=== PATIENT | female | born 1990 | race Caucasian/White ===

== ENCOUNTER → 2018-12-05 11:09 | Outpatient (CLI) | payer OTHER, SELFPAY ==
--- NOTE | 2018-12-05 11:30 | XR_ITS ---
EXAM: XR lumbar spine 2-3V HISTORY: ITS.REASON: LOW BACK PAIN ORDERING PHYSICIAN: Kerry Marcos PATIENT AGE: 28 years COMPARISON: None FINDINGS: Normal alignment. No fracture or dislocation. No lytic or blastic change. No significant degenerative change. The disc spaces are preserved. There is a limbus vertebra involving the anterosuperior aspect of L4 IMPRESSION: No acute finding Limbus vertebra of L4
--- NOTE | 2018-12-05 11:30 | XR_ITS ---
XR hip RT 2-3V w/pelvis HISTORY: ITS.REASON: RT HIP PAIN ORDERING PHYSICIAN: Kerry Marcos PATIENT AGE: 28 years COMPARISON: None FINDINGS: No fracture or dislocation is evident. No significant degenerative change. No lytic or blastic change. Unremarkable soft tissues IMPRESSION: Negative hip
[2018-12-05 12:06] LABS: Urine Pregnancy, HCG Qual. Negative (Negative)
== END ==
PROVIDERS: Radiology Diagnostic Radiology; PCP Nurse Practitioner Family; Visit Provider Nurse Practitioner Family
DX: M54.5 Low back pain (principal); M25.551 Pain in right hip
CPT/HCPCS: 72100; 73502; 81025

== ENCOUNTER → 2019-02-09 18:15 | Outpatient (CLI) | payer OTHER, SELFPAY ==
[2019-02-13 07:01] LABS: Neisseria gonorrhoeae, NAA Negative (Negative)
== END ==
PROVIDERS: Visit Provider Nurse Practitioner Obstetrics & Gynecology
DX: R39.89 Other symptoms and signs involving the genitourinary system (principal); Z72.51 High risk heterosexual behavior
CPT/HCPCS: 87086; 87088; 87186; 87491; 87591

== ENCOUNTER → 2019-04-12 11:44 | Outpatient (CLI) | payer OTHER, SELFPAY ==
--- NOTE | 2019-04-12 11:48 | XR_ITS ---
XR shoulder RT min 2V HISTORY: Right shoulder pain ITS.REASON: RT ARM PAIN ORDERING PHYSICIAN: Kady Coelho APRN PATIENT AGE: 28 years Comparison: None FINDINGS: No fracture or dislocation. No lytic or blastic change. There is normal mineralization. The joint spaces are well-preserved. No significant degenerative/arthritic changes. No erosive changes evident. IMPRESSION: Negative, no acute finding
--- NOTE | 2019-04-12 11:48 | XR_ITS ---
EXAM: XR cervical spine 3V HISTORY: ITS.REASON: RT ARM PAIN ORDERING PHYSICIAN: Kady Coelho APRN PATIENT AGE: 28 years COMPARISON: None FINDINGS: Normal alignment. No fracture or dislocation. No lytic or blastic change. No significant degenerative change. The disc spaces are preserved. There is reversal the cervical lordosis which may be due to patient positioning or muscle spasm. No cervical rib IMPRESSION: Reversal of lordosis otherwise negative
== END ==
PROVIDERS: PCP Nurse Practitioner Family; Visit Provider Nurse Practitioner Family
DX: M79.601 Pain in right arm (principal); M40.50 Lordosis, unspecified, site unspecified
CPT/HCPCS: 72040; 73030

== ENCOUNTER 2019-05-21 08:30 | Outpatient (RCR) | payer OTHER, SELFPAY | END 2019-05-21 08:35 | disposition home or self-care (01) | LOC: PT 08:30 | PROVIDERS: Visit Provider Nurse Practitioner Family | DX: M54.2 Cervicalgia (principal) | CPT/HCPCS: 97010; 97035; 97110; 97140; 97163 ==

== ENCOUNTER → 2019-05-21 11:46 | Outpatient (CLI) | payer OTHER, SELFPAY ==
[2019-05-21 15:06] LABS: HCG,Quantitative 12773 mIU/mL
== END ==
PROVIDERS: PCP Nurse Practitioner Obstetrics & Gynecology; Visit Provider Emergency Medicine
DX: Z32.00 Encounter for pregnancy test, result unknown (principal)
CPT/HCPCS: 36415; 84702

== ENCOUNTER → 2019-06-04 10:45 | Outpatient (CLI) | payer OTHER, SELFPAY ==
[2019-06-04 11:23] LABS: Basophils % 0.1 % (0.1-2.0); Eosinophils # 0.1 K/mm3 (0.0-0.4); Eosinophils % 0.5 % (0.1-12.0); Hematocrit 35.4 % (37.0-47.0); Hemoglobin 11.7 g/dL (12.2-16.2); Lymphocytes # 1.8 K/mm3 (0.7-4.5); Lymphocytes % 20.2 % (10-50); Mean Corpuscular HGB Conc 33.2 g/dL (31.8-35.4); Mean Corpuscular Hemoglobin 28.6 pg (27.0-31.2); Mean Corpuscular Volume 86.2 fl (81-99); Mean Platelet Volume 6.9 fl (7.4-10.4); Monocytes # 0.3 K/mm3 (0.1-1.0); Monocytes % 3.7 % (1.7-9.3); Neutrophils # 6.8 K/mm3 (1.8-7.8); Neutrophils % 75.5 % (37.0-80.0); Platelet Count 288 K/mm3 (142-424); Red Blood Count 4.11 M/mm3 (4.20-5.40); Red Cell Distribution Width 13.2 % (11.5-17.5)
[2019-06-05 08:42] LABS: HIV Screen 4th Generation wRfx Non Reactive (Non Reactive); Rubella Antibodies, IgG <0.90 index (Immune >0.99)
[2019-06-07 08:05] LABS: Rapid Plasma Reagin Ab Titer Non Reactive (NonRea<1:1)
[2019-06-07 08:16] LABS: Hepatitis B Surface Antigen Negative (Negative); Hepatitis C Antibody <0.1 s/co ratio (0.0-0.9)
== END ==
PROVIDERS: Visit Provider Nurse Practitioner Obstetrics & Gynecology
DX: Z34.90 Encounter for supervision of normal pregnancy, unspecified, unspecified trimester (principal)
CPT/HCPCS: 36415; 85025; 86592; 86703; 86762; 86850; 87340; 87380; G0432

== ENCOUNTER → 2019-06-06 14:07 | Outpatient (CLI) | payer OTHER, SELFPAY ==
--- NOTE | 2019-06-06 14:08 | US_ITS ---
US OB transvaginal CLINICAL INDICATION: ITS.REASON: Dates OB before 12 wks, spotting in first trimeste ORDERING PHYSICIAN: Randolph Mejia MD PATIENT AGE: 28 years Comparison: 05/17/2019. FINDINGS: Uterus shows a gestational sac with pole and yolk sac within the endometrial cavity. The crown-rump length is 1.85 cm corresponding to 8 weeks and 3 days gestational age. Heart rate is 179 8/m. Right ovary is 3.8 x 1.8 x 2.3 cm with normal blood flow. Left ovary is 2.6 x 1.6 x 2.6 cm also with normal blood flow. There are no adnexal lesions. There is no fluid in the cul-de-sac. IMPRESSION: Intrauterine fetus approximately 8 weeks and 3 days gestational age and heart rate of 179 bpm.
== END ==
PROVIDERS: PCP Nurse Practitioner Family; Visit Provider Nurse Practitioner Obstetrics & Gynecology
DX: O26.841 Uterine size-date discrepancy, first trimester (principal); O26.851 Spotting complicating pregnancy, first trimester
CPT/HCPCS: 76817

== ENCOUNTER 2019-06-27 09:30 | Outpatient (CLI) | payer OTHER, SELFPAY ==
[2019-06-27 10:03] VITALS: BP 115/71; PULSE 85; RESP 20; TEMP 36.5; O2SAT 99
== END 2019-06-27 10:20 | disposition home or self-care (01) ==
PROVIDERS: PCP Nurse Practitioner Family; Visit Provider Nurse Practitioner Obstetrics & Gynecology
DX: Z34.90 Encounter for supervision of normal pregnancy, unspecified, unspecified trimester (principal)
CPT/HCPCS: 87086; 96372

== ENCOUNTER 2019-06-27 12:23 | Observation (INO) ==
--- NOTE | 2019-06-27 12:58 | Emergency Department Note ---
ED Disposition Clinical Impression: UTI (urinary tract infection) in in first trimester Disposition: Admitted as Observation Condition on Discharge: Good Referrals: Kerry Marcos APRN [Primary Care Provider] - Time of Disposition: 14:44 - Critical Care Critical Care Time: No Attestation: On 06/27/19, the high probability of a clinically significant, sudden or life threatening deterioration of the following system(s) required my full and direct attention, intervention and personal management. The time I documented below is in addition to time spent performing reported procedures but includes the following listed in this critical care notation. Medical Decision Making - Medical Records Medical records reviewed: Yes: I reviewed the patient's medical records. - Christiano Inquiry Pt receiving controlled substance: No Christiano was queried for this patient: No Vital Signs: 06/27/19 12:32 Temperature 98.3 F Temperature Source Oral Pulse Rate [Left Radial] 94 H Respiratory Rate 16 Blood Pressure [Right Arm] 125/83 Blood Pressure Mean [Right Arm] 97 Blood Pressure Source [Right Arm] Automatic Cuff Blood Pressure Position [Right Arm] Sitting 02 Sat by Pulse Oximetry 98 Oxygen Delivery Method Room Air - Lab Data Lab results reviewed: Yes: I reviewed the patient's lab results. Lab Results 06/27/19 12:55: Urine Color Red, Urine Appearance Clear, Urine pH 5.0, Ur Specific [place] 1.025, Urine Protein 2+, Urine Glucose (UA) 1+, Urine Ketones 2+, Urine Blood Negative, Urine Nitrate Positive, Urine Bilirubin Negative, Urine Urobilinogen >=8.0, Ur Leukocyte Esterase 1+ A, Urine RBC None, Urine WBC Occasional, Ur Squamous Epith Cells Occasional, Urine Bacteria Trace 06/27/19 13:05: WBC 10.0, RBC 3.90 L, Hgb 12.3, Hct 35.0 L, MCV 89.8, MCH 31.5 H , MCHC 35.1, RDW 13.5, Plt Count 269, MPV 7.1 L, Neut % (Auto) 81.6 H, Lymph % (Auto) 14.6, [place] % (Auto) 3.2, Eos % (Auto) 0.5, Baso % (Auto) 0.2, Neut # (Auto) 8.2 H, Lymph # (Auto) 1.5, [place] # (Auto) 0.3, Eos # (Auto) 0.1, Baso # (Auto) 0.0 06/27/19 13:05: Sodium 137, Potassium 4.0, Chloride 102, Carbon Dioxide 25, Anion Gap 14.0, BUN 7, Creatinine 0.64, Estimated Creat Clear 168, Estimated GFR 111, Est GFR ( Amer) 135, Glucose 94, Calcium 9.3, Total Bilirubin 0.3, AST 17, ALT 16, Alkaline Phosphatase 66, Total Protein 7.5, Albumin 2.9 L, Globulin 4.6 H, Albumin/Globulin Ratio 0.6 L Result diagrams: 06/27/19 13:05 06/27/19 13:05 Orders (Tests/Meds): ORDERS Category Date Time Status Urine Culture Stat Micro 06/27/19 12:55 Received - Physician Consults Physician Consulted: ana dey Time: 14:43 Reason -: Admission Nausea/Vomiting/Diarrhea HPI - General Chief complaint: Nausea/Vomiting/Diarrhea Stated complaint: 12 weeks ,has uti, vomiting Time Seen by Provider: 06/27/19 12:54 Mode of Arrival: Ambulatory Source of Information: Patient Limitations: No Limitations Description of Symptoms (Recalled from ER Triage Doc. by RN): to ed per pvt car pt sent to ed per dr biggs for eval due to nausea, vomiting, upper abd cramping starting today after receiving Rocephin IM for UTI. pt states symptoms started approx 1hr after receiving injection. - Related Data Home Medications Medication Instructions Recorded Confirmed pediatric multivitamin no.7-folic 100 mcg PO DAILY tab 06/04/19 06/27/19 acid 100 mcg chewable tablet Terconazole 1 appful VAGINAL QHS 06/27/19 06/27/19 cephALEXin [Keflex 500mg Cap] 1,000 mg PO BID 06/27/19 06/27/19 Previous Rx's Medication Instructions Recorded Promethazine HCl [Phenergan 25mg 25 mg PO Q6H PRN 3 Days #10 tab 06/20/19 tab] Allergies Allergy/AdvReac Type Severity Reaction Status Date / Time amoxicillin [From Augmentin] Allergy Mild reaction Verified 06/27/19 10:03 as a child (rash) clavulanic acid Allergy Mild reaction Verified 06/27/19 10:03 [From Augmentin] as a child (rash) sulfisoxazole Allergy Mild REACTION Verified 06/27/19 10:03 [From Pediazole] WHEN SHE WAS A CHILD (rash) azithromycin [From Zithromax] AdvReac Mild NA-NAUSEA/V Verified 06/27/19 09:04 OMITING erythromycin base AdvReac Mild NA-NAUSEA/V Verified 06/27/19 09:04 OMITING H History - Hepatitis A Screen Drug use history?: No High risk sexual behaviors?: No History of sexually transmitted infection?: No Currently employed?: No Childcare worker?: No Do you have indoor plumbing?: Yes Do you have electricity?: Yes Attestation statement:: This patient has been screened for Hepatitis A risk factors. I have reviewed the patient's past medical history: Yes Amputation: No Fractures: No - Social History Smoking Status: Never smoker Alcohol Intake: never Substance Use Type: denies use Occupational Status: other Family Hx:: Asthma, Diabetes, Stroke, Cancer Para: 2 ROS Obtained: Yes All systems reviewed & no additional complaints - Constitutional Constitutional: Denies fever(s) - Eyes Eyes: Denies change in vision - Cardiovascular Cardiovascular: Denies chest pain, Denies chest pain at rest, Denies diaphoresis, Denies dyspnea - Respiratory Respiratory: No chest congestion, No cough, No dyspnea - Gastrointestinal Gastrointestingal: Reports: abdominal pain, vomiting - Genitourinary Male Genitourinary: Reports other (weeks ) - Musculoskeletal Musculoskeletal: Denies joint pain, Denies joint stiffness, Denies joint swelling - Integumentary/Breasts Skin/Breast: Denies rash, Denies skin pain - Neurologic Neurologic: Denies headache(s) - Hematologic/Lymphatic Henatologic/Lymphatic: Denies easy bleeding, Denies easy bruising Physical Exam - General General appearance: alert, in no apparent distress - Head Head exam: atraumatic, normocephalic, normal inspection - Eye Eye exam: Present: normal appearance, PERRL, EOMI - ENT ENT exam: Present: normal exam, normal oropharynx, mucous membranes moist, TM's normal bilaterally, normal external ear exam - Neck Neck exam: Present: normal inspection, full ROM, trachea midline. Absent: meningismus, lymphadenopathy - Chest Chest inspection: Present: normal inspection, symmetric chest wall rise. Absent: tenderness - Respiratory Respiratory exam: Present: normal lung sounds bilaterally - Cardiovascular Cardiovascular exam: Present: regular rate, normal rhythm. Absent: JVD - Abdominal Exam Abdominal exam: Present: soft, tenderness. Absent: distention Abdominal tenderness: Present: suprapubic - Extremities Exam Extremities exam: Present: normal inspection, full ROM, normal capillary refill. Absent: calf tenderness - Back Exam Back exam: Present: normal inspection. Absent: tenderness - Neurological Exam Neurological exam: Present: alert, oriented X3 - Psychiatric Psychiatric exam: Present: normal affect, normal mood - Skin Skin exam: Present: warm, dry, intact, normal color - Lymphatic Lymphatic Findings: no adenopathy
[2019-06-27 13:00] LABS: Microscopic, Urine URINE MICROSCOPIC (MICROSCOPIC)
[2019-06-27 13:21] LABS: Basophils % 0.2 % (0.1-2.0); Eosinophils # 0.1 K/mm3 (0.0-0.4); Eosinophils % 0.5 % (0.1-12.0); Hemoglobin 12.3 g/dL (12.2-16.2); Lymphocytes # 1.5 K/mm3 (0.7-4.5); Lymphocytes % 14.6 % (10-50); Mean Corpuscular HGB Conc 35.1 g/dL (31.8-35.4); Mean Corpuscular Volume 89.8 fl (81-99); Mean Platelet Volume 7.1 fl (7.4-10.4); Monocytes # 0.3 K/mm3 (0.1-1.0); Monocytes % 3.2 % (1.7-9.3); Neutrophils # 8.2 K/mm3 (1.8-7.8); Neutrophils % 81.6 % (37.0-80.0); Platelet Count 269 K/mm3 (142-424); Red Cell Distribution Width 13.5 % (11.5-17.5)
[2019-06-27 13:26] LABS: Appearance,Urine CLEAR (Clear); Bilirubin,Urine Negative (Negative); Blood, Urine Negative (Negative); Glucose,Urine (UA) 1+ (Negative); Ketones,Urine 2+ (Negative); Leukocyte Esterase,Urine 1+ (Negative); Protein,Urine 2+ (Negative); Specific Gravity, Urine 1.025 (1.005-1.030); Urobilinogen,Urine >=8.0 EU/dl (0.2)
[2019-06-27 13:36] LABS: Color,Urine Red (Yellow)
[2019-06-27 13:37] LABS: Bacteria,Urine Trace /lpf; Squamous Epithelial Cell,Urine Occasional #/hpf (0-5); WBC,Urine Occasional #/hpf (0-3)
[2019-06-27 13:44] LABS: Albumin Level 2.9 gm/dL (3.4-5.0); Albumin/Globulin Ratio 0.6 (1.1-1.8); Bilirubin,Total 0.3 mg/dL (0.2-1.0); Calcium 9.3 mg/dL (8.5-10.1); Globulin 4.6 gm/dl (1.3-3.2); Total Protein,Serum 7.5 gm/dL (6.4-8.2)
[2019-06-28 04:51] VITALS: BP 98/58
[2019-06-28 06:33] LABS: Eosinophils # 0.1 K/mm3 (0.0-0.4); Monocytes # 0.3 K/mm3 (0.1-1.0); Red Cell Distribution Width 13.5 % (11.5-17.5)
[2019-06-28 06:43] LABS: Anion Gap 14.7 mEq/L (5-15); Calcium 8.9 mg/dL (8.5-10.1)
[2019-06-28 06:50] LABS: Basophils % 0.1 % (0.1-2.0); Eosinophils % 1.6 % (0.1-12.0); Lymphocytes % 27.8 % (10-50); Mean Corpuscular HGB Conc 33.5 g/dL (31.8-35.4); Mean Corpuscular Volume 90.2 fl (81-99); Mean Platelet Volume 6.9 fl (7.4-10.4); Monocytes % 4.1 % (1.7-9.3); Neutrophils # 4.8 K/mm3 (1.8-7.8); Neutrophils % 66.4 % (37.0-80.0); Platelet Count 234 K/mm3 (142-424); Red Blood Count 3.55 M/mm3 (4.20-5.40); White Blood Count 7.3 K/mm3 (4.8-10.8)
[2019-06-28 07:17] LABS: Hemoglobin 10.7 g/dL (12.2-16.2)
--- NOTE | 2019-06-28 09:49 | History & Physical Report ---
OB - H&P: HPI Antepartum - History of Present Illness Chief complaint: Nausea vomiting and diarrhea, UTI History of present illness: She is a 28-year-old 2 para 1 at 12 weeks gestational age. She has had a urinary tract infection for the last couple of weeks and was recently seen in the ER. She was seen in my office the day of admission and started on Rocephin again for her UTI. She had been taking Keflex. She said that shortly after she received her Rocephin she began having nausea and vomiting as well as diarrhea. She came back to the ER. As result of this we elected to admit her for rehydration and observation. - History of Present Criteria for establishing EDC:: LMP confirmed by 1st trimester US Obstetrical complications: none Medical complications: none [facility] History I have reviewed the patient's past medical history: Yes *Have you ever received a pneumonia vaccine?: No *Have you received a flu vaccine this season?: No Other Surgeries: No: Amputation: No Fractures: No - *Social History Smoking Status: Never smoker Alcohol Intake: never Substance Use Type: denies use *Occupational Status:: employed *Travel in the last 8 weeks: None Family Hx:: Asthma, Diabetes, Stroke, Cancer Para: 2 Review of Systems - Review of Systems Review of systems:: pertinent systems reviewed and negative unless documented below (, Upon) - *Neurologic Denies headache(s) Meds Home Medications Medication Instructions Recorded Confirmed Type pediatric multivitamin no.7-folic 100 mcg PO DAILY tab 06/04/19 06/27/19 History acid 100 mcg chewable tablet Promethazine HCl [Phenergan 25mg 25 mg PO Q6H PRN 3 Days #10 tab 06/20/19 06/27/19 Rx tab] RX: Terconazole 1 appful VAGINAL QHS 06/27/19 06/27/19 History cephALEXin [Keflex 500mg Cap] 1,000 mg PO BID 06/27/19 06/27/19 History Allergies Allergy/AdvReac Type Severity Reaction Status Date / Time amoxicillin [From Augmentin] Allergy Mild reaction Verified 06/27/19 10:03 as a child (rash) clavulanic acid Allergy Mild reaction Verified 06/27/19 10:03 [From Augmentin] as a child (rash) sulfisoxazole Allergy Mild REACTION Verified 06/27/19 10:03 [From Pediazole] WHEN SHE WAS A CHILD (rash) azithromycin [From Zithromax] AdvReac Mild NA-NAUSEA/V Verified 06/27/19 09:04 OMITING erythromycin base AdvReac Mild NA-NAUSEA/V Verified 06/27/19 09:04 OMITING OB - H&P: Exam - Physical Exam Vital signs: Temp Pulse Resp BP Pulse Ox 98.1 F 83 14 98/58 L 97 06/28/19 04:46 06/28/19 04:46 06/28/19 04:46 06/28/19 04:46 06/28/19 04:46 OB - Results - Labs Labs: Short CBC 06/27/19 06/28/19 Range/Units 13:05 05:56 WBC 10.0 7.3 D (4.8-10.8) K/mm3 Hgb 12.3 10.7 L D (12.2-16.2) g/dL Hct 35.0 L 32.0 L (37.0-47.0) % Plt Count 269 234 (142-424) K/mm3 BMP 06/27/19 06/28/19 13:05 05:56 Sodium 137 138 Potassium 4.0 3.7 Chloride 102 103 Carbon Dioxide 25 24 BUN 7 7 Creatinine 0.64 0.67 Glucose 94 144 H D Calcium 9.3 8.9 Liver Function 06/27/19 Range/Units 13:05 Total Bilirubin 0.3 (0.2-1.0) mg/dL AST 17 (15-37) U/L ALT 16 (12-78) U/L Alkaline Phosphatase 66 (46-116) U/L Albumin 2.9 L (3.4-5.0) gm/dL Urine 06/27/19 Range/Units 12:55 Urine Color Red (Yellow) Urine Appearance Clear (Clear) Urine pH 5.0 (5.0-8.5) Ur Specific [place] 1.025 (1.005-1.030) Urine Protein 2+ (Negative) Urine Glucose (UA) 1+ (Negative) OB - A/P Antepartum (1) Hyperemesis affecting , antepartum Current visit: Yes Status: Acute (2) UTI (urinary tract infection) Current visit: No Status: Acute - Additional Plan Planning to breastfeed?: No Plan: other Additional Information:: We have admitted her for rehydration as well as control of her nausea and vomiting. We will plan to observe her overnight.
--- NOTE | 2019-06-28 09:51 | Discharge Summary ---
General - General Admission date:: 06/27/19 Discharge date: 06/28/19 HPI HPI: She is a 28-year-old 2 para 1 at 12 weeks gestational age with nausea vomiting and dehydration. She also had diarrhea. She received Rocephin yesterday for urinary tract infection and was concerned about having diarrhea and nausea directly after this. She came into the ER and as result of that we elected to admit her for observation. Hospital Course Hospital Course: She received IV fluids as well as some Phenergan. She is done well overnight. She is eating and drinking and ambulating. She is had no further episodes of nausea vomiting or diarrhea. Objective Vital signs: Temp Pulse Resp BP Pulse Ox 98.1 F 83 14 98/58 L 97 06/28/19 04:46 06/28/19 04:46 06/28/19 04:46 06/28/19 04:46 06/28/19 04:46 no acute distress Results Labs on day of discharge: Labs from last 24 hours 06/28/19 06/28/19 06/27/19 05:56 05:56 13:05 WBC 7.3 D RBC 3.55 L Hgb 10.7 L D Hct 32.0 L MCV 90.2 MCH 30.2 MCHC 33.5 RDW 13.5 Plt Count 234 MPV 6.9 L Neut % (Auto) 66.4 Lymph % (Auto) 27.8 [place] % (Auto) 4.1 Eos % (Auto) 1.6 Baso % (Auto) 0.1 Neut # (Auto) 4.8 Lymph # (Auto) 2.0 [place] # (Auto) 0.3 Eos # (Auto) 0.1 Baso # (Auto) 0.0 Sodium 138 137 Potassium 3.7 4.0 Chloride 103 102 Carbon Dioxide 24 25 Anion Gap 14.7 14.0 BUN 7 7 Creatinine 0.67 0.64 Estimated Creat Clear 161 168 Estimated GFR 106 111 Est GFR ( Amer) 128 135 Glucose 144 H D 94 Calcium 8.9 9.3 Total Bilirubin 0.3 AST 17 ALT 16 Alkaline Phosphatase 66 Total Protein 7.5 Albumin 2.9 L Globulin 4.6 H Albumin/Globulin Ratio 0.6 L Urine Color Urine Appearance Urine pH Ur Specific [place] Urine Protein Urine Glucose (UA) Urine Ketones Urine Blood Urine Nitrate Urine Bilirubin Urine Urobilinogen Ur Leukocyte Esterase Urine RBC Urine WBC Ur Squamous Epith Cells Urine Bacteria 06/27/19 06/27/19 13:05 12:55 WBC 10.0 RBC 3.90 L Hgb 12.3 Hct 35.0 L MCV 89.8 MCH 31.5 H MCHC 35.1 RDW 13.5 Plt Count 269 MPV 7.1 L Neut % (Auto) 81.6 H Lymph % (Auto) 14.6 [place] % (Auto) 3.2 Eos % (Auto) 0.5 Baso % (Auto) 0.2 Neut # (Auto) 8.2 H Lymph # (Auto) 1.5 [place] # (Auto) 0.3 Eos # (Auto) 0.1 Baso # (Auto) 0.0 Sodium Potassium Chloride Carbon Dioxide Anion Gap BUN Creatinine Estimated Creat Clear Estimated GFR Est GFR ( Amer) Glucose Calcium Total Bilirubin AST ALT Alkaline Phosphatase Total Protein Albumin Globulin Albumin/Globulin Ratio Urine Color Red Urine Appearance Clear Urine pH 5.0 Ur Specific [place] 1.025 Urine Protein 2+ Urine Glucose (UA) 1+ Urine Ketones 2+ Urine Blood Negative Urine Nitrate Positive Urine Bilirubin Negative Urine Urobilinogen >=8.0 Ur Leukocyte Esterase 1+ A Urine RBC None Urine WBC Occasional Ur Squamous Epith Cells Occasional Urine Bacteria Trace DS: Diagnosis - Discharge Diagnosis (1) Hyperemesis affecting , antepartum Status: Acute (2) UTI (urinary tract infection) Status: Acute Discharge Plan - Patient Discharge Instructions ACTIVITY: Continue current activity DIET: continue same diet Additional Instructions: DRINK PLENTY OF FLUIDS FOLLOW UP WITH DR. MEJIA ON Tuesday AT 10:45AM Patient Instructions: Vaginal Yeast Infection, Urinary Tract Infection, Antepartum Care - Follow up Plan Follow up with: Randolph Mejia MD [Staff Physician] - Home Medications: Home Medications Medication Instructions Recorded Confirmed Type pediatric multivitamin no.7-folic 100 mcg PO DAILY tab 06/04/19 06/27/19 History acid 100 mcg chewable tablet Promethazine HCl [Phenergan 25mg 25 mg PO Q6H PRN 3 Days #10 tab 06/20/19 06/27/19 Rx tab] RX: Terconazole 1 appful VAGINAL QHS 06/27/19 06/27/19 History cephALEXin [Keflex 500mg Cap] 1,000 mg PO BID 06/27/19 06/27/19 History Prescriptions/Medication Reconciliation: Continued pediatric multivitamin no.7-folic acid 100 mcg chewable tablet 100 mcg PO DAILY tab RX: Terconazole 1 appful VAGINAL QHS Promethazine HCl [Phenergan 25mg tab] 25 mg PO Q6H PRN 3 Days #10 tab PRN Reason: Nausea And Vomiting cephALEXin [Keflex 500mg Cap] 1,000 mg PO BID - Problem Reconciliation Problems Reviewed?: Yes
== END 2019-06-28 10:58 | disposition home or self-care (01) ==
LOC: ER 12:23 → OB 12:23
PROVIDERS: ADMIT Nurse Practitioner Obstetrics & Gynecology; ATTEND Nurse Practitioner Obstetrics & Gynecology
CPT/HCPCS: 36415; 80048; 80053; 81001; 85025; 87086; 99284; G0378

== ENCOUNTER → 2019-08-17 12:40 | Outpatient (CLI) | payer OTHER, SELFPAY ==
--- NOTE | 2019-08-17 12:44 | US_ITS ---
PROCEDURE: US OB /MATERNAL DETAIL CLINICAL INDICATION: us ob complete COMPARISON: OB<[id number] US OB <= 14 weeks fetus from 06/14/2019 FINDINGS: Single viable intrauterine gestation. Cephalic position. Placenta: Posteriorplacenta grade 1. There is average amount fluid. The cervix appears satisfactory. Closed and measuring 4 centimeter in length. Complete survey performed and was unremarkable on the submitted images as in PACS. No discrete anomalies identified on survey imaging by technologist. Active fetus. Three-vessel cord with satisfactory umbilical cord insertion. 4- chamber heart noted. Survey of brain & ventricles Unremarkable. Face and neck survey unremarkable. Diaphragm and chest views unremarkable. Abdomen: Both kidneys noted and unremarkable. Stomach noted and satisfactory. Spine: Survey of the spine satisfactory with no anomalies identified nor imaged. Both arms and legs noted. Visualized portions of the fetus appear to be normal. In Amniotic Fluid: Adequate. Maternal adnexa: No significant findings. Measurements: Average ultrasound age 131 days. Gestational Age 131 days Estimated due date by ultrasound age 0301/13/2020. Estimated weight 247.8 gramsgrams. BPD = 4.16 centimeters equals 18 weeks and 5 days. OFD = 5.45 centimeters equals 19 weeks and 1 day. HC = 15.23 centimeters equals 18 weeks 2 days. AC = 12.89 centimeters equals 18 weeks 4 days. FL = 2.88 centimeters equals 18 weeks 6 days. Growth Percentile= 36 Percent% Heart Rate = 147 bpm Cerebellum = unremarkable. Humerus = unremarkable. HC/AC is 1.18 CI is 0.76 FL/BPD is 0.69 FL/AC is 0.22 IMPRESSION: Single intrauterine fetus in cephalic presentation with heart rate of 147 beats per minute. Estimated gestational age (AUA) is 18 weeks and 5 days. Estimated date of delivery (AUA) is 01/13/2020. Dictated by: Ivan Lara 08/17/2019 14:07 Electronically signed by Ivan Lara in [facility] 08/17/2019 14:07
== END ==
PROVIDERS: PCP Nurse Practitioner Family; Visit Provider Nurse Practitioner Obstetrics & Gynecology
DX: Z36.0 Encounter for antenatal screening for chromosomal anomalies (principal)
CPT/HCPCS: 76811

== ENCOUNTER 2019-08-22 10:50 | Outpatient (CLI) | payer OTHER, SELFPAY ==
[2019-08-22 11:04] VITALS: BP 124/67; PULSE 98; RESP 20; TEMP 36.8; O2SAT 97; BMI 33.3
[2019-08-22 11:21] LABS: Microscopic, Urine URINE MICROSCOPIC (MICROSCOPIC)
[2019-08-22 11:24] LABS: Appearance,Urine CLEAR (Clear); Bilirubin,Urine Negative (Negative); Blood, Urine TRACE-I (Negative); Color,Urine YELLOW (Yellow); Glucose,Urine (UA) Negative (Negative); Ketones,Urine 1+ (Negative); Leukocyte Esterase,Urine 3+ (Negative); Nitrate,Urine Negative (Negative); PH,Urine 6.5 (5.0-8.5); Protein,Urine TRACE (Negative); Specific Gravity, Urine 1.025 (1.005-1.030); Urobilinogen,Urine 0.2 EU/dl (0.2)
[2019-08-22 11:38] LABS: Amphetamine/Metha Screen,Urine Negative ng/mL (<1000); Barbiturates Screen,Urine Negative ng/mL (<200); Benzodiazepines Screen,Urine Negative ng/mL (<200); Cannabinoid Screen,Urine Negative ng/mL (<50); Cocaine Screen,Urine Negative ng/mL (<300); Methadone Screen,Urine Negative ng/mL (<300); Opiate Screen,Urine Negative ng/mL (<300); Phencyclidine Screen,Urine Negative ng/mL (<25)
[2019-08-22 11:47] LABS: Bacteria,Urine 2+ /lpf; WBC,Urine 20-50 #/hpf (0-3)
== END 2019-08-22 11:50 | disposition home or self-care (01) ==
LOC: OBOUT 10:53 → OB 10:53
PROVIDERS: PCP Nurse Practitioner Family; Visit Provider Nurse Practitioner Obstetrics & Gynecology
DX: O23.42 Unspecified infection of urinary tract in pregnancy, second trimester (principal); Z3A.21 21 weeks gestation of pregnancy
CPT/HCPCS: 59025; 80305; 81001; 87086

== ENCOUNTER 2019-09-05 20:30 | Outpatient (CLI) | payer OTHER, SELFPAY ==
[2019-09-05 20:43] VITALS: BP 136/76; PULSE 98; RESP 18; TEMP 36.9; O2SAT 98; BMI 33.5
[2019-09-05 21:16] LABS: Microscopic, Urine URINE MICROSCOPIC (MICROSCOPIC)
[2019-09-05 21:19] LABS: Appearance,Urine CLEAR (Clear); Bilirubin,Urine Negative (Negative); Blood, Urine 1+ (Negative); Color,Urine YELLOW (Yellow); Glucose,Urine (UA) Negative (Negative); Ketones,Urine Negative (Negative); Leukocyte Esterase,Urine 2+ (Negative); Nitrate,Urine Negative (Negative); PH,Urine 5.5 (5.0-8.5); Protein,Urine TRACE (Negative); Specific Gravity, Urine >= 1.030 (1.005-1.030); Urobilinogen,Urine 0.2 EU/dl (0.2)
[2019-09-05 21:27] LABS: Amphetamine/Metha Screen,Urine Negative ng/mL (<1000); Barbiturates Screen,Urine Negative ng/mL (<200); Benzodiazepines Screen,Urine Negative ng/mL (<200); Cannabinoid Screen,Urine Negative ng/mL (<50); Cocaine Screen,Urine Negative ng/mL (<300); Methadone Screen,Urine Negative ng/mL (<300); Opiate Screen,Urine Negative ng/mL (<300); Phencyclidine Screen,Urine Negative ng/mL (<25)
[2019-09-05 21:33] LABS: Bacteria,Urine Trace /lpf; RBC,Urine Occasional #/hpf (0-3); WBC,Urine 50-100 #/hpf (0-3)
[2019-09-05 22:23] LABS: Fetal Fibronectin (Rapid) Positive (Negative)
== END 2019-09-05 22:41 | disposition home or self-care (01) ==
LOC: OBOUT 20:34 → OB 20:34
PROVIDERS: Visit Provider Nurse Practitioner Obstetrics & Gynecology
DX: Z3A.23 23 weeks gestation of pregnancy; O23.42 Unspecified infection of urinary tract in pregnancy, second trimester
CPT/HCPCS: 59025; 80305; 81001; 82731; 87086

== ENCOUNTER 2019-09-07 10:28 | Outpatient (CLI) | payer OTHER, SELFPAY ==
[2019-09-07 10:43] VITALS: BP 134/78; PULSE 109; RESP 18; TEMP 36.3; O2SAT 97; BMI 33.6
[2019-09-07 11:12] LABS: Microscopic, Urine URINE MICROSCOPIC (MICROSCOPIC)
[2019-09-07 11:17] LABS: Appearance,Urine CLEAR (Clear); Bilirubin,Urine Negative (Negative); Blood, Urine 1+ (Negative); Color,Urine YELLOW (Yellow); Glucose,Urine (UA) 2+ (Negative); Ketones,Urine TRACE (Negative); Leukocyte Esterase,Urine 2+ (Negative); Nitrate,Urine Negative (Negative); PH,Urine 5.5 (5.0-8.5); Protein,Urine Negative (Negative); Specific Gravity, Urine >= 1.030 (1.005-1.030); Urobilinogen,Urine 0.2 EU/dl (0.2)
[2019-09-07 11:33] LABS: Amphetamine/Metha Screen,Urine Negative ng/mL (<1000); Barbiturates Screen,Urine Negative ng/mL (<200); Benzodiazepines Screen,Urine Negative ng/mL (<200); Cannabinoid Screen,Urine Negative ng/mL (<50); Cocaine Screen,Urine Negative ng/mL (<300); Methadone Screen,Urine Negative ng/mL (<300); Opiate Screen,Urine Negative ng/mL (<300); Phencyclidine Screen,Urine Negative ng/mL (<25)
[2019-09-07 11:49] LABS: Bacteria,Urine 2+ /lpf; WBC,Urine 20-50 #/hpf (0-3)
== END 2019-09-07 12:08 | disposition home or self-care (01) ==
LOC: OBOUT 10:29 → OB 10:30
PROVIDERS: Visit Provider Nurse Practitioner Obstetrics & Gynecology
DX: O23.42 Unspecified infection of urinary tract in pregnancy, second trimester (principal); Z3A.21 21 weeks gestation of pregnancy; R11.2 Nausea with vomiting, unspecified; R10.31 Right lower quadrant pain
CPT/HCPCS: 59025; 80305; 81001; 87086; 96360; 96372; J2405

== ENCOUNTER → 2019-09-17 16:54 | Outpatient (CLI) | payer OTHER, SELFPAY | PROVIDERS: Visit Provider Nurse Practitioner Obstetrics & Gynecology | DX: N39.0 Urinary tract infection, site not specified (principal) | CPT/HCPCS: 87086 ==

== ENCOUNTER 2019-09-19 09:17 | Outpatient (CLI) | payer SELFPAY ==
[2019-09-19 09:31] VITALS: BMI 33.5
[2019-09-19 09:35] VITALS: BP 128/75; PULSE 111; RESP 18; TEMP 36.8
--- NOTE | 2019-09-19 09:36 | US_ITS ---
PROCEDURE: US OB FOLLOW UP CLINICAL INDICATION: vaginal bleeding COMPARISON: US OB /MATERNAL DETAIL from 08/17/2019 FINDINGS: There is a single live fetus which ended up in cephalic presentation. heart and body motion noted within FHR of 146 beats per minute. Average ultrasound age is 22 weeks 6 days. BPD 22 weeks 5 days. OFD 23 weeks 0 days, HC 22 weeks 2 days, AC 23 weeks 0 days, FL 23 weeks 0 days. Biophysical profile is 8 of 8. Cervix is closed and measures 3.4 cm. Placenta is posterior. No previa or abruption demonstrated. Estimated weight is 541 g which is 18th percentile. IMPRESSION: Live IUP at 22 weeks 6 days as described above Dictated by: Gilbert Del Cid MD 09/19/2019 18:50 Electronically signed by Gilbert Del Cid MD in [facility] 09/19/2019 18:50
[2019-09-19 09:42] LABS: Appearance,Urine CLOUDY (Clear); Bilirubin,Urine Negative (Negative); Blood, Urine 2+ (Negative); Color,Urine YELLOW (Yellow); Glucose,Urine (UA) 1+ (Negative); Ketones,Urine 1+ (Negative); Leukocyte Esterase,Urine 2+ (Negative); Microscopic, Urine URINE MICROSCOPIC (MICROSCOPIC); Nitrate,Urine Negative (Negative); PH,Urine 5.5 (5.0-8.5); Protein,Urine TRACE (Negative); Specific Gravity, Urine >= 1.030 (1.005-1.030); Urobilinogen,Urine 0.2 EU/dl (0.2)
--- NOTE | 2019-09-19 09:47 | HMH.ACPN2 ---
Internal Medicine - PN: Subj *Date: 09/19/19 *Time: 09:47 Interval history: She says that she was having contractions last night and when she wiped in the middle of the night there was some bloody discharge. She said when she got up this morning she passed some bloodstained mucus-like substance that was about the size of a half dollar. She is not simeon at this point time. Her cervix is long closed and the presenting part is high. There is no blood on my glove when I examined her. Exam Vital signs and Labs for Last 24 Hours: Temp Pulse Resp BP 98.2 F 111 H 18 128/75 09/19/19 09:35 09/19/19 09:35 09/19/19 09:35 09/19/19 09:35 I & O for Last 24 hours: Intake & Output 09/16/19 09/17/19 09/18/19 09/19/19 11:59 11:59 11:59 11:59 Weight 183 lb - Constitutional no acute distress Assessment and Plan (1) False labor before 37 completed weeks of gestation Current visit: Yes Status: Acute Category: Medical Code(s): O47.00 - False labor before 37 completed weeks of gestation, unspecified trimester (2) Bleeding in early Current visit: No Status: Acute Category: Medical Code(s): O20.9 - Hemorrhage in early , unspecified - Assessment and plan all Dx Assessment and Plan for all problems:: She had some vaginal bleeding this morning. There is no blood on the glove. She has been struggling with a urinary tract infection and she is taking oral Keflex. We will make arrangements for her to have an ultrasound this morning and if all is well then send her home later.
[2019-09-19 09:52] LABS: Amorphous Sediment,Urine 1+ /lpf; Bacteria,Urine 1+ /lpf; RBC,Urine 20-50 #/hpf (0-3); Squamous Epithelial Cell,Urine 20-50 #/hpf (0-5); WBC,Urine TNTC #/hpf (0-3)
[2019-09-19 09:55] VITALS: BMI 33.5
[2019-09-19 10:00] LABS: Amphetamine/Metha Screen,Urine Negative ng/mL (<1000); Barbiturates Screen,Urine Negative ng/mL (<200); Benzodiazepines Screen,Urine Negative ng/mL (<200); Cannabinoid Screen,Urine Negative ng/mL (<50); Cocaine Screen,Urine Negative ng/mL (<300); Methadone Screen,Urine Negative ng/mL (<300); Opiate Screen,Urine Negative ng/mL (<300); Phencyclidine Screen,Urine Negative ng/mL (<25)
== END 2019-09-19 10:36 | disposition home or self-care (01) ==
LOC: UTC.OUT 09:18 → OB 09:19
PROVIDERS: Visit Provider Nurse Practitioner Obstetrics & Gynecology
DX: O23.42 Unspecified infection of urinary tract in pregnancy, second trimester; Z3A.25 25 weeks gestation of pregnancy
CPT/HCPCS: 59025; 76816; 76819; 80305; 81001; 87086

== ENCOUNTER → 2019-10-18 08:44 | Outpatient (CLI) | payer OTHER, SELFPAY ==
[2019-10-18 09:29] LABS: Glucose,Fasting 100 mg/dL (60-105)
[2019-10-18 10:51] LABS: Glucose 1 Hour 210 mg/dL (74-106)
== END ==
PROVIDERS: Visit Provider Nurse Practitioner Obstetrics & Gynecology
DX: Z34.90 Encounter for supervision of normal pregnancy, unspecified, unspecified trimester (principal)
CPT/HCPCS: 36415; 82951

== ENCOUNTER 2019-10-21 13:34 | Outpatient (CLI) | payer OTHER, SELFPAY ==
[2019-10-21 13:39] VITALS: BMI 34.0
[2019-10-21 13:50] VITALS: BP 126/73; PULSE 95; RESP 20; TEMP 36.4; O2SAT 100; BMI 34.0
[2019-10-21 13:57] LABS: Microscopic, Urine URINE MICROSCOPIC (MICROSCOPIC)
[2019-10-21 14:08] LABS: Appearance,Urine CLEAR (Clear); Blood, Urine Negative (Negative); Color,Urine YELLOW (Yellow); Glucose,Urine (UA) Negative (Negative); Ketones,Urine 3+ (Negative); Leukocyte Esterase,Urine 2+ (Negative); Nitrate,Urine Negative (Negative); PH,Urine 5.5 (5.0-8.5); Protein,Urine Negative (Negative); Specific Gravity, Urine >= 1.030 (1.005-1.030); Urobilinogen,Urine 0.2 EU/dl (0.2)
[2019-10-21 14:11] LABS: Bilirubin,Urine Negative (Negative)
[2019-10-21 14:16] LABS: Amphetamine/Metha Screen,Urine Negative ng/mL (<1000); Barbiturates Screen,Urine Negative ng/mL (<200); Benzodiazepines Screen,Urine Negative ng/mL (<200); Cannabinoid Screen,Urine Negative ng/mL (<50); Cocaine Screen,Urine Negative ng/mL (<300); Methadone Screen,Urine Negative ng/mL (<300); Opiate Screen,Urine Negative ng/mL (<300); Phencyclidine Screen,Urine Negative ng/mL (<25)
[2019-10-21 14:26] LABS: Bacteria,Urine 4+ /lpf; Mucus,Urine 2+ /lpf; WBC,Urine 20-50 #/hpf (0-3)
== END 2019-10-21 16:45 | disposition home or self-care (01) ==
LOC: OBOUT 13:35 → OB 13:35
PROVIDERS: PCP Nurse Practitioner Family; Referring Provider Nurse Practitioner Obstetrics & Gynecology; Visit Provider Obstetrics & Gynecology
DX: O26.892 Other specified pregnancy related conditions, second trimester (principal); Z3A.28 28 weeks gestation of pregnancy; R10.13 Epigastric pain; R11.0 Nausea
CPT/HCPCS: 59025; 80305; 81001; 87086; 96360; 96367

== ENCOUNTER → 2019-10-24 07:57 | Outpatient (CLI) | payer OTHER, SELFPAY ==
[2019-10-24 08:34] LABS: Glucose,Fasting 98 mg/dL (60-105)
[2019-10-24 09:58] LABS: Glucose 1 Hour 225 mg/dL (74-106)
[2019-10-24 10:36] LABS: Glucose 2 Hour 197 mg/dL (74-106)
[2019-10-24 12:02] LABS: Glucose 3 Hour 132 mg/dL (74-106)
== END ==
PROVIDERS: Visit Provider Nurse Practitioner Obstetrics & Gynecology
DX: Z34.90 Encounter for supervision of normal pregnancy, unspecified, unspecified trimester (principal)
CPT/HCPCS: 36415; 82951

== ENCOUNTER 2019-11-27 17:46 | Outpatient (CLI) | payer OTHER, SELFPAY ==
[2019-11-27 18:22] VITALS: BP 119/76; PULSE 102; RESP 18; TEMP 36.7; O2SAT 99; BMI 33.6
[2019-11-27 18:33] LABS: Microscopic, Urine URINE MICROSCOPIC (MICROSCOPIC)
[2019-11-27 18:40] LABS: Appearance,Urine CLEAR (Clear); Bilirubin,Urine Negative (Negative); Blood, Urine TRACE-I (Negative); Color,Urine YELLOW (Yellow); Glucose,Urine (UA) Negative (Negative); Ketones,Urine TRACE (Negative); Leukocyte Esterase,Urine 2+ (Negative); Nitrate,Urine Negative (Negative); Protein,Urine TRACE (Negative); Specific Gravity, Urine >= 1.030 (1.005-1.030); Urobilinogen,Urine 0.2 EU/dl (0.2)
[2019-11-27 18:49] LABS: Fetal Membrane Rupture (Rapid) Negative (Negative)
[2019-11-27 18:50] LABS: Bacteria,Urine Trace /lpf; WBC,Urine 20-50 #/hpf (0-3)
[2019-11-27 19:00] LABS: Amphetamine/Metha Screen,Urine Negative ng/mL (<1000); Barbiturates Screen,Urine Negative ng/mL (<200); Benzodiazepines Screen,Urine Negative ng/mL (<200); Cannabinoid Screen,Urine Negative ng/mL (<50); Cocaine Screen,Urine Negative ng/mL (<300); Methadone Screen,Urine Negative ng/mL (<300); Opiate Screen,Urine Negative ng/mL (<300); Phencyclidine Screen,Urine Negative ng/mL (<25)
== END 2019-11-27 18:55 | disposition home or self-care (01) ==
LOC: OBOUT 17:48 → OB 17:49
PROVIDERS: Visit Provider Nurse Practitioner Obstetrics & Gynecology
DX: O47.03 False labor before 37 completed weeks of gestation, third trimester (principal); Z3A.33 33 weeks gestation of pregnancy
CPT/HCPCS: 59025; 80305; 81001; 84112; 87086; G0463

== ENCOUNTER → 2019-12-14 14:43 | Outpatient (CLI) | payer OTHER, SELFPAY | PROVIDERS: Visit Provider Nurse Practitioner Obstetrics & Gynecology | DX: Z34.90 Encounter for supervision of normal pregnancy, unspecified, unspecified trimester (principal); Z3A.35 35 weeks gestation of pregnancy | CPT/HCPCS: 86403 ==

== ENCOUNTER → 2019-12-25 17:21 | Outpatient (CLI) | payer OTHER, SELFPAY ==
[2019-12-25 17:23] LABS: Microscopic, Urine URINE MICROSCOPIC (MICROSCOPIC)
[2019-12-25 17:39] LABS: Appearance,Urine CLEAR (Clear); Bilirubin,Urine Negative (Negative); Blood, Urine 1+ (Negative); Color,Urine YELLOW (Yellow); Glucose,Urine (UA) 2+ (Negative); Ketones,Urine TRACE (Negative); Leukocyte Esterase,Urine 1+ (Negative); Nitrate,Urine Negative (Negative); Protein,Urine Negative (Negative); Specific Gravity, Urine >= 1.030 (1.005-1.030); Urobilinogen,Urine 0.2 EU/dl (0.2)
[2019-12-25 17:52] LABS: Bacteria,Urine 2+ /lpf; Transitional Epi Cells,Urine OCC #/lpf (0-3); WBC,Urine TNTC #/hpf (0-3)
== END ==
PROVIDERS: Visit Provider Nurse Practitioner Obstetrics & Gynecology
DX: Z34.90 Encounter for supervision of normal pregnancy, unspecified, unspecified trimester (principal)
CPT/HCPCS: 81001; 87086

== ENCOUNTER 2019-12-26 18:12 | Outpatient (CLI) | payer OTHER, SELFPAY ==
[2019-12-26 18:19] VITALS: BMI 34.2
[2019-12-26 18:31] VITALS: BP 139/83; PULSE 112; RESP 18; TEMP 36.5; O2SAT 100; BMI 34.2
[2019-12-26 18:43] LABS: Microscopic, Urine URINE MICROSCOPIC (MICROSCOPIC)
[2019-12-26 18:44] LABS: Appearance,Urine CLEAR (Clear); Bilirubin,Urine Negative (Negative); Blood, Urine 3+ (Negative); Color,Urine YELLOW (Yellow); Glucose,Urine (UA) TRACE (Negative); Ketones,Urine 1+ (Negative); Leukocyte Esterase,Urine 2+ (Negative); Nitrate,Urine Negative (Negative); PH,Urine 5.5 (5.0-8.5); Protein,Urine 1+ (Negative); Specific Gravity, Urine >= 1.030 (1.005-1.030); Urobilinogen,Urine 0.2 EU/dl (0.2)
[2019-12-26 18:52] LABS: Amphetamine/Metha Screen,Urine Negative ng/mL (<1000); Barbiturates Screen,Urine Negative ng/mL (<200); Benzodiazepines Screen,Urine Negative ng/mL (<200); Cannabinoid Screen,Urine Negative ng/mL (<50); Cocaine Screen,Urine Negative ng/mL (<300); Methadone Screen,Urine Negative ng/mL (<300); Opiate Screen,Urine Negative ng/mL (<300); Phencyclidine Screen,Urine Negative ng/mL (<25)
[2019-12-26 18:54] LABS: Amorphous Sediment,Urine 2+ /lpf; Bacteria,Urine 2+ /lpf; WBC,Urine 50-100 #/hpf (0-3)
== END 2019-12-26 21:37 | disposition home or self-care (01) ==
LOC: OB 12-27 11:54 → OBOUT 12-27 11:54
PROVIDERS: Visit Provider Nurse Practitioner Obstetrics & Gynecology
DX: O60.03 Preterm labor without delivery, third trimester (principal); Z3A.37 37 weeks gestation of pregnancy
CPT/HCPCS: 59025; 80305; 81001; 87086; 96360; 96365; G0463; J0595

== ENCOUNTER 2019-12-28 18:12 | Outpatient (CLI) | payer OTHER, SELFPAY ==
[2019-12-28 18:50] VITALS: BP 123/70; PULSE 94; RESP 18; TEMP 36.8; O2SAT 98; BMI 34.9; BMI 36.1
[2019-12-28 18:57] LABS: Microscopic, Urine URINE MICROSCOPIC (MICROSCOPIC)
[2019-12-28 19:23] LABS: Fetal Membrane Rupture (Rapid) Negative (Negative)
[2019-12-28 19:30] LABS: Appearance,Urine CLOUDY (Clear); Bilirubin,Urine Negative (Negative); Blood, Urine TRACE-I (Negative); Color,Urine YELLOW (Yellow); Glucose,Urine (UA) TRACE (Negative); Ketones,Urine TRACE (Negative); Leukocyte Esterase,Urine 2+ (Negative); Nitrate,Urine Negative (Negative); PH,Urine 5.5 (5.0-8.5); Protein,Urine 1+ (Negative); Specific Gravity, Urine >= 1.030 (1.005-1.030); Urobilinogen,Urine 0.2 EU/dl (0.2)
[2019-12-28 19:34] LABS: Amorphous Sediment,Urine 4+ /lpf; WBC,Urine 20-50 #/hpf (0-3)
[2019-12-28 19:41] LABS: Amphetamine/Metha Screen,Urine Negative ng/mL (<1000); Barbiturates Screen,Urine Negative ng/mL (<200); Benzodiazepines Screen,Urine Negative ng/mL (<200); Cannabinoid Screen,Urine Negative ng/mL (<50); Cocaine Screen,Urine Negative ng/mL (<300); Methadone Screen,Urine Negative ng/mL (<300); Opiate Screen,Urine Positive ng/mL (<300); Phencyclidine Screen,Urine Negative ng/mL (<25)
== END 2019-12-28 20:05 | disposition home or self-care (01) ==
LOC: OBOUT 18:15 → OB 18:16
PROVIDERS: PCP Nurse Practitioner Obstetrics & Gynecology; Visit Provider Nurse Practitioner Obstetrics & Gynecology
DX: O60.03 Preterm labor without delivery, third trimester (principal); Z3A.37 37 weeks gestation of pregnancy
CPT/HCPCS: 59025; 80305; 81001; 84112; 87086; 87088; 87186; G0463

== ENCOUNTER 2019-12-31 04:39 | Inpatient (IN) ==
[2019-12-31 05:50] LABS: Basophils % 0.1 % (0.1-2.0); Eosinophils # 0.1 K/mm3 (0.0-0.4); Eosinophils % 0.6 % (0.1-12.0); Hemoglobin 12.1 g/dL (12.2-16.2); Lymphocytes # 2.3 K/mm3 (0.7-4.5); Lymphocytes % 20.6 % (10-50); Mean Corpuscular HGB Conc 33.5 g/dL (31.8-35.4); Mean Corpuscular Volume 86.5 fl (81-99); Mean Platelet Volume 7.8 fl (7.4-10.4); Monocytes # 0.5 K/mm3 (0.1-1.0); Monocytes % 4.4 % (1.7-9.3); Neutrophils # 8.3 K/mm3 (1.8-7.8); Neutrophils % 74.2 % (37.0-80.0); Platelet Count 242 K/mm3 (142-424); Red Blood Count 4.17 M/mm3 (4.20-5.40); White Blood Count 11.2 K/mm3 (4.8-10.8)
[2019-12-31 05:51] LABS: Microscopic, Urine URINE MICROSCOPIC (MICROSCOPIC)
[2019-12-31 05:52] LABS: Appearance,Urine CLOUDY (Clear); Bilirubin,Urine Negative (Negative); Blood, Urine TRACE-L (Negative); Color,Urine YELLOW (Yellow); Glucose,Urine (UA) Negative (Negative); Ketones,Urine Negative (Negative); Leukocyte Esterase,Urine 2+ (Negative); Protein,Urine Negative (Negative); Specific Gravity, Urine >= 1.030 (1.005-1.030); Urobilinogen,Urine 0.2 EU/dl (0.2)
[2019-12-31 05:56] LABS: Squamous Epithelial Cell,Urine 20-50 #/hpf (0-5); WBC,Urine 50-100 #/hpf (0-3)
[2019-12-31 06:03] LABS: Amphetamine/Metha Screen,Urine Negative ng/mL (<1000); Barbiturates Screen,Urine Negative ng/mL (<200); Benzodiazepines Screen,Urine Negative ng/mL (<200); Cannabinoid Screen,Urine Negative ng/mL (<50); Cocaine Screen,Urine Negative ng/mL (<300); Methadone Screen,Urine Negative ng/mL (<300); Opiate Screen,Urine Negative ng/mL (<300); Phencyclidine Screen,Urine Negative ng/mL (<25)
--- NOTE | 2019-12-31 08:08 | Progress Note ---
Labor Note - Subjective: Date: 12/31/19 Time: 07:25 regular contraction - Objective: NST:: Reactive Contractions:: every 2-3 minutes Cervical Dilation:: 2-3 Effacement:: 50% Station: -2 Membranes: artificially ruptured - Fetus: Monitoring?: Yes monitoring type:: Internal and External Comment:: I inserted an IUPC. - Assessment: Labor progressing?: Yes Cephalopelvic disproportion?: No Patient Problems: All Active Problems URI (upper respiratory infection) (Acute) Gestational diabetes (Chronic) False labor before 37 completed weeks of gestation (Acute) (Acute) - Plan: Anesthesia for epidural?: Yes Continue to labor down?: Yes Plan for ?: No Continue to monitor?: Yes Start pushing?: No
--- NOTE | 2019-12-31 08:10 | History & Physical Report ---
OB - H&P: HPI Antepartum - History of Present Illness Chief complaint: Poorly controlled gestational diabetes, labor History of present illness: She is a 29-year-old 3 para 2 at 38 weeks gestational age. She has been on metformin for her gestational diabetes. She is poorly controlled on this. Her sugars have been as high as 230. Since she is now 38 weeks we decided to induce her labor at term. - History of Present Criteria for establishing EDC:: LMP confirmed by 1st trimester US care: good care Ultrasounds: normal 1st trimester US, normal mid trimester US Obstetrical complications: gestational diabetes [facility] History I have reviewed the patient's past medical history: Yes *Have you ever received a pneumonia vaccine?: No *Have you received a flu vaccine this season?: No Other Surgeries: Yes: No Previous Surgery. No: Amputation: No Fractures: No - *Social History Smoking Status: Never smoker Alcohol Intake: never Substance Use Type: denies use *Occupational Status:: unemployed *Travel in the last 8 weeks: None Family Hx:: Asthma, Diabetes, Stroke, Cancer Para: 2 Review of Systems - Review of Systems Review of systems:: pertinent systems reviewed and negative unless documented below Meds Home Medications Medication Instructions Recorded Confirmed Type pedi multivit no.7-folic acid 100 100 mcg PO DAILY tab 06/04/19 12/31/19 History mcg chewable tablet metformin 500 mg tablet 500 mg PO DAILY 11/30/19 12/31/19 History RX: Promethazine HCl [Phenergan 25 mg PO Q6H 12/31/19 12/31/19 History 25mg tab] Allergies Allergy/AdvReac Type Severity Reaction Status Date / Time amoxicillin [From Augmentin] Allergy Mild reaction Verified 12/27/19 08:37 as a child (rash) clavulanic acid Allergy Mild reaction Verified 12/27/19 08:37 [From Augmentin] as a child (rash) sulfisoxazole Allergy Mild REACTION Verified 12/27/19 08:37 [From Pediazole] WHEN SHE WAS A CHILD (rash) azithromycin [From Zithromax] AdvReac Mild NA-NAUSEA/V Verified 12/27/19 08:37 OMITING erythromycin base AdvReac Mild NA-NAUSEA/V Verified 12/27/19 08:37 OMITING OB - H&P: Exam - Physical Exam Vital signs: Temp Pulse Resp BP Pulse Ox 98.2 F 89 16 111/70 98 12/31/19 07:12 12/31/19 07:12 12/31/19 07:12 12/31/19 07:12 12/31/19 07:12 - Constitutional no acute distress - Routine HEENT Exam Head: Present: normocephalic Eye: Present: EOMI, PERRL ENT: Present: mucous membranes moist - Routine Neck Exam Present: supple, full ROM - Routine Respiratory Exam Absent: accessory muscle use (good air entry bilaterally), respiratory distress, wheezes, crackles - Routine Cardiovascular Exam Present: RRR. Absent: murmur - Routine Abdominal Exam Present: soft, normoactive bowel sounds. Absent: tenderness, distended, guarding - Routine Rectal Exam Patient deferred: visual exam, digital exam - Routine Exam Patient deferred: external exam, groin exam, perineal exam - Routine Extremities Exam Present: full ROM. Absent: cyanosis, edema - Routine Skin Exam Present: intact. Absent: cyanosis - Routine Neurological Exam Present: alert, oriented X3 - Routine Psychiatric Exam Present: normal affect OB - Results - Labs Labs: Short CBC 12/31/19 Range/Units 05:40 WBC 11.2 H (4.8-10.8) K/mm3 Hgb 12.1 L (12.2-16.2) g/dL Hct 36.0 L (37.0-47.0) % Plt Count 242 (142-424) K/mm3 Urine 12/31/19 Range/Units 04:54 Urine Color Yellow (Yellow) Urine Appearance Cloudy (Clear) Urine pH 6.0 (5.0-8.5) Ur Specific [place] >= 1.030 (1.005-1.030) Urine Protein Negative (Negative) Urine Glucose (UA) Negative (Negative) OB - A/P Antepartum (1) Normal delivery at term Current visit: Yes Status: Acute (2) Gestational diabetes Current visit: No Status: Chronic - Additional Plan Planning to breastfeed?: Yes Plan: induction Additional Information:: She has gestational diabetes and is poorly controlled. She has been taking metformin. She is unable to take any more than 250 mg twice daily because it makes her severely nauseous. After having discussed the risk and benefits we elected to deliver her at 38 weeks. She has had contractions over the last couple of weeks.
--- NOTE | 2019-12-31 08:55 | Progress Note ---
[facility] Anesthesia Checklist - Patient Identification Patient Identification: Arm Band - Structural Data Admitted From: Inpatient Planned Operative Procedure/s: labor epidural Consent for Planned Operative Procedure(s) Verified: Yes Verified Documents: History and Physical - NPO Status Verified Time NPO: 00:00 - Additional verifications Anesthesia Reactions: No - Airway Assessment C-Spine Mobility Assessed: Yes TMJ Mobility Assessed: Yes Dentition: Good Dentition - Neurological Assessment Level of Consciousness: Awake, Alert - Anesthesia Plan Anesthesia Risk discussed: Yes Anesthesia Plan: Verified ASA Class: II Anesthesia Type: Epidural [facility] History I have reviewed the patient's past medical history: Yes *Have you ever received a pneumonia vaccine?: No *Have you received a flu vaccine this season?: No Anesthesia experience/problems:: nac Other Surgeries: Yes: No Previous Surgery. No: Amputation: No Fractures: No - *Social History Smoking Status: Never smoker Alcohol Intake: never Substance Use Type: denies use *Occupational Status:: unemployed *Travel in the last 8 weeks: None Family Hx:: Asthma, Diabetes, Stroke, Cancer Para: 2
--- NOTE | 2019-12-31 11:31 | Progress Note ---
Labor Note - Subjective: Date: 12/31/19 Time: 11:29 regular contraction - Objective: NST:: Reactive Contractions:: every 2-3 minutes Cervical Dilation:: 6-7 Effacement:: 90% Station: -1 Membranes: artificially ruptured - Fetus: Monitoring?: Yes monitoring type:: Internal Comment:: I applied a scalp electrode - Assessment: Labor progressing?: Yes Cephalopelvic disproportion?: No Patient Problems: All Active Problems URI (upper respiratory infection) (Acute) Normal delivery at term (Acute) Gestational diabetes (Chronic) False labor before 37 completed weeks of gestation (Acute) (Acute) - Plan: Anesthesia for epidural?: Yes Continue to labor down?: Yes Plan for ?: No Continue to monitor?: Yes Start pushing?: No Comment:: I applied a scalp electrode. She is now 6 7 cm. Nonstress test is reactive. She is simeon every 2 to 3 minutes. She does have some bloody show. We will continue to monitor closely and expect a vaginal delivery.
--- NOTE | 2019-12-31 13:45 | Progress Note ---
Labor Note - Subjective: Date: 12/31/19 Time: 13:44 regular contraction - Objective: NST:: Reactive Contractions:: every 2-3 minutes Cervical Dilation:: 9-10 Effacement:: 100% Station: +1 Membranes: artificially ruptured - Fetus: Monitoring?: Yes monitoring type:: Internal - Assessment: Labor progressing?: Yes Cephalopelvic disproportion?: No Patient Problems: All Active Problems URI (upper respiratory infection) (Acute) Normal delivery at term (Acute) Gestational diabetes (Chronic) False labor before 37 completed weeks of gestation (Acute) (Acute) - Plan: Anesthesia for epidural?: Yes Continue to labor down?: Yes Plan for ?: No Continue to monitor?: Yes Start pushing?: Yes Comment:: She is fully dilated so we will go ahead and start pushing.
--- NOTE | 2019-12-31 14:15 | Procedure Note ---
- Delivery Note Delivery Date:: 12/31/19 Delivery Time:: 14:01 Anesthesia Type: Epidural Was labor medically induced?: Yes Induction method: per pitocin protocol Gestational age (weeks): 38 Infant delivered prior to 39 weeks?: Yes Justification for early elective delivery:: Gestational Diabetes Gender: Male at 1 minute: 8 at 5 minutes: 9 Delivery Procedure:: She is a 29-year-old 3 para 2 at 38 weeks gestational age. She has had gestational diabetes with worsening sugar levels. As result that she was offered induction of labor at 38 weeks. She was started on IV oxytocin and had her membranes ruptured. Under labor epidural she progressed to full dilation and delivered with the assistance of outlet forceps a liveborn male child at 2:01 PM in the afternoon of December 31, 2019 She was having some prolonged decelerations and there was very little descent of the head so I elected to place forceps in the direct OP position. Using one gentle pull I was able to easily deliver the head over an intact perineum. There was a loose nuchal cord that was easily reduced followed by the rest the infant's body atraumatically. The baby was vigorous and cried spontaneously. We bulb suction the oropharynx and nasopharynx. The cord was then clamped and cut and the infant was handed off to the nurses who assigned Apgars of 8 at 1 minute and 9 at 5 minutes. We then obtained cord blood as well as cord pH. Using gentle traction on the cord and countertraction on the fundus I was able to easily deliver the placenta intact at 1404 p.m. Did have normal three-vessel cord. She had a small first-degree vaginal laceration was repaired with interrupted 3-0 Vicryl Rapide suture. She had a small right labial tear that was repaired with interrupted 3-0 Vicryl deep suture. She has O+ blood, she is rubella nonimmune and was group B streptococcus negative. Her beater lead is Dr. Sanches. Estimated blood loss was approximately 400 cc. Laceration:: vaginal, labial Placental Delivery Description: Spontaneous
[2020-01-01 07:00] LABS: Hematocrit 29.5 % (37.0-47.0); Hemoglobin 9.7 g/dL (12.2-16.2)
--- NOTE | 2020-01-01 08:22 | Progress Note ---
Internal Medicine - PN: Subj *Date: 01/01/20 *Time: 08:21 Interval history: She is doing well this morning. She does complain of a sore tailbone. We will add Toradol to her pain regimen as well as Percocet. Exam Vital signs and Labs for Last 24 Hours: Temp Pulse Resp BP Pulse Ox 98.4 F 92 H 18 120/64 99 12/31/19 15:33 12/31/19 15:33 12/31/19 15:33 12/31/19 15:33 12/31/19 15:33 Laboratory Results - last 24 hr 12/31/19 14:09: Cord ABG pH 7.14 L* 12/31/19 19:16: POC Glucose 139 H 01/01/20 06:37: Hgb 9.7 L, Hct 29.5 L I & O for Last 24 hours: Intake & Output 12/29/19 12/30/19 12/31/19 01/01/20 11:59 11:59 11:59 11:59 Weight 188 lb Microbiology Reports for the Last 24 Hours: Microbiology 12/31/19 04:54 Urine,Catheterized Urine Culture - Preliminary NO GROWTH AFTER 24 HOURS - Constitutional no acute distress - *Routine HEENT Exam Head: Present: normocephalic Eye: Present: EOMI, PERRL ENT: Present: mucous membranes moist Assessment and Plan (1) Normal delivery at term Current visit: Yes Status: Acute Category: Medical Code(s): O80 - Encounter for full-term uncomplicated delivery (2) Gestational diabetes Current visit: No Status: Chronic Qualifiers: Gestational diabetes mellitus control: oral hypoglycemic-controlled Trimester: third trimester Qualified Code(s): O24.415 - Gestational diabetes mellitus in , controlled by oral hypoglycemic drugs Category: Medical Code(s): O24.419 - Gestational diabetes mellitus in , unspecified control - Assessment and plan all Dx Assessment and Plan for all problems:: She is doing well this morning. Her lochia is normal. She is bottlefeeding. She does complain of some tailbone pain. She has had a cracked tailbone in the past. We will add an anti-inflammatory and she will take Percocet more regularly.
[2020-01-02 09:15] VITALS: BP 119/69
--- NOTE | 2020-01-02 10:05 | Discharge Summary ---
General - General Admission date:: 12/31/19 Discharge date: 01/02/20 HPI HPI: She is a 29-year-old 3 now para 3 who was 38 and 1 weeks gestational age. She has had gestational diabetes with worsening sugar values. As result of that we have elected to induce her labor at term. Hospital Course Hospital Course: On December 31, 2019 she was started on IV oxytocin. Under labor epidural progressed to full dilation and delivered with the assistance of outlet forceps in the direct OP position a liveborn male child at 2:01 PM in the afternoon. The baby weighed 6 pounds 0 ounces and had Apgars of 8 at 1 minute and 9 at 5 minutes. He was 18-1/2 inches long. She has done well and has remained afebrile with her hospitalization. She is eating and drinking and ambulating. She is bottlefeeding. She does complain of some tailbone pain and I suspect her tailbone was bruised since the baby was in the direct OP position. She has O Rh+ blood, she is rubella nonimmune and will receive MMR. Her group B streptococcus status is negative. Her animal shelter clerk Dr. Sanches. She is discharged home to follow-up with me in approximately 2 weeks time. She was given the usual instructions with respect to limiting her activity, driving and sexual activity. She was given a prescription for Percocet 5/325 number 20 tablets as well as Toradol 10 mg number 20 tablets. Her condition on discharge is stable and improved. Rhogam Administration: Not Indicated Objective Vital signs: Temp Pulse Resp BP Pulse Ox 98.1 F 101 H 17 119/69 99 01/02/20 08:00 01/02/20 08:00 01/02/20 08:00 01/02/20 08:00 01/02/20 08:00 no acute distress - *Routine HEENT Exam Head: Present: normocephalic Eye: Present: EOMI, PERRL ENT: Present: mucous membranes moist Results Labs on day of discharge: Preliminary micro results at discharge 12/31/19 04:54 Urine Culture - Preliminary Urine,Catheterized DS: Diagnosis - Discharge Diagnosis (1) Normal delivery at term Status: Acute (2) Gestational diabetes Status: Chronic Discharge Plan - Patient Discharge Instructions ACTIVITY: No heavy lifting DIET: continue same diet Additional Instructions: FOLLOW-UP WITH DR. MEJIA ON 01/14/2020 AT 10:45 No heavy lifting, no strenuous activity, nothing in the vagina for 6 weeks. Patient Instructions: Depression, Labor and Delivery, Vaginal , Hemorrhage, [facility] Post Discharge Instructions - Follow up Plan Follow up with: Randolph Mejia MD [Staff Physician] - Disposition: Home, Self-Correction Medications: Home Medications Medication Instructions Recorded Confirmed Type pedi multivit no.7-folic acid 100 100 mcg PO DAILY tab 06/04/19 12/31/19 History mcg chewable tablet metformin 500 mg tablet 500 mg PO DAILY 11/30/19 12/31/19 History Promethazine HCl [Phenergan 25mg 25 mg PO Q6H 12/31/19 12/31/19 History tab] Ketorolac Tromethamine [Toradol 10 mg PO Q6HP PRN #20 tab 01/02/20 Rx 10mg tablet] Oxycodone HCl/Acetaminophen 1 tab PO Q4H PRN #20 tablet 01/02/20 Rx [Percocet 5/325mg tablet] Prescriptions/Medication Reconciliation: New Oxycodone HCl/Acetaminophen [Percocet 5/325mg tablet] 1 tab PO Q4H PRN #20 tablet PRN Reason: Severe Pain Ketorolac Tromethamine [Toradol 10mg tablet] 10 mg PO Q6HP PRN #20 tab PRN Reason: Mild To Moderate Pain Discontinued metformin 500 mg tablet 500 mg PO DAILY No Action pedi multivit no.7-folic acid 100 mcg chewable tablet 100 mcg PO DAILY tab Promethazine HCl [Phenergan 25mg tab] 25 mg PO Q6H - Problem Reconciliation Problems Reviewed?: Yes
== END 2020-01-02 11:00 | disposition home or self-care (01) | DRG 807 ==
LOC: OB 04:39
PROVIDERS: ADMIT Nurse Practitioner Obstetrics & Gynecology; ATTEND Nurse Practitioner Obstetrics & Gynecology
CPT/HCPCS: 36415; 59025; 80305; 81001; 82800; 82962; 84112; 85014; 85018; 85025; 86850; 87086; 87088; 87186; 90707; 94761; C1758; G0463; J0595; J2405

== ENCOUNTER → 2020-05-06 09:29 | Outpatient (CLI) | payer OTHER, SELFPAY ==
[2020-05-06 10:04] LABS: Basophils % 0.5 % (0.1-2.0); Eosinophils # 0.1 K/mm3 (0.0-0.4); Eosinophils % 1.5 % (0.1-12.0); Hematocrit 38.8 % (37.0-47.0); Hemoglobin 13.6 g/dL (12.2-16.2); Lymphocytes # 2.3 K/mm3 (0.7-4.5); Lymphocytes % 28.5 % (10-50); Mean Corpuscular HGB Conc 35.1 g/dL (31.8-35.4); Mean Corpuscular Hemoglobin 30.8 pg (27.0-31.2); Mean Corpuscular Volume 87.8 fl (81-99); Mean Platelet Volume 7.8 fl (7.4-10.4); Monocytes # 0.3 K/mm3 (0.1-1.0); Monocytes % 3.1 % (1.7-9.3); Neutrophils # 5.4 K/mm3 (1.8-7.8); Neutrophils % 66.4 % (37.0-80.0); Platelet Count 271 K/mm3 (142-424); Red Blood Count 4.42 M/mm3 (4.20-5.40); Red Cell Distribution Width 14.7 % (11.5-17.5); White Blood Count 8.2 K/mm3 (4.8-10.8)
[2020-05-06 11:06] LABS: Chloride 101 mmol/L (98-107); Potassium 4.5 mmoL/L (3.5-5.1); Sodium 137 mmol/L (136-145)
[2020-05-06 11:09] LABS: Anion Gap 18.5 mEq/L (5-15); Blood Urea Nitrogen 14 mg/dl (7-17); Calcium 9.3 mg/dl (8.4-10.2); Carbon Dioxide 22 mmol/L (22.0-30.0); Estimated Glomerular Filt Rate 100 ml/min (>60); GFR (African American) 121 ML/MIN (>60); Glucose 191 mg/dl (74-100)
[2020-05-06 11:25] LABS: Coronavirus 19 IgG Antibody Negative (Negative); Coronavirus 19 IgM Antibody Negative (Negative)
[2020-05-06 11:50] LABS: HCG Qualitative, Serum Negative (Negative)
== END ==
PROVIDERS: Visit Provider Nurse Practitioner Obstetrics & Gynecology
DX: Z01.812 Encounter for preprocedural laboratory examination (principal); Z01.84 Encounter for antibody response examination
CPT/HCPCS: 36415; 80048; 84703; 85025; 86328

== ENCOUNTER 2020-05-07 06:08 | Day surgery (SDC) | payer OTHER, SELFPAY ==
[2020-05-05 13:41] VITALS: BMI 32.9
[2020-05-07] VITALS (13 sets, daily range): BP systolic 117–144; BP diastolic 58–95; PULSE 73–96; RESP 12–24; TEMP 36.2–36.6; O2SAT 93–98
--- NOTE | 2020-05-07 06:48 | P.PN_ITS ---
[facility] Anesthesia Checklist - Structural Data Admitted From: Home Planned Operative Procedure/s: lap salpingectomy Consent for Planned Operative Procedure(s) Verified: Yes - Additional verifications Anesthesia Reactions: No Hx Blood Transfusions: No Blood Transfusion Reaction: No - Airway Assessment C-Spine Mobility Assessed: Yes TMJ Mobility Assessed: Yes Dentition: Good Dentition - Neurological Assessment Level of Consciousness: Awake, Alert, Appropriate - Anesthesia Plan Anesthesia Risk discussed: Yes Anesthesia Plan: Verified ASA Class: II Anesthesia Type: General [facility] History I have reviewed the patient's past medical history: Yes Medical History: Denies:: Cancer, Diabetes Mellitus Type 1, Diabetes Mellitus Type 2, Internal Pacemaker, MRSA, Seizures *Have you ever received a pneumonia vaccine?: No *Have you received a flu vaccine this season?: No Other Medical History: Denies: Blood Transfusion Reaction Anesthesia experience/problems:: none Laterality Cases: Bilateral: Tonsillectomy Other Surgeries: Yes: No Previous Surgery. No: , Pacemaker Amputation: No Fractures: No - *Social History Educational Level: Attended College Smoking Status: Never smoker Alcohol Intake: never Alcohol Intake Frequency:: holidays/special occasions only Substance Use Type: denies use *Occupational Status:: unemployed Housing: house Household Members: significant other, family *Travel in the last 8 weeks: None Family Hx:: Asthma, Diabetes, Stroke, Cancer
--- NOTE | 2020-05-07 08:04 | HMH.OPNOTE ---
Date of procedure: 05/07/20 Pre-op Diagnosis:: Desire for sterilization Post-op Diagnosis:: Desire for sterilization Procedure performed:: Laparoscopic bilateral salpingectomy Surgeon:: Randolph Mejia MD [employer]:: [place] Zambrano Anesthesia: GETA Estimated blood loss (mL): 10 Clinical Note:: She is a 29-year-old 3 para 3 who expressed desire for sterilization. The risks and benefits as well as the irreversibility of bilateral salpingectomy were discussed with patient prior to surgery. Operative findings:: She had a normal-appearing bulky anteverted uterus. The tubes and ovaries appeared normal. The appendix was seen and appeared normal. The pelvis appeared completely normal. Operative note:: She was taken to the operating room where general anesthesia was found be adequate. She was prepped and draped in normal sterile fashion in the semilithotomy position. A weighted speculum was placed in the vagina and the anterior lip of the cervix was grasped with a tenaculum. I then inserted a Geri uterine manipulator into the cervical os. The balloon was then insufflated. I changed gloves and injected 10 cc of 0.5% ropivacaine around her umbilicus and made a small incision within the umbilicus. I inserted a Veress needle into the abdominal cavity. The peritoneal cavity was then insufflated with carbon dioxide gas to a pressure of 20 mmHg. I then inserted a 5 millimeter trocar under direct vision. I injected through and through the pubic hairline, made a small incision here and inserted an 8 mm trocar under direct vision. I identified the inferior epigastric artery on the left side, went lateral to these and injected through and through. I then placed a 5 mm trocar here under direct vision. The pelvis and upper abdomen were then inspected and the findings were as previously dictated. I grasped the right tube at the cornua and using harmonic scalpel on coagulation mode I cut through the tube. I then grasped the distal tube and using harmonic scalpel cut along the mesosalpinx. The tube was removed through 8 mm trocar site. This was similarly performed on the patient's left side. I then injected 30 cc of 0.5% ropivacaine into the pelvis. After assuring hemostasis the gas was let out of the abdomen and hemostasis was once again assured. The abdomen was then reinsufflated. The secondary trochars were removed under direct vision. The gas was let out her abdomen. The primary trocar was then removed. The 8 mm trocar site was closed deeply with 2-0 Vicryl suture followed by subcuticular 4-0 Monocryl suture. The 5 mm trocar sites were closed with subcuticular 4-0 Monocryl. Sterile dressings were applied. The patient tolerated the procedure well and was taken to the recovery room in excellent condition. All sponge instrument and needle counts were correct. The estimated blood loss was less than 10 cc. Condition: stable Disposition: PACU Specimens:: Bilateral fallopian tubes Complications:: None
--- NOTE | 2020-05-07 08:09 | HMH.ANESI ---
[facility] Anesthesia Record Part I Intake, IV Amount: 800 Estimated blood loss (mL): 10 Urine output (mL): 50 Blood Products used (#): none Blood Pressure: 138/93 SaO2: 96 Pulse Rate: 96 Respiratory Rate: 12 Temperature: 97.7 F Patient is:: Awake, Drowsy, Nasal O2, Stable Stable to PACU at:: 08:06
--- NOTE | 2020-05-07 09:05 | SUR.PHASEII ---
Pt C/O nausea. Zofran 4 mg IV given per Dr. Oconnell standing order.
--- NOTE | 2020-05-07 13:11 | P.PN_ITS ---
[facility] Anesthesia Record Part II Discharge Time: 08:48 Destination: Surgical Day Care (OP Surgery) PACU nurse assessment reviewed?: Yes Patient Condition:: Good Anesthesia Complications:: None Swallowing reflex intact?: Yes Cyanosis?: No Blood Pressure: 144/65 Pulse Rate: 76 Temperature: 97.5 F Mental Status: Alert & Oriented Pain level:: 0 Nausea and/or vomitting:: None Intake, IV Amount: 0
== END 2020-05-07 09:45 | disposition home or self-care (01) ==
PROVIDERS: PCP Nurse Practitioner Family; Visit Provider Nurse Practitioner Obstetrics & Gynecology
PROC: (CPT 58661; principal; 2020-05-07 07:30)
DX: Z30.2 Encounter for sterilization (principal); Z82.5 Family history of asthma and other chronic lower respiratory diseases; Z83.3 Family history of diabetes mellitus; Z82.3 Family history of stroke; Z80.9 Family history of malignant neoplasm, unspecified; Z88.1 Allergy status to other antibiotic agents; Z79.899 Other long term (current) drug therapy
CPT/HCPCS: 58661; 96374; J2405; J2710

== ENCOUNTER → 2020-11-28 13:35 | Outpatient (CLI) | payer OTHER, SELFPAY ==
--- NOTE | 2020-11-28 13:35 | US_ITS ---
PROCEDURE: US TRANSVAGINAL CLINICAL INDICATION: pelvic pain Excessive cycle, excessive bleeding COMPARISON: US OBTV US OB transvaginal from 06/06/2019 FINDINGS: The uterus is 8 x 4 x 4 cm with a combined endometrial thickness of mm. No uterine mass is evident. The left ovary is 3.2 x 2.8 cm in the right ovary is 3.8 x 1.9 cm. No ovarian suspicious lesions are evident. There are small bilateral ovarian follicles. No cul-de-sac fluid is evident. IMPRESSION: Unremarkable pelvic ultrasound Dictated by: Gilbert Del Cid MD 11/28/2020 14:42 Gilbert Del Cid MD in OV 11/28/2020 14:42
== END ==
PROVIDERS: PCP Nurse Practitioner Family; Visit Provider Nurse Practitioner Obstetrics & Gynecology
DX: R10.2 Pelvic and perineal pain (principal)
CPT/HCPCS: 76830

== ENCOUNTER → 2021-01-15 10:21 | Outpatient (CLI) | payer OTHER, SELFPAY ==
[2021-01-15 10:57] LABS: Basophils % 0.4 % (0.1-2.0); Eosinophils # 0.1 K/mm3 (0.0-0.4); Eosinophils % 1.5 % (0.1-12.0); Hematocrit 39.7 % (37.0-47.0); Hemoglobin 13.3 g/dL (12.2-16.2); Lymphocytes # 1.9 K/mm3 (0.7-4.5); Lymphocytes % 23.6 % (10-50); Mean Corpuscular HGB Conc 33.4 g/dL (31.8-35.4); Mean Corpuscular Hemoglobin 29.6 pg (27.0-31.2); Mean Corpuscular Volume 88.8 fl (81-99); Mean Platelet Volume 7.4 fl (7.4-10.4); Monocytes # 0.3 K/mm3 (0.1-1.0); Monocytes % 3.8 % (1.7-9.3); Neutrophils # 5.7 K/mm3 (1.8-7.8); Neutrophils % 70.7 % (37.0-80.0); Platelet Count 254 K/mm3 (142-424); Red Blood Count 4.47 M/mm3 (4.20-5.40); White Blood Count 8.1 K/mm3 (4.8-10.8)
[2021-01-15 12:28] LABS: Anion Gap 18.1 mEq/L (5-15); Blood Urea Nitrogen 11 mg/dl (7-17); Calcium 9.6 mg/dl (8.4-10.2); Carbon Dioxide 21 mmol/L (22.0-30.0); Chloride 104 mmol/L (98-107); Estimated Glomerular Filt Rate 118 ml/min (>60); GFR (African American) 143 ML/MIN (>60); Glucose 149 mg/dl (74-100); Potassium 4.1 mmoL/L (3.5-5.1); Sodium 139 mmol/L (136-145)
[2021-01-15 13:51] LABS: HCG Qualitative, Serum Negative (Negative)
[2021-01-15 14:12] LABS: Coronavirus 19 IgG Antibody Negative (Negative); Coronavirus 19 IgM Antibody Negative (Negative)
== END ==
PROVIDERS: Visit Provider Nurse Practitioner Obstetrics & Gynecology
DX: Z01.818 Encounter for other preprocedural examination (principal); Z20.822 Contact with and (suspected) exposure to COVID-19; N92.0 Excessive and frequent menstruation with regular cycle
CPT/HCPCS: 36415; 80048; 84703; 85025; 86328

== ENCOUNTER 2021-01-16 07:05 | Day surgery (SDC) | payer OTHER, SELFPAY ==
[2021-01-14 09:18] VITALS: BMI 32.5
[2021-01-16] VITALS (14 sets, daily range): BP systolic 114–148; BP diastolic 72–93; PULSE 69–95; RESP 12–20; TEMP 36.1–43; O2SAT 94–100
--- NOTE | 2021-01-16 07:48 | HMH.ANESCL ---
[facility] Anesthesia Checklist - Structural Data Admitted From: Home Planned Operative Procedure/s: d/c hyst Consent for Planned Operative Procedure(s) Verified: Yes - Additional verifications Anesthesia Reactions: No Hx Blood Transfusions: No Blood Transfusion Reaction: No - Airway Assessment C-Spine Mobility Assessed: Yes TMJ Mobility Assessed: Yes Dentition: Good Dentition - Neurological Assessment Level of Consciousness: Awake, Alert, Appropriate - Anesthesia Plan Anesthesia Risk discussed: Yes Anesthesia Plan: Verified ASA Class: II Anesthesia Type: General [facility] History I have reviewed the patient's past medical history: Yes Medical History: Denies:: Cancer, Diabetes Mellitus Type 1, Diabetes Mellitus Type 2, Internal Pacemaker, MRSA, Seizures *Have you ever received a pneumonia vaccine?: No *Have you received a flu vaccine this season?: No Other Medical History: Denies: Blood Transfusion Reaction Anesthesia experience/problems:: none Laterality Cases: Bilateral: Tonsillectomy Other Surgeries: Yes: No Previous Surgery, Other (Bilateral Salpingectomy April 2020). No: , Pacemaker Amputation: No Fractures: Yes (lt thumb, rt ankle, rt arm/wrist, fingers on both hands) - *Social History Last grade of school completed: Some college Smoking Status: Never smoker Alcohol Intake: never Alcohol Intake Frequency:: holidays/special occasions only Substance Use Type: denies use *Occupational Status:: unemployed Housing: house Household Members: family *Travel in the last 8 weeks: None Family Hx:: Cancer, Coronary Artery Disease, Hyperlipidemia, Hypertension
--- NOTE | 2021-01-16 09:39 | HMH.ANESI ---
[facility] Anesthesia Record Part I Intake, IV Amount: 800 Estimated blood loss (mL): 50 Urine output (mL): 0 Blood Pressure: 142/89 SaO2: 96 Pulse Rate: 88 Respiratory Rate: 12 Temperature: 98.1 F Patient is:: Awake, Stable Stable to PACU at:: 09:35
--- NOTE | 2021-01-16 09:46 | P.OP_ITS ---
Date of procedure: 01/16/21 Pre-op Diagnosis:: Menorrhagia, dysmenorrhea Post-op Diagnosis:: Menorrhagia, dysmenorrhea Procedure performed:: Hysteroscopy, dilation and curettage, NovaSure ablation Surgeon:: Randolph Mejia MD [employer] DRIVER:: Ameya Varma Anesthesia: LMA Estimated blood loss (mL): 100 Clinical Note:: She is a 30-year-old lady who complains of extremely heavy painful periods. She has tried various forms of control that did not help. Ultrasound was normal as well as an endometrial biopsy. After having discussed the risks and benefits we elected to perform a hysteroscopy, D&C and NovaSure ablation. Operative findings:: She had a normal-appearing anteverted uterus. The endometrium appeared normal but lush. The uterus sounded to 8 cm. The endometrial cavity was 5.5 cm long and 3.5 cm wide. Operative note:: She was taken to the operating room where LMA anesthesia was found be adequate. She was prepped and draped in the normal sterile fashion in the lithotomy position. A weighted speculum was placed in the vagina and the anterior lip of the cervix was grasped with a tenaculum. The cervix was then dilated to approximately 6 mm. I then inserted a hysteroscope into the uterine cavity and the findings were as previously dictated. I then performed a gentle curettage with a medium curette. I then sounded the uterus and determine the length of the uterus. This was placed into the NovaSure device. I then inserted the NovaSure device and determine the width of the endometrial cavity. The cavity was found to be 5.5 cm long and 3.5 cm wide. I then ran the device through its program. I further inspected the endometrial cavity and was found to be completely charr ed. I then injected 30 cc of 0.5% ropivacaine at the 3:00, 5:00, 7:00, and 9:00 positions of the cervix. She tolerated procedure well and was taken to the recovery room in excellent condition. All sponge and instrument counts were correct. The estimated blood loss was less than 100 cc. Condition: stable Disposition: PACU Specimens:: Endometrial curettings Complications:: None
--- NOTE | 2021-01-16 10:47 | HMH.ANESII ---
[facility] Anesthesia Record Part II Discharge Time: 10:09 Destination: Surgical Day Care (OP Surgery) PACU nurse assessment reviewed?: Yes Patient Condition:: Good Anesthesia Complications:: None Swallowing reflex intact?: Yes Cyanosis?: No Blood Pressure: 128/92 Pulse Rate: 73 Temperature: 98 F Mental Status: Alert & Oriented Pain level:: 0 Nausea and/or vomitting:: None Intake, IV Amount: 0
== END 2021-01-16 11:10 | disposition home or self-care (01) ==
PROVIDERS: Visit Provider Nurse Practitioner Obstetrics & Gynecology
PROC: 0U5B8ZZ Destruction of Endometrium, Via Natural or Artificial Opening Endoscopic (ICD-10-PCS; CPT 58563; principal; 2021-01-16 08:45)
DX: N94.6 Dysmenorrhea, unspecified (principal); N92.1 Excessive and frequent menstruation with irregular cycle; Z88.1 Allergy status to other antibiotic agents
CPT/HCPCS: 58563; 96374; J2405

== ENCOUNTER 2021-11-10 16:58 | Emergency (ER) | payer OTHER, SELFPAY ==
[2021-11-10 18:48] VITALS: BP 143/99; PULSE 106; RESP 16; TEMP 37; O2SAT 98; BMI 31.4
[2021-11-10 18:57] LABS: UTC Influenza A Antigen Negative (Negative); UTC Influenza B Antigen Negative (Negative)
--- NOTE | 2021-11-10 19:13 | HMH.EDUTC ---
[facility] [place] Disposition Clinical Impression: Bronchitis, Exposure to COVID-19 virus, Yeast infection Pharyngitis Qualifiers: Pharyngitis/tonsillitis etiology: unspecified etiology Qualified Code(s): J02.9 - Acute pharyngitis, unspecified Disposition: Home, Self-Care Condition on Discharge: Good Instructions: DI for Pharyngitis/Tonsillopharyngitis -- Adult, DI for Vaginal Yeast Infection, DI for Acute Bronchitis, DI for COVID-19 (Suspected or Confirmed ), Preventing the Spread of Coronavirus Discharge Instructions Additional Instructions: Drink plenty of fluids. Take tylenol or ibuprofen for pain or fever. Take the medications as directed. Follow up with your regular doctor. GO TO THE ER FOR ANY WORSENING SYMPTOMS Quarantine until you know the results of your covid-19 test. If it is positive, the health department should call you and give you further instructions about your length of Quarantine and other things. Notify your school or workplace of your results and follow their instructions regarding return to work/school. Take the diflucan as directed. There is a refill on it because the antibiotics might cause your yeast infection symtoms to return or worsen. Prescriptions: Promethazine/Dextromethorphan [Promethazine-Dm Syrup] 5 ml PO Q6HP PRN #240 ml PRN Reason: Cough Transmission Status: Sent to [facility] Fluconazole [Diflucan 100mg tablet] 100 mg PO DAILY 3 Days #3 tab Transmission Status: Pending to [employer] [facility] [employer] methylPREDNISolone [Medrol] 4 mg PO DIRECTED 6 Days #21 packet Transmission Status: Sent to [facility] Nystatin [Nystatin Cr 100,000 Units/GM 30GM] 1 applicatio TP BID 14 Days #1 gm Transmission Status: Pending to [facility] Cefdinir [Omnicef 300mg Capsule] 300 mg PO BID #20 cap Transmission Status: Pending to [facility] Referrals: Emelina Al [Primary Care Provider] - Forms: Work/School Release Time of Disposition: 19:48 Medical Decision Making - Medical Records Medical records reviewed: No: I reviewed the patient's medical records. - Christiano Inquiry Pt receiving controlled substance: No Christiano was queried for this patient: No Vital Signs: 11/10/21 18:48 Temperature 98.6 F Temperature Source Oral Pulse Rate [Left] 106 H Respiratory Rate 16 Blood Pressure [Right Arm] 143/99 H Blood Pressure Mean [Right Arm] 113 02 Sat by Pulse Oximetry 98 - Lab Data Lab results reviewed: Yes: I reviewed the patient's lab results. Lab Results 11/10/21 18:52: Influenza Type A Ag Negative, Influenza Type B Ag Negative Orders (Tests/Meds): ORDERS Category Date Time Status Full Resp Panel w/COVID ([facility]) Routine Lab 11/10/21 19:37 Ordered [facility] HPI - General Stated complaint: sore throat weakness cough aches congestion diarrh Time Seen by Provider: 11/10/21 19:13 Mode of Arrival: Ambulatory Source of Information: Patient Limitations: No Limitations Description of Symptoms (Recalled from Triage Doc. by RN): pt c/o lung tightness with coughing, weakness and a VIRGEN. exposed to flu 11/06. pt also states she has a yeast infection. she has treated it since last with no relief. pt states that she is having genitourinary bleeding and swelling/tenderness of the vagina. HEENT Symptoms (Recalled from RN notes): Yes Resp Symptoms (Recalled from RN notes): Yes Skin Symptoms (Recalled from RN notes): No MS Symptoms (Recalled from RN notes): No Functional Status (Recalled from RN notes): wnl - History of Present Illness Provider Complaint: She states that for the past 3 days she has been having a sore throat,chills, fever, and a cough. She works at [employer]. She has been vaccinated against covid-19. - Related Data Previous Rx's Medication Instructions Recorded clindamycin HCl 300 mg capsule 300 mg PO BID 10 Days #20 cap 06/11/21 fexofenadine 180 mg tablet 180 mg PO DAILY #30 tab 06/11/21 methylprednisolone 4 mg tablets in See Rx
[2021-11-10 19:54] VITALS: BP 143/99; PULSE 106; RESP 16; TEMP 37
[2021-11-10 20:02] LABS: Adenovirus,PCR Not Detected (NotDetected); Bordetella Pertussis Not Detected (NotDetected); Chlamydophila Pneumoniae, PCR Not Detected (NotDetected); Coronavirus 19, PCR Not Detected (NotDetected); Coronavirus 229E Not Detected (NotDetected); Coronavirus NL63 Not Detected (NotDetected); Coronavirus OC43 Not Detected (NotDetected); Coronovirus HKU1,PCR Not Detected (NotDetected); Human Metapneumovirus Not Detected (NotDetected); Influenza A, PCR Not Detected (NotDetected); Influenza AH1, 2009 Not Detected (NotDetected); Influenza AH1, PCR Not Detected (NotDetected); Influenza AH3,PCR Not Detected (NotDetected); Influenza B, PCR Not Detected (NotDetected); Mycoplasma Pneumoniae, PCR Not Detected (NotDetected); Parainfluenza 1, PCR Not Detected (NotDetected); Parainfluenza 2, PCR Not Detected (NotDetected); Parainfluenza 3, PCR Not Detected (NotDetected); Parainfluenza 4, PCR Not Detected (NotDetected); Respiratory Syncytial Virus Not Detected (NotDetected)
[2021-11-11 00:01] LABS: Rhinovirus/Enterovirus Detected (NotDetected)
== END 2021-11-10 19:55 | disposition home or self-care (01) ==
PROVIDERS: Emergency Provider Nurse Practitioner Family; PCP Nurse Practitioner Family
DX: J20.9 Acute bronchitis, unspecified (principal); Z20.822 Contact with and (suspected) exposure to COVID-19
CPT/HCPCS: 87581; 87632; 87798; 87804; 99203; C9803; G0463; U0003; U0005

== ENCOUNTER 2021-11-26 12:11 | Emergency (ER) | payer OTHER, SELFPAY ==
[2021-11-26 13:20] VITALS: BP 128/86; PULSE 121; RESP 19; TEMP 38; O2SAT 96; BMI 29.5
[2021-11-26 13:49] LABS: UTC Strep Screen (Rapid) Negative (Negative)
[2021-11-26 13:50] LABS: UTC Influenza A Antigen Negative (Negative); UTC Influenza B Antigen Negative (Negative)
--- NOTE | 2021-11-26 14:12 | HMH.EDUTC ---
[facility] [place] [facility] [place] Clinical Impression: Exposure to COVID-19 virus, Viral syndrome Disposition: Home, Self-Care Condition on Discharge: Good Instructions: DI for Viral Syndrome, Ondansetron Additional Instructions: *Monitor Temp, Over the counter Motrin or Tylenol as directed/as needed Tylenol every 4 hours and Motrin every 6 hours (as long as your family doctor has told you that you can take it) for fever or pain. and straight to ER if unable to lower temp less than 101.0 after medication given *Warm salt water gargles may help to soothe the throat *Throat Lozenges *Warm fluids like tea with honey may help to soothe the throat *Sleep elevated *Humidifier/Vaporizer Follow up IMMEDIATELY for new or worsening symptoms or no Noticeable improvement over the next 48-72 hours. 911 for difficulty breathing or swallowing You were tested for today for COVID19 your test result should be back in the next 24-48 hours, you may check your results on the [facility] if you have trouble logging on you can call support or you will get a call if your results are Positive You was given a handout with instructions for Self Quarantine and Self isolation for while you wait on test results and what to do if they are positive If you are positive the Health Dept will be contacting you also Make sure to take your Vitamins Vit. C Vit D and Zinc if you can take them Prescriptions: Ondansetron [Zofran 4mg ODT] 4 mg PO TIDP PRN #10 tab PRN Reason: Vomiting Transmission Status: Received by [facility] Referrals: Maria Esther Pierce APRN [Primary Care Provider] - As needed Forms: Work/School Release Time of Disposition: 14:18 Medical Decision Making - Christiano Inquiry Pt receiving controlled substance: No Christiano was queried for this patient: No Vital Signs: 11/26/21 13:20 11/26/21 14:24 Temperature 100.4 F H 100.4 F H Temperature Source Oral Pulse Rate 100 H Pulse Rate [Right Brachial] 121 H Respiratory Rate 19 19 Blood Pressure 128/86 Blood Pressure [Right Arm] 128/86 Blood Pressure Mean [Right Arm] 100 Blood Pressure Source [Right Arm] Automatic Cuff Blood Pressure Position [Right Arm] Sitting 02 Sat by Pulse Oximetry 96 Oxygen Delivery Method Room Air - Lab Data Lab results reviewed: Yes: I reviewed the patient's lab results. Lab Results 11/26/21 13:18: Influenza Type A Ag Negative, Influenza Type B Ag Negative 11/26/21 13:18: Strep Scn Rapid Clinic Negative Orders (Tests/Meds): ORDERS Category Date Time Status Covid-19 Nasal PCR ([facility]) Routine Lab 11/26/21 13:10 Received Strep Screen Confirmation Stat Micro 11/26/21 13:18 Received [facility] UTC HPI - General Stated complaint: fever/chills, sore throat, cough, h/a, congestion Time Seen by Provider: 11/26/21 14:12 Mode of Arrival: Ambulatory Source of Information: Patient Limitations: No Limitations Description of Symptoms (Recalled from Triage Doc. by RN): PATIENT STATES SHE FEELS LIKE SHE HAS THE FLU X 1 WEEK. RECENTLY EXPOSED TO COVID HEENT Symptoms (Recalled from RN notes): No Resp Symptoms (Recalled from RN notes): No Skin Symptoms (Recalled from RN notes): No MS Symptoms (Recalled from RN notes): No Functional Status (Recalled from RN notes): WNL - History of Present Illness Provider Complaint: Patient state that she feels like she has had the flu for about a week State that her neice recently tested positive for COVID and she has been around her States that she has been having nausea and vomiting along with fever, chills and body aches States that today her sister was having similar symptoms so they come in to get tested and checked - Related Data Home Medications Medication Instructions Recorded Confirmed Fluoxetine HCl [Prozac] 20 mg PO DAILY 11/26/21 11/26/21 Trazodone HCl [Desyrel 50mg tablet] 50 mg PO HS 11/26/21 11/26/21 Previous Rx's Medication Instructions Recorded Ondansetron [Zofran 4mg ODT] 4 mg PO T
[2021-11-26 14:24] VITALS: BP 128/86; PULSE 100; RESP 19; TEMP 38; O2SAT 96
== END 2021-11-26 14:32 | disposition home or self-care (01) ==
PROVIDERS: Emergency Provider Nurse Practitioner; PCP Nurse Practitioner
DX: U07.1 COVID-19 (principal); B34.9 Viral infection, unspecified
CPT/HCPCS: 87804; 87880; 99203; C9803; G0463; U0003; U0005

== ENCOUNTER → 2022-04-16 07:38 | Outpatient (CLI) | payer OTHER, SELFPAY ==
[2022-04-15 17:53] LABS: Basophils # 0.1 K/mm3 (0-0.2); Basophils % 1.2 % (0.1-2.0); Eosinophils # 0.1 K/mm3 (0.0-0.4); Hematocrit 41.1 % (37.0-47.0); Hemoglobin 13.9 g/dL (12.2-16.2); Lymphocytes # 2.2 K/mm3 (0.7-4.5); Lymphocytes % 32.2 % (10-50); Mean Corpuscular HGB Conc 33.8 g/dL (31.8-35.4); Mean Corpuscular Hemoglobin 31.2 pg (27.0-31.2); Mean Corpuscular Volume 92.3 fl (81-99); Mean Platelet Volume 8.3 fl (7.4-10.4); Monocytes # 0.3 K/mm3 (0.1-1.0); Monocytes % 4.9 % (1.7-9.3); Neutrophils # 4.2 K/mm3 (1.8-7.8); Neutrophils % 60.8 % (37.0-80.0); Platelet Count 224 K/mm3 (142-424); Red Blood Count 4.45 M/mm3 (4.20-5.40); Red Cell Distribution Width 13.9 % (11.5-17.5); White Blood Count 6.8 K/mm3 (4.8-10.8)
[2022-04-15 18:04] LABS: Alanine Aminotransferase 33 U/L (12-78); Albumin Level 4.2 g/dl (3.5-5.0); Albumin/Globulin Ratio 1.4 (1.1-1.8); Alkaline Phosphatase 81 U/L (38-126); Anion Gap 14.9 mEq/L (5-15); Aspartate Amino Transferase 38 U/L (14-36); Bilirubin,Total 0.2 mg/dl (0.2-1.3); Blood Urea Nitrogen 9 mg/dl (7-17); Calcium 9.3 mg/dl (8.4-10.2); Carbon Dioxide 25 mmol/L (22.0-30.0); Chloride 103 mmol/L (98-107); Chol/HDL Ratio 5.7 (1-3.5); Cholesterol 193 mg/dl (140-200); Estimated Glomerular Filt Rate 98 ml/min (>60); GFR (African American) 119 ML/MIN (>60); Globulin 3.1 g/dL (1.3-3.2); Glucose 123 mg/dl (74-100); HDL Cholesterol 34 mg/dl (40-60); Potassium 3.9 mmoL/L (3.5-5.1); Sodium 139 mmol/L (136-145); Total Protein,Serum 7.3 g/dl (6.3-8.2); Triglycerides 333 mg/dl (30-150); VLDL Cholesterol 67 mg/dL (0-40)
[2022-04-15 18:12] LABS: Hemoglobin A1C 5.7 % (4.0-6.0)
[2022-04-15 18:14] LABS: C-Reactive Protein 11.9 mg/L (0-4); Direct LDL Cholesterol 96.75 mg/dL (100-129)
[2022-04-15 18:27] LABS: 25-OH Vitamin D, Total 32.4 ng/mL (30-100)
[2022-04-15 18:33] LABS: Thyroid Stimulating Hormone 1.35 uIU/mL (0.465-4.68)
[2022-04-15 18:52] LABS: Vitamin B12 327 pg/mL (239-931)
[2022-04-17 09:28] LABS: RA Latex Turbid. 10.1 IU/mL (<14.0)
[2022-04-19 13:30] LABS: Anti-Centromere B Antibodies <0.2 AI (0.0-0.9); Anti-DNA (DS) Ab Qn <1 IU/mL (0-9); Anti-Jo-1 <0.2 AI (0.0-0.9); Anti-Smith Antibody <0.2 AI (0.0-0.9); Antichromatin Antibodies <0.2 AI (0.0-0.9); Antiscleroderma-70 Antibodies <0.2 AI (0.0-0.9); RNP Antibodies <0.2 AI (0.0-0.9); Sjogren's Anti-SS-A <0.2 AI (0.0-0.9); Sjogren's Anti-SS-B <0.2 AI (0.0-0.9)
[2022-04-20 05:10] LABS: Anti-Cyclic Citrullinated Pept 4 units (0-19)
== END ==
PROVIDERS: PCP Physician Assistant; Visit Provider Physician Assistant
DX: Z76.89 Persons encountering health services in other specified circumstances (principal); M25.50 Pain in unspecified joint; Z86.32 Personal history of gestational diabetes; E66.3 Overweight; Z68.30 Body mass index [BMI] 30.0-30.9, adult
CPT/HCPCS: 80053; 80061; 82306; 82607; 83036; 84443; 85025; 86140; 86200; 86225; 86235; 86431

== ENCOUNTER → 2022-04-28 13:32 | Outpatient (CLI) | payer OTHER, SELFPAY ==
--- NOTE | 2022-04-28 13:39 | MR_ITS ---
FINAL REPORT CLINICAL HISTORY: Neck pain, BUE numbness, weakness. BILATERAL ARM AND HAND NUMBNESS AND TINGLING. NO RECENT INJURY OR TRAUMA. HEADACHE. FINDINGS: Multiplanar MR imaging of the cervical spine was performed without contrast. On the sagittal T2-weighted images, disc degeneration is seen at multiple levels. There is no evidence of fracture. There is mild kyphosis centered at C4-C5. The vertebral alignment is normal. The cervical spinal cord has an unremarkable appearance without evidence of mass, edema or syrinx. No significant canal stenosis is identified. The cervicomedullary junction is normal. C2-3: There is no significant canal stenosis or neural foraminal narrowing. C3-4: An annular bulge is present. There is no significant canal stenosis or neural foraminal narrowing. C4-5: There is an annular bulge with a left foraminal disc protrusion. There is mild left neural foraminal narrowing. There is possible left C5 nerve root compromise. C5-6: There is no significant canal stenosis or neural foraminal narrowing. C6-7: There is no significant canal stenosis or neural foraminal narrowing. C7-T1: There is no significant canal stenosis or neural foraminal narrowing. T1-T2: There is no significant canal stenosis or neural foraminal narrowing. IMPRESSION: Left foraminal disc protrusion at C4-C5 with mild left neural foraminal narrowing and possible left C5 nerve root compromise. Reviewed, Interpreted and Dictated by Francis Wong III, MD Transcribed by Mark Chiu Authenticated and [facility]
== END ==
PROVIDERS: PCP Physician Assistant; Visit Provider Physician Assistant
DX: M54.2 Cervicalgia (principal); R20.0 Anesthesia of skin; R20.2 Paresthesia of skin
CPT/HCPCS: 72141; 76376

== ENCOUNTER 2022-06-16 07:00 | Outpatient (RCR) | payer OTHER, SELFPAY | END 2022-07-15 16:45 | disposition home or self-care (01) | LOC: PT.CARL 07:00 | PROVIDERS: PCP Physician Assistant; Visit Provider Nurse Practitioner Family | DX: M54.2 Cervicalgia (principal) | CPT/HCPCS: 97010; 97014; 97110; 97140; 97163; G0283 ==

== ENCOUNTER 2022-06-28 12:15 | Emergency (ER) | payer OTHER, SELFPAY ==
[2022-06-28 12:45] VITALS: BP 141/92; PULSE 89; RESP 22; TEMP 37.1; O2SAT 98; BMI 31.2
[2022-06-28 12:55] LABS: Adenovirus,PCR Not Detected (NotDetected); Bordetella Pertussis Not Detected (NotDetected); Chlamydophila Pneumoniae, PCR Not Detected (NotDetected); Coronavirus 229E Not Detected (NotDetected); Coronavirus NL63 Not Detected (NotDetected); Coronavirus OC43 Not Detected (NotDetected); Coronovirus HKU1,PCR Not Detected (NotDetected); Human Metapneumovirus Not Detected (NotDetected); Influenza A, PCR Not Detected (NotDetected); Influenza AH1, 2009 Not Detected (NotDetected); Influenza AH1, PCR Not Detected (NotDetected); Influenza AH3,PCR Not Detected (NotDetected); Influenza B, PCR Not Detected (NotDetected); Mycoplasma Pneumoniae, PCR Not Detected (NotDetected); Parainfluenza 1, PCR Not Detected (NotDetected); Parainfluenza 2, PCR Not Detected (NotDetected); Parainfluenza 3, PCR Not Detected (NotDetected); Parainfluenza 4, PCR Not Detected (NotDetected); Respiratory Syncytial Virus Not Detected (NotDetected); Rhinovirus/Enterovirus Not Detected (NotDetected)
[2022-06-28 13:11] LABS: UTC Strep Screen (Rapid) Negative (Negative)
--- NOTE | 2022-06-28 13:19 | HMH.EDUTC ---
[facility] [place] Clinical Impression: Viral syndrome Disposition: Home, Self-Care Condition on Discharge: Good Instructions: Diarrhea, Nausea and Vomiting-Adult Additional Instructions: Drink extra fluids with and between meals. If you have difficulty drinking, try very small amounts of water or suck on ice chips. ? Avoid fruit juices, as these do not replace minerals and can actually increase diarrhea. ? Children and adults can use sports drinks to replenish electrolytes. Younger children and infants should use products formulated for children, like oral rehydration solutions. ? Eat food in small amounts and let your stomach recover. ? Get lots of rest. You may feel tired or weak. ? No greasy or fried foods for the next 24-48 hours BRAT diet Bananas Rice Apples and [place] ? Make sure to drink plenty of liquids ? Return if needed ? Straight to ER if any life threatening symptoms ? Zofran as prescribed ? Follow up with family doctor in the next 48-72 hours if no improvement or any worsening of symptoms Prescriptions: Ondansetron [Zofran 4mg ODT] 4 mg PO TIDP PRN #10 tab PRN Reason: Nausea Transmission Status: Sent to [facility] Referrals: Lawrence Pierce [Primary Care Provider] - As needed Forms: Work/School Release Medical Decision Making - Christiano Inquiry Pt receiving controlled substance: No Christiano was queried for this patient: No Vital Signs: 06/28/22 12:45 06/28/22 13:20 Temperature 98.8 F 98.8 F Temperature Source Oral Pulse Rate 89 Pulse Rate [Left Brachial] 89 Respiratory Rate 22 22 Blood Pressure 141/92 H Blood Pressure [Left Arm] 141/92 H Blood Pressure Mean [Left Arm] 108 Blood Pressure Source [Left Arm] Automatic Cuff Blood Pressure Position [Left Arm] Sitting 02 Sat by Pulse Oximetry 98 Oxygen Delivery Method Room Air - Lab Data Lab results reviewed: Yes: I reviewed the patient's lab results. Lab Results 06/28/22 12:57: Strep Scn Rapid Clinic Negative Orders (Tests/Meds): ORDERS Category Date Time Status Full Resp Panel w/COVID ([facility]) Routine Lab 06/28/22 12:40 Received Strep Screen Confirmation Stat Micro 06/28/22 12:57 Received [facility] [place]PI - General Stated complaint: Nausea, Diarreah, headache, cough Time Seen by Provider: 06/28/22 13:19 Mode of Arrival: Ambulatory Source of Information: Patient Limitations: No Limitations Description of Symptoms (Recalled from Triage Doc. by RN): PATIENT C/O NAUSEA, DIARRHEA, COUGH, SORE THROAT, AND CHEST CONGESTION THAT STARTED LAST NIGHT HEENT Symptoms (Recalled from RN notes): Yes Resp Symptoms (Recalled from RN notes): Yes Skin Symptoms (Recalled from RN notes): No MS Symptoms (Recalled from RN notes): No Functional Status (Recalled from RN notes): WNL - History of Present Illness Provider Complaint: Mother states that she started feeling bad last night having nausea, body aches, diarrhea and congestion States that she woke up this morning and was still not feeling well so she came in to get checked - Related Data Previous Rx's Medication Instructions Recorded phentermine 37.5 mg tablet 37.5 mg PO DAILY #30 tab 03/29/22 cefdinir 300 mg capsule 300 mg PO Q12H 10 Days #20 cap 04/19/22 prednisone 20 mg tablet 20 mg PO BID #10 tab 04/19/22 pseudoephedrine HCl 120 mg 120 mg PO Q12H PRN #20 tab 04/19/22 tablet,extended release cyanocobalamin (vitamin B-12) 5,000 mcg PO DAILY #90 tab 04/20/22 5,000 mcg disintegrating tablet divalproex 250 mg tablet,extended 250 mg PO QHS #30 tab 05/05/22 release 24 hr ubrogepant 100 mg tablet 100 mg PO ONCE PRN #16 tab 05/05/22 gclyebgpff-kiuwhripprjxo-jomxbenz 1 cap PO Q8H PRN #30 cap 05/13/22 50 mg-300 mg-40 mg capsule gabapentin 600 mg tablet 600 mg PO BID #60 tab 06/01/22 Ondansetron [Zofran 4mg ODT] 4 mg PO TIDP PRN #10 tab 06/28/22 Allergies Allergy/AdvReac Type Severity Reaction Status Date / Time amoxicillin [From Augmentin] Allergy Mild reaction Verif
[2022-06-28 13:20] VITALS: BP 141/92; PULSE 89; RESP 22; TEMP 37.1; O2SAT 98
[2022-06-29 00:21] LABS: Coronavirus 19, PCR Detected (NotDetected)
== END 2022-06-28 13:23 | disposition home or self-care (01) ==
PROVIDERS: Emergency Provider Nurse Practitioner; PCP Internal Medicine
DX: U07.1 COVID-19 (principal); R11.0 Nausea; R19.7 Diarrhea, unspecified; R51.9 Headache, unspecified
CPT/HCPCS: 87581; 87632; 87798; 87880; 99212; C9803; G0463; U0003; U0005

== ENCOUNTER → 2022-07-22 10:47 | Outpatient (POV) | payer OTHER, SELFPAY ==
[2022-07-22 11:09] VITALS: BP 149/98; PULSE 82; RESP 18; TEMP 36.2; O2SAT 100; BMI 30.7
--- NOTE | 2022-07-22 11:20 | EXP.PAIN.OV ---
HPI Data of Consult Patient: new to practice Consult date: 07/22/22 Requesting Physician: Mehreen Antonio APRN Primary Care Provider: JAMIL Barnett Consult Narrative Reason for consult: Neck pain, upper back pain, bilateral arm pain, left shoulder pain History of present illness: Ms. Iyer is a 31 year old female who presents today as a new patient. She is a referral from Arianna Pierce's office. Today she rates her pain a 7 out of 10 and states it is primarily in her upper back and neck that radiates into her bilateral upper extremities. She describes this as a aching, burning sensation that is worse with increased activity. She states this has been going on since 2017 and has just slowly progressed. Patient denies any trauma or injury that is caused her pain. Patient has tried kkzx-sdi-pbzdwll medications such as Tylenol and ibuprofen with minimal improvement of her symptoms. She also states she has frequent headaches and is on 3 different medications to manage this issue. Patient states she has seen physical therapy with her last visit being about 2 weeks ago. She states they did determine that she should stop due to it aggravating her pain symptoms. Patient states that she has more recently felt a deep achy sensation in her left shoulder/bicep area. She states this is affecting her activities of daily living. She is unable to even hold her child for a long period of time due to the pain. Patient is currently managed with gabapentin 600 mg twice a day by Arianna Pierce. Patient denies any side effects from this medication. She states this medication is actively helping her neuropathy symptoms. Her Christiano is [phone]. It is been reviewed and appropriate. CC: Mehreen Antonio APRN [facility] Medical History (Updated 07/22/22 @ 11:22 by Mehreen Antonio APRN) Anxiety B12 deficiency Depression Gestational diabetes Migraine headache Surgical History (Updated 07/22/22 @ 11:14 by Linda Sandoval RN) H/O dilation and curettage Social History Smoking Status: Never smoker second hand exposure: Yes alcohol intake: never substance use type: denies use current occupational status: other Travel in the last 8 weeks: None household members: family housing: house current occupational exposures/hazards: No caffeine: Yes Review of Systems Review of Systems Review of systems:: pertinent systems reviewed and negative unless documented below Review of systems (narrative): Review of Systems: General: No recent weight changes, no fever, no sleep disturbances Respiratory: No cough, no shortness of air, no recurring pulmonary infections Cardiovascular/peripheral vascular: No chest pain, no palpitations, no edema, no shortness of breath Gastrointestinal: No new onset incontinence, normal bowel movements reported Genitourinary: No new onset incontinence Musculoskeletal: Neck pain, bilateral arm pain, left shoulder pain Psychiatric: [Normal mood/affect] Neurological: [Denies weakness in extremities], [denies balance issues] Meds Home Medications and Allergies Home Medications Medication Instructions Recorded Confirmed Type vhvlvjfosr-jabbykofulfag-fztvbqfq 1 cap PO Q8H PRN migraine headache 05/13/22 07/22/22 Rx 50 mg-300 mg-40 mg capsule #30 caps (Fioricet) ondansetron 4 mg disintegrating 4 mg PO TIDP PRN Nausea #10 tabs 06/28/22 07/22/22 Rx tablet benzonatate 200 mg capsule 200 mg PO BID PRN cough #30 caps 06/29/22 07/22/22 Rx pseudoephedrine HCl 120 mg 120 mg PO Q12H PRN nasal 06/29/22 07/22/22 Rx tablet,extended release (Sudafed congestion #20 tabs 12 Hour) ubrogepant 100 mg tablet (Ubrelvy) 100 mg PO ONCE PRN headache #16 06/29/22 07/22/22 Rx tabs promethazine 25 mg tablet 25 mg PO TID PRN nausea and 06/30/22 07/22/22 Rx vomiting #20 tabs cyanocobalamin (vitamin B-12) 5,000 mcg PO DAILY SUPPLIMENT 07/22/22 07/22/22 History 5,000 mcg disintegrating tablet divalproex 2
== END ==
PROVIDERS: PCP Physician Assistant; Visit Provider Nurse Practitioner Family
DX: M50.123 Cervical disc disorder at C6-C7 level with radiculopathy (principal); R51.9 Headache, unspecified
CPT/HCPCS: 99202; G0463

== ENCOUNTER 2022-11-14 19:19 | Emergency (ER) | payer OTHER, SELFPAY ==
[2022-11-14 19:20] VITALS: BP 120/84; PULSE 104; RESP 20; TEMP 37.4; O2SAT 99; BMI 30.9
--- NOTE | 2022-11-14 19:29 | EXP.UTC ---
Discharge Plan Disposition Patient Disposition: Home, Self-Care Condition: Good Prescriptions Prescriptions: New methylprednisolone 4 mg Tablets,Dose Pack 4 mg PO DIRECTED Qty: 21 0RF kkqcgeik-uuamneknr-DX 3.5-10,000-10 mg-unit-mg/mL Drops,Suspension 1 drp Eye-Left TID 7 Days Qty: 1 0RF No Action zdbumsojav-izfjwyhkqfoiv-ixzj [Fioricet] 50-300-40 mg capsule 1 cap PO Q8H PRN (Reason: migraine headache) Qty: 30 0RF promethazine-DM 6.25-15 mg/5 mL syrup 5 ml PO Q6H PRN (Reason: cough) Qty: 180 0RF albuterol sulfate [Proventil HFA] 90 mcg/actuation HFA aerosol inhaler 2 puff inhalation Q6H PRN (Reason: shortness of breath or wheezing) Qty: 8.5 0RF ondansetron 8 mg tablet,disintegrating 8 mg PO Q8H PRN (Reason: nausea and vomiting) Qty: 30 0RF gabapentin [Neurontin] 600 mg tablet 600 mg PO BID Qty: 60 2RF phentermine [Adipex-P] 37.5 mg tablet 37.5 mg PO DAILY Qty: 30 0RF Rx Instructions: must administer 30 minutes before or 1-2 hours after breakfast divalproex [Depakote ER] 250 mg tablet extended release 24 hr 250 mg PO QHS Qty: 90 0RF Ubrelvy 100 mg tablet 100 mg PO ONCE PRN (Reason: headache) Qty: 16 2RF pseudoephedrine HCl [Sudafed 12 Hour] 120 mg tablet extended release 120 mg PO Q12H PRN (Reason: nasal congestion) Qty: 20 0RF Rx Instructions: Hold Adipex while taking Sudafed cyanocobalamin (vitamin B-12) 5,000 mcg tablet,disintegrating 5,000 mcg PO DAILY Referrals Follow up/Referrals: Arianna Pierce PA [Primary Care Provider] - See instructions Activity Restrictions/Add. Instructions Additional Instructions/Restrictions: Use the eye drops as directed. Strict hand washing in the house hold, because conjunctivitis is very contagious. Follow up with your regular doctor. GO TO THE ER FOR ANY WORSENING SYMPTOMS OR CONCERNS Make sure you don't use the ofloxacin eye drops any more. You should list this medication as an allergy for you. Follow up with your eye doctor within the next 24 to 48 hours if you don't have improvement of your symptoms. Clinical Impressions Clinical Impression: Allergic reaction, Conjunctivitis of left eye Instructions Patient Instructions: How to Instill Eye Drops, DI for Conjunctivitis, DI for Eye Allergic Reaction Discharge ED Provider: Adryan Carvajal [facility] General Stated complaint: possible reaction to eye drops Time Seen by Provider: 11/14/22 19:29 History of Present Illness Provider Complaint: She states that for the past 3 days she has had left eye irritation. Her children currently have conjunctivitis and they are on antibiotic eye drops (ofloxacin). Yesterday, she put the ofloxacin drops in her left eye. When she woke up this morning she had swelling of her left eye lids and her eye irritation was slightly worse. She believes she is allergic to the eye drop (ofloxacin) that she put in her eye. She denies any change in her vision or eye pain (other than the irritation feeling). She denies any foreign body or eye injury. Related Data Home Medications Medication Instructions Recorded Confirmed cyanocobalamin (vitamin B-12) 5,000 mcg PO DAILY SUPPLIMENT 07/22/22 10/21/22 5,000 mcg disintegrating tablet Previous Rx's Medication Instructions Recorded ubrogepant 100 mg tablet (Ubrelvy) 100 mg PO ONCE PRN headache #16 06/29/22 tabs ignmpauyyp-kgiaxtrnnseeb-tvqberqg 1 cap PO Q8H PRN migraine headache 08/05/22 50 mg-300 mg-40 mg capsule #30 caps (Fioricet) albuterol sulfate 90 mcg/actuation 2 puff inhalation Q6H PRN 10/21/22 aerosol inhaler (Proventil HFA) shortness of breath or wheezing #8.5 grams divalproex 250 mg tablet,extended 250 mg PO QHS headache prevention 10/21/22 release 24 hr (Depakote ER) #90 tabs gabapentin 600 mg tablet 600 mg PO BID Pain #60 tabs 10/21/22 (Neurontin) ondansetron 8 mg disintegrating 8 mg PO Q8H PRN nausea and 10/21/22 tablet vomit
[2022-11-14 19:47] VITALS: BP 120/84; PULSE 104; RESP 20; TEMP 37.4; O2SAT 99
== END 2022-11-14 20:13 | disposition home or self-care (01) ==
PROVIDERS: Emergency Provider Nurse Practitioner Family; PCP Physician Assistant
DX: H10.9 Unspecified conjunctivitis (principal); T78.40XA Allergy, unspecified, initial encounter
CPT/HCPCS: 96372; 99212; 99213; G0463

== ENCOUNTER 2023-03-05 12:02 | Emergency (ER) | payer OTHER, SELFPAY ==
[2023-03-05 12:10] VITALS: PULSE 102; RESP 20; TEMP 37; O2SAT 100; BMI 31.8
[2023-03-05 12:34] LABS: UTC Strep Screen (Rapid) Negative (Negative)
--- NOTE | 2023-03-05 12:34 | EXP.UTC ---
Discharge Plan Disposition Patient Disposition: Home, Self-Care Condition: Good Prescriptions Prescriptions: New biwhqyhkdepfioj-nwqjlctcb-ZJ [Bromfed DM] 2-30-10 mg/5 mL Syrup 5 ml PO Q6H PRN (Reason: Cough) Qty: 240 0RF cefdinir 300 mg capsule 300 mg PO BID Qty: 20 0RF methylprednisolone 4 mg Tablets,Dose Pack 4 mg PO DIRECTED Qty: 21 0RF No Action albuterol sulfate [Proventil HFA] 90 mcg/actuation HFA aerosol inhaler 2 puff inhalation Q6H PRN (Reason: shortness of breath or wheezing) Qty: 8.5 0RF gabapentin [Neurontin] 600 mg tablet 600 mg PO BID Qty: 60 2RF divalproex [Depakote ER] 250 mg tablet extended release 24 hr 250 mg PO QHS Qty: 90 0RF Ubrelvy 100 mg tablet 100 mg PO ONCE PRN (Reason: headache) Qty: 16 2RF rmrizwfvqb-jztjxhnnvahpz-vwki [Fioricet] 50-300-40 mg capsule 1 cap PO Q8H PRN (Reason: migraine headache) Qty: 30 0RF cyanocobalamin (vitamin B-12) 5,000 mcg tablet,disintegrating 5,000 mcg PO DAILY celecoxib [Celebrex] 200 mg capsule 200 mg PO DAILY Referrals Follow up/Referrals: Arianna Pierce PA [Primary Care Provider] - See instructions Activity Restrictions/Add. Instructions Additional Instructions/Restrictions: Drink plenty of fluids. Take tylenol or ibuprofen for pain or fever. Take the medications as directed. Follow up with your regular doctor. GO TO THE ER FOR ANY WORSENING SYMPTOMS Throw your tooth brush away and get a new one. Clinical Impressions Clinical Impression: Pharyngitis Stand Alone Forms Stand Alone Forms: Work/School Release Instructions Patient Instructions: Strep Throat, DI for Strep Throat Discharge ED Provider: Adryan Carvajal [facility] General Stated complaint: Cough; sorre throat; headache Mode of Arrival: Ambulatory Source of Information: Patient Limitations: No Limitations Time Seen by Provider: 03/05/23 12:31 Description of Symptoms (Recalled from Triage Doc. by RN): Sore throat, sinus pressure, right ear pain, and cough HEENT Symptoms (Recalled from RN notes): Yes Resp Symptoms (Recalled from RN notes): No Skin Symptoms (Recalled from RN notes): No MS Symptoms (Recalled from RN notes): No Functional Status (Recalled from RN notes): n/a History of Present Illness Provider Complaint: She c/o sore throat for the past 2 days. Related Data Home Medications Medication Instructions Recorded Confirmed cyanocobalamin (vitamin B-12) 5,000 mcg PO DAILY SUPPLIMENT 07/22/22 02/23/23 5,000 mcg disintegrating tablet celecoxib 200 mg capsule (Celebrex) 200 mg PO DAILY . 03/05/23 03/05/23 Previous Rx's Medication Instructions Recorded ubrogepant 100 mg tablet (Ubrelvy) 100 mg PO ONCE PRN headache #16 06/29/22 tabs albuterol sulfate 90 mcg/actuation 2 puff inhalation Q6H PRN 10/21/22 aerosol inhaler (Proventil HFA) shortness of breath or wheezing #8.5 grams irmgzhjkdg-yhqeharvhwdnq-qjixynkt 1 cap PO Q8H PRN migraine headache 01/13/23 50 mg-300 mg-40 mg capsule #30 caps (Fioricet) divalproex 250 mg tablet,extended 250 mg PO QHS headache prevention 02/01/23 release 24 hr (Depakote ER) #90 tabs gabapentin 600 mg tablet 600 mg PO BID Pain #60 tabs 02/01/23 (Neurontin) vbjrrdmwygknvbo-ekkmbptrgalcoii-WN 5 ml PO Q6H PRN Cough #240 mL 03/05/23 2 mg-30 mg-10 mg/5 mL oral syrup (Bromfed DM) cefdinir 300 mg capsule 300 mg PO BID #20 caps 03/05/23 methylprednisolone 4 mg tablets in 4 mg PO DIRECTED #21 tabs 03/05/23 a dose pack Allergies Allergy/AdvReac Type Severity Reaction Status Date / Time amoxicillin [From Augmentin] Allergy Mild reaction Verified 03/05/23 12:23 as a child (rash) clavulanic acid Allergy Mild reaction Verified 03/05/23 12:23 [From Augmentin] as a child (rash) sulfisoxazole Allergy Mild REACTION Verified 03/05/23 12:23 [From Pediazole] WHEN SHE WAS A CHILD (rash) azithromycin [From Zithromax] AdvR
[2023-03-05 12:58] VITALS: BP 0/0; PULSE 102; RESP 20; TEMP 37; O2SAT 100
== END 2023-03-05 12:58 | disposition home or self-care (01) ==
PROVIDERS: Emergency Provider Nurse Practitioner Family; PCP Physician Assistant
DX: J02.9 Acute pharyngitis, unspecified (principal); R51.9 Headache, unspecified; H92.01 Otalgia, right ear; R05.9 Cough, unspecified
CPT/HCPCS: 87880; 99212; 99214; G0463

== ENCOUNTER 2023-07-22 12:49 | Emergency (ER) | payer OTHER, SELFPAY ==
[2023-07-22 12:50] VITALS: BP 141/96; PULSE 122; RESP 19; TEMP 36.6; O2SAT 99; BMI 32.3
--- NOTE | 2023-07-22 13:22 | EXP.UTC ---
Discharge Plan Disposition Patient Disposition: Home, Self-Care Condition: Good Prescriptions Prescriptions: New methylprednisolone [Medrol (Mac)] 4 mg tablets,dose pack See Rx Instructions .Route .COMPLEX 6 Days Qty: 21 0RF Rx Instructions: taper pack; cefdinir 300 mg capsule 300 mg PO BID Qty: 20 0RF guaifenesin [Mucinex] 600 mg tablet extended release 12hr 1,200 mg PO BID PRN (Reason: cough) Qty: 20 0RF albuterol sulfate [Proventil HFA] 90 mcg/actuation HFA aerosol inhaler 1 inh inhalation Q6H PRN (Reason: shortness of breath or wheezing) Qty: 8.5 0RF benzonatate 100 mg capsule 100 mg PO TID PRN (Reason: cough) Qty: 30 0RF No Action triamcinolone acetonide 0.5 % ointment 1 applic topical BID Qty: 15 1RF indomethacin 75 mg capsule, extended release 75 mg PO BID Qty: 60 0RF gabapentin [Neurontin] 600 mg tablet 600 mg PO BID Qty: 60 2RF iabfjiyjec-iognmxiixmpmg-efas 50-325-40 mg tablet 1 tab PO Q6H PRN (Reason: headache) Qty: 30 2RF albuterol sulfate [Proventil HFA] 90 mcg/actuation HFA aerosol inhaler 2 puff inhalation Q6H PRN (Reason: shortness of breath or wheezing) Qty: 8.5 0RF divalproex [Depakote ER] 250 mg tablet extended release 24 hr 250 mg PO QHS Qty: 90 0RF Ubrelvy 100 mg tablet 100 mg PO ONCE PRN (Reason: headache) Qty: 16 2RF phentermine [Adipex-P] 37.5 mg tablet 37.5 mg PO DAILY Qty: 30 0RF Rx Instructions: must administer 30 minutes before or 1-2 hours after breakfast pseudoephedrine HCl [Sudafed 12 Hour] 120 mg tablet extended release 120 mg PO Q12H PRN (Reason: nasal congestion) Qty: 20 0RF cyanocobalamin (vitamin B-12) 5,000 mcg tablet,disintegrating 5,000 mcg PO DAILY Referrals Follow up/Referrals: Arianna Pierce PA [Primary Care Provider] - See instructions Activity Restrictions/Add. Instructions Additional Instructions/Restrictions: Start antibiotic today. Be sure to complete entire prescription even if feeling better Monitor temp. Tylenol every 4 hours as needed and / or ibuprofen every 6 hours as needed ( As long as your primary care physician has told you that it ok to take both. For fever/aches/pains ER if no less than 101 despite Tylenol or Motrin Humidifier/vaporizer or hot steamy shower Inhaler every 4-6 hours as needed like we discussed. If unsure how to use it, ask pharmacist to demonstrate how. Should help open airways and improve cough, wheezing, and shortness of breath Mucinex during the day for your cough and cough suppressant only at night. Be sure to drink lots of water. *Promethazine DM cough syrup will cause drowsiness. Use only at night. No driving, operating machinery or caring for small children after taking it *Tessalon Perles will not cause drowsiness but use at bedtime to help stop cough so that you may get some rest. *Start steroid today. Helps with inflammation therefore, cough and wheezing. Follow directions on the package. Reviewed side effects. Patient reports taking them before. Follow up IMMEDIATELY for new or worsening of symptoms OR no noticeable improvement over the next 48-72 hours. 911 immediately for any life threatening symptoms such as chest pain or difficulty breathing Clinical Impressions Clinical Impression: Bronchitis Sinusitis Qualifiers: Sinusitis location: unspecified location Chronicity: unspecified Qualified Code(s): J32.9 - Chronic sinusitis, unspecified Stand Alone Forms Stand Alone Forms: Work/School Release Instructions Patient Instructions: Sinusitis, Acute Bronchitis, DI for Sinusitis Discharge ED Provider: Jodi Thompson [facility] General Stated complaint: soa, cough, cold sweats, VIRGEN, weak Mode of Arrival: Ambulatory Source of Information: Patient Limitations: No Limitations Time Seen by Provider: 07/22/23 13:22 Description of Symptoms (Recalled from Triage Doc.
[2023-07-22 13:37] LABS: Adenovirus,PCR Not Detected (NotDetected); Bordetella Pertussis Not Detected (NotDetected); Chlamydophila Pneumoniae, PCR Not Detected (NotDetected); Coronavirus 19, PCR Not Detected (NotDetected); Coronavirus 229E Not Detected (NotDetected); Coronavirus NL63 Not Detected (NotDetected); Coronavirus OC43 Not Detected (NotDetected); Coronovirus HKU1,PCR Not Detected (NotDetected); Human Metapneumovirus Not Detected (NotDetected); Influenza A, PCR Not Detected (NotDetected); Influenza AH1, 2009 Not Detected (NotDetected); Influenza AH1, PCR Not Detected (NotDetected); Influenza AH3,PCR Not Detected (NotDetected); Influenza B, PCR Not Detected (NotDetected); Mycoplasma Pneumoniae, PCR Not Detected (NotDetected); Parainfluenza 1, PCR Not Detected (NotDetected); Parainfluenza 2, PCR Not Detected (NotDetected); Parainfluenza 3, PCR Not Detected (NotDetected); Parainfluenza 4, PCR Not Detected (NotDetected); Respiratory Syncytial Virus Not Detected (NotDetected)
[2023-07-22 13:39] VITALS: BP 141/96; PULSE 122; RESP 19; TEMP 36.6; O2SAT 99
[2023-07-22 15:44] LABS: Rhinovirus/Enterovirus Detected (NotDetected)
== END 2023-07-22 13:40 | disposition home or self-care (01) ==
PROVIDERS: Emergency Provider Nurse Practitioner; PCP Physician Assistant
DX: J20.9 Acute bronchitis, unspecified (principal); B34.8 Other viral infections of unspecified site; R06.02 Shortness of breath; F41.9 Anxiety disorder, unspecified; F32.A Depression, unspecified
CPT/HCPCS: 87581; 87632; 87798; 99212; 99214; G0463

== ENCOUNTER → 2023-09-29 08:21 | Outpatient (CLI) | payer OTHER, SELFPAY ==
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
--- NOTE | 2023-09-29 08:22 | MR_ITS ---
FINAL REPORT CLINICAL HISTORY: NECK PAIN, RADIATING LUE COMPARISON: 04/28/2022 FINDINGS: Multi planar MR imaging was obtained of the cervical spine. There is abnormal decreased signal involving the C4-5 cervical disc. The vertebrae are of normal height. There is mild reversal of the normal cervical lordosis. The cervical cord demonstrates normal signal and configuration. C2-C3: There is no evidence of significant disc bulge or protrusion. There is no significant facet hypertrophy. C3-C4: There is no evidence of significant disc bulge or protrusion. There is no significant facet hypertrophy. C4-C5: A small annular bulge is present with mild neuroforaminal narrowing, slightly more prominent on the left than the right. There is no significant facet hypertrophy. C5-C6: There is no evidence of significant disc bulge or protrusion. There is no significant facet hypertrophy. C6-C7: There is no evidence of significant disc bulge or protrusion. There is no significant facet hypertrophy. C7-T1: There is no evidence of significant disc bulge or protrusion. There is no significant facet hypertrophy. IMPRESSION: A small annular bulge is present at the C4-5 level with mild neural foraminal narrowing, slightly more prominent on the left than the right. Otherwise unremarkable MRI of the cervical spine. Reviewed, Interpreted and Dictated by Nitin Hills MD Transcribed by Savannah Moran Authenticated and [facility]
== END ==
LOC: RAD 08:22
PROVIDERS: PCP Physician Assistant; Visit Provider Physician Assistant
DX: M54.6 Pain in thoracic spine (principal); M50.121 Cervical disc disorder at C4-C5 level with radiculopathy; M54.50 Low back pain, unspecified
CPT/HCPCS: 72141; 72146; 72148; 76376

== ENCOUNTER 2023-11-18 10:09 | Outpatient (CLI) | payer OTHER, SELFPAY ==
[2023-11-18 12:47] LABS: Alanine Aminotransferase 69 U/L (12-78); Albumin Level 4.5 g/dl (3.5-5.0); Albumin/Globulin Ratio 1.3 (1.1-1.8); Alkaline Phosphatase 159 U/L (38-126); Anion Gap 15.4 mEq/L (5-15); Aspartate Amino Transferase 83 U/L (14-36); Bilirubin,Total 0.7 mg/dl (0.2-1.3); Blood Urea Nitrogen 14 mg/dl (7-17); Calcium 9.6 mg/dl (8.4-10.2); Carbon Dioxide 25 mmol/L (22.0-30.0); Chloride 102 mmol/L (98-107); Chol/HDL Ratio 7.7 (1-3.5); Cholesterol 271 mg/dl (140-200); Estimated Glomerular Filt Rate 143 ml/min (>60); GFR (African American) 173 ML/MIN (>60); Globulin 3.5 g/dL (1.3-3.2); Glucose 290 mg/dl (74-100); HDL Cholesterol 35 mg/dl (40-60); Iron 115 ug/dL (37-170); Potassium 4.4 mmoL/L (3.5-5.1); Sodium 138 mmol/L (136-145); Triglycerides 302 mg/dl (30-150); VLDL Cholesterol 60 mg/dL (0-40)
[2023-11-18 12:50] LABS: Basophils % 0.7 % (0.1-2.0); Eosinophils # 0.1 K/mm3 (0.0-0.4); Eosinophils % 1.3 % (0.1-12.0); Hemoglobin 16.4 g/dL (12.2-16.2); Mean Corpuscular HGB Conc 32.8 g/dL (31.8-35.4); Mean Corpuscular Volume 94.5 fl (81-99); Mean Platelet Volume 9.1 fl (7.4-10.4); Monocytes # 0.3 K/mm3 (0.1-1.0); Monocytes % 5.3 % (1.7-9.3); Neutrophils # 3.4 K/mm3 (1.8-7.8); Neutrophils % 58.6 % (37.0-80.0); Platelet Count 207 K/mm3 (142-424); Red Blood Count 5.28 M/mm3 (4.20-5.40); Red Cell Distribution Width 13.3 % (11.5-17.5); White Blood Count 5.8 K/mm3 (4.8-10.8)
[2023-11-18 12:56] LABS: Total Iron Binding Capacity 335 ug/dL (265-497)
[2023-11-18 12:57] LABS: Direct LDL Cholesterol 169.25 mg/dL (100-129)
[2023-11-18 12:59] LABS: Amphetamine/Metha Screen,Urine Negative ng/ml (<1000); Barbiturates Screen,Urine Negative ng/ml (<200); Cannabinoid Screen,Urine Negative ng/ml (<50); Cocaine Screen,Urine Negative ng/ml (<300); Methadone Screen,Urine Negative ng/ml (<300); Opiate Screen,Urine Negative ng/ml (<300); Phencyclidine Screen,Urine Negative ng/ml (<25)
[2023-11-18 13:04] LABS: HCG,Quantitative < 2 mIU/ml (0-5.42)
[2023-11-18 13:08] LABS: Benzodiazepines Screen,Urine Negative ng/ml (<200)
[2023-11-18 13:20] LABS: 25-OH Vitamin D, Total 24.8 ng/mL (30-100)
[2023-11-18 15:01] LABS: Vitamin B12 526 pg/mL (239-931)
[2023-11-18 16:46] LABS: Hemoglobin A1C 9.8 % (4.0-6.0)
== END 2023-11-18 23:59 ==
LOC: LAB.DROPOF 11-19 10:10
PROVIDERS: PCP Physician Assistant; Visit Provider Physician Assistant
DX: E53.8 Deficiency of other specified B group vitamins (principal); R53.83 Other fatigue; M54.12 Radiculopathy, cervical region; R73.09 Other abnormal glucose; E55.9 Vitamin D deficiency, unspecified; Z32.00 Encounter for pregnancy test, result unknown; Z79.899 Other long term (current) drug therapy; R79.1 Abnormal coagulation profile
CPT/HCPCS: 80053; 80061; 80307; 82306; 82607; 83036; 83540; 83550; 84443; 84702; 85025

== ENCOUNTER 2024-01-06 11:58 | Emergency (ER) | payer OTHER, SELFPAY ==
[2024-01-06 12:15] VITALS: BP 131/85; PULSE 106; RESP 22; TEMP 36.9; O2SAT 98; BMI 32.5
--- NOTE | 2024-01-06 12:21 | EXP.UTC ---
Discharge Plan Disposition Patient Disposition: Home, Self-Care Condition: Good Prescriptions Prescriptions: New methylprednisolone 4 mg Tablets,Dose Pack 4 mg PO DIRECTED 6 Days Qty: 21 0RF Rx Instructions: Take 1 pack as directed for 6 days jzmaekemffnsklv-hxzuxqcfy-LA [Bromfed DM] 2-30-10 mg/5 mL Syrup 5 ml PO Q6H PRN (Reason: Cough) Qty: 240 0RF cefdinir 300 mg capsule 300 mg PO BID Qty: 20 0RF No Action albuterol sulfate [Proventil HFA] 90 mcg/actuation HFA aerosol inhaler 1 inh inhalation Q6H PRN (Reason: shortness of breath or wheezing) Qty: 8.5 0RF pregabalin [Lyrica] 75 mg capsule 75 mg PO BID Qty: 60 0RF celecoxib [Celebrex] 200 mg capsule 200 mg PO DAILY Qty: 30 2RF tizanidine [Zanaflex] 4 mg tablet 4 mg PO BID PRN (Reason: muscle spasticity) Qty: 60 0RF lidocaine [Lidoderm] 5 % adhesive patch,medicated 2 patch topical DAILY Qty: 30 0RF Rx Instructions: leave on most painful area for up to 12 hrs Ubrelvy 100 mg tablet 100 mg PO ONCE PRN (Reason: headache) Qty: 16 2RF lityikjlah-rmsuyukcmhenv-ljyi 50-325-40 mg tablet 1 tab PO Q6H PRN (Reason: headache) Qty: 30 2RF ergocalciferol (vitamin D2) 1,250 mcg (50,000 unit) capsule 1,250 mcg PO WEEKLY Qty: 14 3RF cholecalciferol (vitamin D3) 50 mcg (2,000 unit) capsule 50 mcg PO DAILY Qty: 90 3RF (DME) blood-glucose meter [Advanced Glucose Meter] [facility] See Rx Instructions .ROUTE .MEDSUPPLY Qty: 1 0RF Rx Instructions: As directed (DME) Advanced Gluc Meter Test Strip Strip See Rx Instructions .ROUTE .MEDSUPPLY Qty: 200 3RF Rx Instructions: FS TID aspirin [Adult Low Dose Aspirin] 81 mg tablet,delayed release (DR/EC) 81 mg PO DAILY Qty: 90 3RF lisinopril 2.5 mg tablet 2.5 mg PO DAILY Qty: 90 3RF atorvastatin 10 mg tablet 10 mg PO DAILY Qty: 90 3RF glipizide 5 mg tablet extended release 24hr 5 mg PO DAILY Qty: 90 3RF metformin 500 mg tablet extended release 24 hr 500 mg PO DAILY Qty: 90 3RF alcohol swabs [Alcohol Pads] Pads, Medicated 1 pad topical TID Qty: 200 3RF (DME) lancets [Accu-Chek Softclix Lancets] [facility] See Rx Instructions .Route Qty: 200 3RF Rx Instructions: FS TID ondansetron 4 mg tablet,disintegrating 4 mg PO Q6H PRN (Reason: nausea and vomiting) Qty: 30 0RF insulin aspart U-100 [Novolog U-100 Insulin aspart] 100 unit/mL solution 10 unit SQ BID Qty: 10 2RF (DME) pen needle, diabetic [Comfort EZ Pen Santo] 32 gauge x 5/32 needle See Rx Instructions .Route Qty: 100 2RF Rx Instructions: As directed meclizine 25 mg tablet See Rx Instructions .ROUTE .COMPLEX Qty: 90 0RF Dose Instruction: TAKE 1 TABLET 3 TIMES EACH DAY Rx Instructions: TAKE 1 TABLET 3 TIMES EACH DAY cyanocobalamin (vitamin B-12) 5,000 mcg tablet,disintegrating 5,000 mcg PO DAILY Referrals Follow up/Referrals: Arianna Pierce PA [Primary Care Provider] - See instructions Activity Restrictions/Add. Instructions Additional Instructions/Restrictions: Drink plenty of fluids. Take tylenol or ibuprofen for pain or fever. Take the medications as directed. Follow up with your regular doctor. GO TO THE ER FOR ANY WORSENING SYMPTOMS Clinical Impressions Clinical Impression: Bronchitis, Acute viral syndrome Instructions Patient Instructions: DI for Acute Bronchitis, DI for Viral Syndrome Discharge ED Provider: Adryan Carvajal [facility] General Stated complaint: congestion, cough, fever, cough Time Seen by Provider: 01/06/24 12:21 History of Present Illness Provider Complaint: She states that for the past 2 days she has had sore throat, chills, body aches and low grade fever. Related Data Home Medications Medication Instructions Recorded Confirmed cyanocobalamin (vitamin B-12) 5,000 mcg PO DAILY SUPPLIMENT 07/22/22 12/16/23 5,000 mcg disintegrating tablet Previous Rx's Medication Instructions Recorded ubrogepant 100 mg tablet (Ubrelvy) 100 mg PO ONCE PRN headache #16 08/16/22 tabs sczuyruxat-rcbbcobjnjabe-ekjjyhst 1 tab PO Q6H PRN headache #30 tabs 07/27/23 50 mg-325 mg-40 mg tablet lidocaine 5 % topical patch 2 patch topical DAILY #30 ea 08/16/23 (Lidoderm) albuterol sulfate 90 mcg/actuation 1 inh inhalation Q6H PRN shortness 09/05/23 aerosol inhaler (Proventil HFA) of breath or wheezing #8.5 grams alcohol swabs (Alcohol Pads) 1 pad topical TID Diabetes #200 ea 11/21/23 aspirin 81 mg tablet,delayed 81 mg PO DAILY #90 tabs 11/21/23 release (Adult Low Dose Aspirin) atorvastatin 10 mg tablet 10 mg PO DAILY #90 tabs 11/21/23 blood sugar diagnostic (Advanced #200 ea 11/21/23 Glucose Meter Test Strips) blood-glucose meter (Advanced #1 ea 11/21/23 Glucose Meter) cholecalciferol (vitamin D3) 50 50 mcg PO DAILY #90 caps 11/21/23 mcg (2,000 unit) capsule ergocalciferol (vitamin D2) 1,250 1,250 mcg PO WEEKLY #14 caps 11/21/23 mcg (50,000 unit) capsule glipizide 5 mg tablet, extended 5 mg PO DAILY #90 tabs 11/21/23 release 24 hr lancets (Accu-Chek Softclix #200 ea 11/21/23 Lancets) lisinopril 2.5 mg tablet 2.5 mg PO DAILY #90 tabs 11/21/23 metformin 500 mg tablet,extended 500 mg PO DAILY #90 tabs 11/21/23 release 24 hr insulin aspart U-100 100 unit/mL 10 unit (0.1 mL) SQ BID #10 mL 11/24/23 subcutaneous solution (Novolog U-100 Insulin aspart) ondansetron 4 mg disintegrating 4 mg PO Q6H PRN nausea and 11/24/23 tablet vomiting #30 tabs pen needle, diabetic 32 gauge x #100 ea 11/24/23 (Comfort EZ Pen Santo) celecoxib 200 mg capsule (Celebrex) 200 mg PO DAILY #30 caps 12/16/23 pregabalin 75 mg capsule (Lyrica) 75 mg PO BID #60 caps 12/16/23 tizanidine 4 mg tablet (Zanaflex) 4 mg PO BID PRN muscle spasticity 12/16/23 #60 tabs meclizine 25 mg tablet See Rx Instructions .Route 12/20/23 .COMPLEX #90 tabs sksczyqwaskmebl-uglneostipexvqx-KT 5 ml PO Q6H PRN Cough #240 mL 01/06/24 2 mg-30 mg-10 mg/5 mL oral syrup (Bromfed DM) cefdinir 300 mg capsule 300 mg PO BID #20 caps 01/06/24 methylprednisolone 4 mg tablets in 4 mg PO DIRECTED 6 days #21 tabs 01/06/24 a dose pack Allergies Allergy/AdvReac Type Severity Reaction Status Date / Time amoxicillin [From Augmentin] Allergy Mild reaction Verified 12/16/23 11:23 as a child (rash) clavulanic acid Allergy Mild reaction Verified 12/16/23 11:23 [From Augmentin] as a child (rash) sulfisoxazole Allergy Mild REACTION Verified 12/16/23 11:23 [From Pediazole] WHEN SHE WAS A CHILD (rash) azithromycin [From Zithromax] AdvReac Mild NA-NAUSEA/V Verified 12/16/23 11:23 OMITING erythromycin base AdvReac Mild NA-NAUSEA/V Verified 12/16/23 11:23 OMITING amitriptyline AdvReac Verified 12/16/23 11:23 PFSH [facility] Disclaimer: The information contained in this section may have been updated after the patient was seen, as this information can be updated by other users. Medical History Anxiety B12 deficiency Depression Gestational diabetes Migraine headache Type 2 diabetes mellitus Surgical History H/O dilation and curettage Social History Smoking Status: Never smoker second hand exposure: Yes alcohol intake: never substance use type: denies use current occupational status: other Travel in the last 8 weeks: None household members: family housing: house current occupational exposures/hazards: No caffeine: Yes ROS Obtained: Yes All systems reviewed & no additional complaints except as documented Constitutional Constitutional: Reports chills and Reports fever(s) Eyes Eyes: Denies eye discharge ENT Ears, Nose, Mouth, and Throat: Reports as per HPI Cardiovascular Cardiovascular: Denies chest pain Respiratory Respiratory: Denies chest congestion and Reports cough Gastrointestinal Gastrointestingal: Reports nausea; Denies abdominal pain, constipation, cramping, diarrhea or vomiting Musculoskeletal Musculoskeletal: Denies arthralgias Integumentary/Breasts Skin/Breast: Denies rash Neurologic Neurologic: Denies paresthesias Physical Exam General General appearance: alert and in no apparent distress Eye Eye exam: Present normal appearance, PERRL and EOMI ENT ENT exam: Present mucous membranes moist and normal external ear exam Expanded ENT Exam External ear exam: Present normal external inspection TM/Canal exam: Bilateral TM: erythema and bulging Nose exam: Absent sinus tenderness Nasal speculum exam: Bilateral: normal Mouth exam: Present normal external inspection; Absent drooling Teeth exam: Present normal inspection Throat exam: Present tonsillar erythema and tonsillomegaly Neck Neck exam: Present normal inspection, full ROM and trachea midline; Absent tenderness, lymphadenopathy or thyromegaly Chest Chest inspection: Present normal inspection and symmetric chest wall rise; Absent tenderness or rash Respiratory Respiratory exam: Present normal lung sounds bilaterally; Absent respiratory distress, wheezes, stridor or accessory muscle use Cardiovascular Cardiovascular exam: Present regular rate, normal rhythm and normal heart sounds Abdominal Exam Abdominal exam: Present soft; Absent distention, tenderness, guarding, rebound or rigidity Extremities Exam Extremities exam: Present normal inspection, full ROM and normal capillary refill; Absent tenderness or calf tenderness Back Exam Back exam: Present normal inspection and full ROM; Absent tenderness Neurological Exam Neurological exam: Present alert and oriented X3 Psychiatric Psychiatric exam: Present normal affect and normal mood Skin Skin exam: Present warm, dry, intact and normal color Lymphatic Lymphatic Findings: no adenopathy Medical Decision Making Medical Records Medical records reviewed: No I reviewed the patient's medical records. Christiano Inquiry Pt receiving controlled substance: No Lab Data Lab results reviewed: Yes I reviewed the patient's lab results.
[2024-01-06 12:43] LABS: UTC Influenza A Antigen Negative (Negative); UTC Influenza B Antigen Negative (Negative); UTC Strep Screen (Rapid) Negative (Negative)
[2024-01-06 13:03] VITALS: BP 131/85; PULSE 106; RESP 22; TEMP 36.9; O2SAT 98
== END 2024-01-06 13:11 | disposition home or self-care (01) ==
PROVIDERS: Emergency Provider Nurse Practitioner Family; PCP Physician Assistant
DX: J20.9 Acute bronchitis, unspecified (principal); R50.9 Fever, unspecified; R07.0 Pain in throat; R05.9 Cough, unspecified; E11.9 Type 2 diabetes mellitus without complications; Z79.4 Long term (current) use of insulin; Z79.84 Long term (current) use of oral hypoglycemic drugs
CPT/HCPCS: 87804; 87880; 99212; 99214; G0463

== ENCOUNTER 2024-01-25 11:35 | Emergency (ER) | payer OTHER, SELFPAY ==
[2024-01-25 11:36] VITALS: BP 150/84; PULSE 80; RESP 20; TEMP 36.5; O2SAT 98; BMI 32.3
--- NOTE | 2024-01-25 12:06 | PC.NURSE ---
DR BOONE AT BEDSIDE
--- NOTE | 2024-01-25 12:18 | PC.NURSE ---
PT TO BATHROOM FOR UA
[2024-01-25 12:25] LABS: Microscopic, Urine URINE MICROSCOPIC (MICROSCOPIC)
[2024-01-25 12:30] LABS: Appearance,Urine SL CLOUDY (Clear); Bilirubin,Urine Negative (Negative); Blood, Urine Negative (Negative); Color,Urine YELLOW (Yellow); Glucose,Urine (UA) 1+ (Negative); Ketones,Urine Negative (Negative); Leukocyte Esterase,Urine 1+ (Negative); Nitrate,Urine Negative (Negative); PH,Urine 5.5 (5.0-8.5); Protein,Urine Negative (Negative); Specific Gravity, Urine >= 1.030 (1.005-1.030); Urobilinogen,Urine 0.2 EU/dl (0.2)
--- NOTE | 2024-01-25 12:41 | HMH.EDGENADL ---
Discharge Plan Disposition Patient Disposition: Home, Self-Care Prescriptions Prescriptions: New prednisone 20 mg tablet 40 mg PO DAILY 5 Days Qty: 10 0RF cefdinir 300 mg capsule 300 mg PO BID 7 Days Qty: 14 0RF No Action albuterol sulfate [Proventil HFA] 90 mcg/actuation HFA aerosol inhaler 1 inh inhalation Q6H PRN (Reason: shortness of breath or wheezing) Qty: 8.5 0RF celecoxib [Celebrex] 200 mg capsule 200 mg PO DAILY Qty: 30 2RF tizanidine [Zanaflex] 4 mg tablet 4 mg PO BID PRN (Reason: muscle spasticity) Qty: 60 0RF lidocaine [Lidoderm] 5 % adhesive patch,medicated 2 patch topical DAILY Qty: 30 0RF Rx Instructions: leave on most painful area for up to 12 hrs (DME) 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 [facility] See Rx Instructions .Route Qty: 1 0RF Rx Instructions: As directed (DME) Dexcom G7 Sensor Device See Rx Instructions .Route Qty: 1 0RF Rx Instructions: As directed Ubrelvy 100 mg tablet 100 mg PO ONCE PRN (Reason: headache) Qty: 16 2RF kkmhuvxtiv-xgdfmnskqmols-uotg 50-325-40 mg tablet 1 tab PO Q6H PRN (Reason: headache) Qty: 30 2RF ergocalciferol (vitamin D2) 1,250 mcg (50,000 unit) capsule 1,250 mcg PO WEEKLY Qty: 14 3RF cholecalciferol (vitamin D3) 50 mcg (2,000 unit) capsule 50 mcg PO DAILY Qty: 90 3RF (DME) blood-glucose meter [Advanced Glucose Meter] [facility] See Rx Instructions .ROUTE .MEDSUPPLY Qty: 1 0RF Rx Instructions: As directed (DME) Advanced Gluc Meter Test Strip Strip See Rx Instructions .ROUTE .MEDSUPPLY Qty: 200 3RF Rx Instructions: FS TID aspirin [Adult Low Dose Aspirin] 81 mg tablet,delayed release (DR/EC) 81 mg PO DAILY Qty: 90 3RF lisinopril 2.5 mg tablet 2.5 mg PO DAILY Qty: 90 3RF atorvastatin 10 mg tablet 10 mg PO DAILY Qty: 90 3RF glipizide 5 mg tablet extended release 24hr 5 mg PO DAILY Qty: 90 3RF metformin 500 mg tablet extended release 24 hr 500 mg PO DAILY Qty: 90 3RF alcohol swabs [Alcohol Pads] Pads, Medicated 1 pad topical TID Qty: 200 3RF (DME) lancets [Accu-Chek Softclix Lancets] Misc See Rx Instructions .Route Qty: 200 3RF Rx Instructions: FS TID ondansetron 4 mg tablet,disintegrating 4 mg PO Q6H PRN (Reason: nausea and vomiting) Qty: 30 0RF insulin aspart U-100 [Novolog U-100 Insulin aspart] 100 unit/mL solution 10 unit SQ BID Qty: 10 2RF (DME) pen needle, diabetic [Comfort EZ Pen [place]] 32 gauge x 5/32 needle See Rx Instructions .Route Qty: 100 2RF Rx Instructions: As directed meclizine 25 mg tablet See Rx Instructions .ROUTE .COMPLEX Qty: 90 0RF Dose Instruction: TAKE 1 TABLET 3 TIMES EACH DAY Rx Instructions: TAKE 1 TABLET 3 TIMES EACH DAY pregabalin [Lyrica] 75 mg capsule 75 mg PO BID Qty: 60 2RF cyanocobalamin (vitamin B-12) 5,000 mcg tablet,disintegrating 5,000 mcg PO DAILY Referrals Follow up/Referrals: Arianna Pierce PA [Primary Care Provider] - See instructions Activity Restrictions/Add. Instructions Additional Instructions/Restrictions: Take prednisone daily for 5 days as prescribed. Keep close watch on your sugars to make sure they are not spiking in the setting of this steroid use acutely. Cefdinir twice daily for 7 days for urinary tract infection. Call your family doctor to establish care for this visit to the emergency department and schedule follow-up within 48 hours to ensure improvement. If you have any worsening of your condition or any other concerning signs or symptoms, return to the emergency department or your primary care doctor for further evaluation. Clinical Impressions Clinical Impression: Pyelonephritis, Lumbar spine pain Instructions Patient Instructions: DI for Low Back Pain Discharge ED Provider: Sukhi Burns General Adult HPI General Chief complaint: Back Pain/Injury Stated complaint: Back Pain Time Seen by Provider: 01/25/24 11:52 Mode of Arrival: Ambulatory Source of Information: Patient Limitations: No Limitations Description of Symptoms (Recalled from ER Triage Doc. by RN): Pt reports mid to low back pain that started last night. She denies recent illness or injury. Decribes pain as crampy in nature, worse when ambulating. Denies BLE pain, numbness, or tingling. She reports associated nausea. Pt took 500mg tylenol and 400mg of motrin 2 hours prior to arrival as well as half of a percocet 5/325 last ngiht with no relief. Pt is a diabetic and reports high sugars as well. History of Present Illness HPI narrative: 33-year-old female history of chronic back pain with multiple disc herniations presenting with back pain. Patient states the back pain started yesterday, 01/23. Has not noticed anything that makes it better or worse other than worsening with changes in position. Feels better while lying still. No fevers or chills, nausea or vomiting, bowel or bladder dysfunction. She states that it hurts so bad she has vomited and feels weak. No history of IV drug abuse, bloodstream infections, or any other concerns. Related Data Home Medications Medication Instructions Recorded Confirmed cyanocobalamin (vitamin B-12) 5,000 mcg PO DAILY SUPPLIMENT 07/22/22 01/18/24 5,000 mcg disintegrating tablet Previous Rx's Medication Instructions Recorded ubrogepant 100 mg tablet (Ubrelvy) 100 mg PO ONCE PRN headache #16 06/29/22 tabs bdxatxkihp-tpayuirpecyeu-ekhcxcra 1 tab PO Q6H PRN headache #30 tabs 07/27/23 50 mg-325 mg-40 mg tablet lidocaine 5 % topical patch 2 patch topical DAILY #30 ea 08/16/23 (Lidoderm) albuterol sulfate 90 mcg/actuation 1 inh inhalation Q6H PRN shortness 09/05/23 aerosol inhaler (Proventil HFA) of breath or wheezing #8.5 grams alcohol swabs (Alcohol Pads) 1 pad topical TID Diabetes #200 ea 11/21/23 aspirin 81 mg tablet,delayed 81 mg PO DAILY #90 tabs 11/21/23 release (Adult Low Dose Aspirin) atorvastatin 10 mg tablet 10 mg PO DAILY #90 tabs 11/21/23 blood sugar diagnostic (Advanced #200 ea 11/21/23 Glucose Meter Test Strips) blood-glucose meter (Advanced #1 ea 11/21/23 Glucose Meter) cholecalciferol (vitamin D3) 50 50 mcg PO DAILY #90 caps 11/21/23 mcg (2,000 unit) capsule ergocalciferol (vitamin D2) 1,250 1,250 mcg PO WEEKLY #14 caps 11/21/23 mcg (50,000 unit) capsule glipizide 5 mg tablet, extended 5 mg PO DAILY #90 tabs 11/21/23 release 24 hr lancets (Accu-Chek Softclix #200 ea 11/21/23 Lancets) lisinopril 2.5 mg tablet 2.5 mg PO DAILY #90 tabs 11/21/23 metformin 500 mg tablet,extended 500 mg PO DAILY #90 tabs 11/21/23 release 24 hr insulin aspart U-100 100 unit/mL 10 unit (0.1 mL) SQ BID #10 mL 11/24/23 subcutaneous solution (Novolog U-100 Insulin aspart) ondansetron 4 mg disintegrating 4 mg PO Q6H PRN nausea and 11/24/23 tablet vomiting #30 tabs pen needle, diabetic 32 gauge x #100 ea 11/24/23 (Comfort EZ Pen [place]) celecoxib 200 mg capsule (Celebrex) 200 mg PO DAILY #30 caps 12/16/23 tizanidine 4 mg tablet (Zanaflex) 4 mg PO BID PRN muscle spasticity 12/16/23 #60 tabs meclizine 25 mg tablet See Rx Instructions .Route 12/20/23 .COMPLEX #90 tabs pregabalin 75 mg capsule (Lyrica) 75 mg PO BID #60 caps 01/17/24 blood-glucose meter,continuous #1 ea 01/18/24 (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) blood-glucose sensor (Dexcom G7 #1 ea 01/18/24 Sensor device) cefdinir 300 mg capsule 300 mg PO BID 7 days #14 caps 01/25/24 prednisone 20 mg tablet 40 mg (2 x 20 mg) PO DAILY 5 days 01/25/24 #10 tabs Allergies Allergy/AdvReac Type Severity Reaction Status Date / Time amoxicillin [From Augmentin] Allergy Mild reaction Verified 01/18/24 13:42 as a child (rash) clavulanic acid Allergy Mild reaction Verified 01/18/24 13:42 [From Augmentin] as a child (rash) sulfisoxazole Allergy Mild REACTION Verified 01/18/24 13:42 [From Pediazole] WHEN SHE WAS A CHILD (rash) azithromycin [From Zithromax] AdvReac Mild NA-NAUSEA/V Verified 01/18/24 13:42 OMITING erythromycin base AdvReac Mild NA-NAUSEA/V Verified 01/18/24 13:42 OMITING amitriptyline AdvReac Verified 01/18/24 13:42 PFSH [facility] Disclaimer: The information contained in this section may have been updated after the patient was seen, as this information can be updated by other users. Medical History Type 2 diabetes mellitus Depression Anxiety B12 deficiency Migraine headache Gestational diabetes Surgical History H/O dilation and curettage Social History Smoking Status: Never smoker second hand exposure: Yes alcohol intake: never substance use type: denies use current occupational status: other Travel in the last 8 weeks: None household members: family housing: house current occupational exposures/hazards: No caffeine: Yes ROS Obtained: Yes All systems reviewed & no additional complaints except as documented Physical Exam General General appearance: alert and in no apparent distress Head Head exam: atraumatic and normocephalic Eye Eye exam: Present normal appearance, PERRL and EOMI ENT ENT exam: Present mucous membranes moist Neck Neck exam: Present normal inspection, full ROM and trachea midline Respiratory Respiratory exam: Absent respiratory distress, wheezes, stridor, accessory muscle use or prolonged expiratory phase Cardiovascular Cardiovascular exam: Present normal rhythm Abdominal Exam Abdominal exam: Present soft; Absent distention, tenderness, guarding, rebound or rigidity Extremities Exam Extremities exam: Absent edema Back Exam Back exam: Present other (Midline spinal tenderness lumbar spine. Associated paraspinal tenderness) Neurological Exam Neurological exam: Present alert, oriented X3, CN II-XII intact and normal gait; Absent motor sensory deficit Skin Skin exam: Present warm and dry; Absent diaphoresis or erythema Medical Decision Making Medical Records Medical records reviewed: Yes I reviewed the patient's medical records. Christiano Inquiry Pt receiving controlled substance: No Christiano was queried for this patient: No Vital Signs: 01/25/24 11:36 Temperature 97.7 F Temperature Source Oral Pulse Rate [Right Radial] 80 Respiratory Rate 20 Blood Pressure [Left Arm] 150/84 H Blood Pressure Mean [Left Arm] 106 Blood Pressure Source [Left Arm] Automatic Cuff Blood Pressure Position [Left Arm] Sitting 02 Sat by Pulse Oximetry 98 Oxygen Delivery Method Room Air Lab Data Lab Results 01/25/24 12:20: Urine Color Yellow, Urine Appearance Sl cloudy, Urine pH 5.5, Ur Specific [place] >= 1.030, Urine Protein Negative, Urine Glucose (UA) 1+, Urine Ketones Negative, Urine Blood Negative, Urine Nitrate Negative, Urine Bilirubin Negative, Urine Urobilinogen 0.2, Ur Leukocyte Esterase 1+ A, Urine RBC 5-10, Urine WBC 20-50, Ur Squamous Epith Cells 5-10, Urine Bacteria 2+, Urine Mucus Trace Orders (Tests/Meds): ED MEDICATIONS Discontinued Medications Generic Name Dose Route Start Last Admin Trade Name Freq PRN Reason Stop Dose Admin Prednisone 40 mg 01/25/24 12:43 01/25/24 12:59 Prednisone 20mg Tab PO 01/25/24 12:44 40 mg ONCE ONE Administration ORDERS Category Date Time Status UA [Urinalysis and Microscopic] Stat Lab 01/25/24 12:20 Completed Urine Culture Stat Micro 01/25/24 12:20 Received Medical Decision Narrative: 33-year-old female history of hypertension, hyperlipidemia, diabetes, chronic back pain with multiple disc herniations presenting with back pain. Patient states the back pain started yesterday, 01/23. Has not noticed anything that makes it better or worse other than worsening with changes in position. Feels better while lying still. No fevers or chills, nausea or vomiting, bowel or bladder dysfunction. She states that it hurts so bad she has vomited and feels weak. No history of IV drug abuse, bloodstream infections, or any other concerns. istory was obtained via conversation with patient and chart review. On arrival, patient hemodynamically stable, alert, oriented x4, appropriate, GCS 15, moving all extremities spontaneously, pupils equal and reactive to light. Full physical exam performed and significant for ambulatory patient who appears to be in pain while walking. Midline lumbar spinal tenderness with paraspinal tenderness associated. No motor deficits or sensory deficits of the lower extremities. No saddle anesthesia. Differential includes neurogenic claudication, disc herniation, conus medullaris, cauda equina, among others. Patient was given prednisone 40 mg for symptomatic management and correction of underlying abnormalities. Workup independently interpreted and significant for bacteria and leukocyte Estrace on UA. MRI of the C, T, L-spine which was performed on 09/29/2023 was personally interpreted and significant for disc herniation at L5-S1 with retropulsion centrally. There is associated with mild stenosis, no cord compression. See radiology read for full review of final results. On reevaluation, patient given cefdinir for home-going. Given patient presentation, workup, history, this most likely represents pyelonephritis versus neuropathic pain in the setting of disc herniation. Because patient without bowel incontinence, urinary incontinence or retention, saddle anesthesia, motor weakness, or other concerning red flag signs or symptoms, deemed appropriate for outpatient management. Because patient at baseline without signs or symptoms of clinical decompensation, deemed appropriate for discharge. Results were relayed to patient who voiced understanding and were agreeable to outpatient management and follow up. At the time of discharge the patient was hemodynamically stable, tolerating PO, and mobilizing appropriately. Critical Care Critical Care Time Critical Care Time: No
[2024-01-25] MEDS: predniSONE 20MG TAB 40 MG PO (12:59)
[2024-01-25 13:08] LABS: Mucus,Urine Trace /lpf; WBC,Urine 20-50 #/hpf (0-3)
[2024-01-25 13:09] LABS: Bacteria,Urine 2+ /lpf
[2024-01-25] MEDS: KETOROLAC 30MG/ML VIAL 15 MG IM (13:36)
[2024-01-25 13:37] VITALS: BP 145/85; PULSE 88; RESP 18; TEMP 36.5; O2SAT 98
--- NOTE | 2024-01-31 09:57 | PC.NURSE ---
reviewed blood culture with , pt dc with cefdinir, NTD
== END 2024-01-25 13:38 | disposition home or self-care (01) ==
PROVIDERS: Emergency Provider Emergency Medicine; PCP Physician Assistant
DX: N12 Tubulo-interstitial nephritis, not specified as acute or chronic (principal); R11.0 Nausea; G89.29 Other chronic pain; R53.1 Weakness; F32.A Depression, unspecified; F41.9 Anxiety disorder, unspecified; G43.909 Migraine, unspecified, not intractable, without status migrainosus; I10 Essential (primary) hypertension; E78.5 Hyperlipidemia, unspecified; E11.9 Type 2 diabetes mellitus without complications; M51.27 Other intervertebral disc displacement, lumbosacral region; R82.71 Bacteriuria
CPT/HCPCS: 81001; 87086; 99283

== ENCOUNTER 2024-04-27 13:50 | Outpatient (CLI) | payer OTHER, SELFPAY ==
--- NOTE | 2024-04-27 13:54 | US_ITS ---
PROCEDURE: US TRANSVAGINAL CLINICAL INDICATION: dysmenorrhea COMPARISON: No exams were available for comparison FINDINGS: Transvaginal sonographic images of the pelvis were obtained. UTERUS: 7.2cm x 3.8 cmx 2.9 cm anteverted with a combined endometrial thickness of 2.1mm. There is a small nabothian cyst in the cervix. It measures 7.1 mm. There is a fluid collection near the fundus of the uterus measuring 5.0 mm x 6.2 mm x 4 mm. Post ablation changes are seen in the myometrium. LEFT OVARY: 3.5 cmx3.1cmx2.7cm with a volume of 15.2ml. There is a follicle in the left ovary measuring 1.6 cm x 2.0 x 1.4 cm. RIGHT OVARY: 2.5cmx 1.5cmx1.2cm with a volume of 2.3ml. Right ovary is posterior to the uterus. Both ovaries are seen and appear normal. Doppler flow to both ovaries are seen. There is a small amount of fluid in the cul-de-sac. IMPRESSION: 1. Anteverted uterus normal in shape and size. The endometrium is thin. There are post ablation changes within the uterus. 2. There is a small 6 mm fluid collection in the fundus of the uterus. 3. Both ovaries are seen and appear normal. There is a 2.0 cm follicle in the left ovary. 4. There is a small amount of fluid in the cul-de-sac. Dictated by: Randolph Mejia MD 04/27/2024 21:14 Randolph Mejia MD in OV 04/27/2024 21:14
== END 2024-04-27 23:59 | disposition home or self-care (01) ==
LOC: RAD 13:51
PROVIDERS: PCP Physician Assistant; Visit Provider Nurse Practitioner Obstetrics & Gynecology
DX: N94.6 Dysmenorrhea, unspecified (principal)
CPT/HCPCS: 76830

== ENCOUNTER 2024-06-14 12:39 | Outpatient (CLI) | payer OTHER, SELFPAY ==
[2024-06-14 13:07] LABS: Basophils # 0.1 K/mm3 (0-0.2); Basophils % 0.6 % (0.1-2.0); Eosinophils # 0.1 K/mm3 (0.0-0.4); Eosinophils % 0.8 % (0.1-12.0); Hematocrit 38.1 % (37.0-47.0); Hemoglobin 13.1 g/dL (12.2-16.2); Lymphocytes % 23.9 % (10-50); Mean Corpuscular HGB Conc 34.4 g/dL (31.8-35.4); Mean Corpuscular Hemoglobin 31.5 pg (27.0-31.2); Mean Corpuscular Volume 91.6 fl (81-99); Monocytes # 0.3 K/mm3 (0.1-1.0); Monocytes % 3.2 % (1.7-9.3); Neutrophils % 71.5 % (37.0-80.0); Platelet Count 242 K/mm3 (142-424); Red Blood Count 4.16 M/mm3 (4.20-5.40); Red Cell Distribution Width 13.5 % (11.5-17.5); White Blood Count 8.4 K/mm3 (4.8-10.8)
[2024-06-14 13:53] LABS: Alanine Aminotransferase 21 U/L (12-78); Albumin Level 3.9 g/dl (3.5-5.0); Albumin/Globulin Ratio 1.2 (1.1-1.8); Alkaline Phosphatase 96 U/L (38-126); Anion Gap 12.6 mEq/L (5-15); Aspartate Amino Transferase 25 U/L (14-36); Bilirubin,Total 0.4 mg/dl (0.2-1.3); Blood Urea Nitrogen 12 mg/dl (7-17); Calcium 9.2 mg/dl (8.4-10.2); Carbon Dioxide 25 mmol/L (22.0-30.0); Chloride 107 mmol/L (98-107); Estimated Glomerular Filt Rate 116 ml/min (>60); GFR (African American) 140 ML/MIN (>60); Globulin 3.2 g/dL (1.3-3.2); Glucose 143 mg/dl (74-100); Potassium 3.6 mmoL/L (3.5-5.1); Sodium 141 mmol/L (136-145); Total Protein,Serum 7.1 g/dl (6.3-8.2)
[2024-06-14 14:15] LABS: HCG,Quantitative < 2 mIU/ml (0-5.42)
== END 2024-06-14 23:59 | disposition home or self-care (01) ==
LOC: LAB 12:40
PROVIDERS: PCP Physician Assistant; Visit Provider Nurse Practitioner Obstetrics & Gynecology
DX: Z34.90 Encounter for supervision of normal pregnancy, unspecified, unspecified trimester (principal); N94.6 Dysmenorrhea, unspecified
CPT/HCPCS: 36415; 80053; 84702; 85025; 86850

== ENCOUNTER 2024-06-19 06:28 | Observation (INO) | payer OTHER, SELFPAY ==
[2024-06-14 11:56] VITALS: BMI 29.9
[2024-06-19] VITALS (22 sets, daily range): BP systolic 98–135; BP diastolic 46–74; PULSE 78–103; RESP 16–18; TEMP 36.1–43; O2SAT 94–100; BMI 29.9
[2024-06-19] MEDS: LACTATED RINGERS 1000ML 1,000 ML 25 ML IV (06:37)
--- NOTE | 2024-06-19 06:58 | P.PNANES_ITS ---
[facility] Disclaimer: The information contained in this section may have been updated after the patient was seen, as this information can be updated by other users. Medical History Hyperlipidemia Hypertension Type 2 diabetes mellitus Depression Anxiety B12 deficiency Migraine headache Gestational diabetes Surgical History History of tonsillectomy and adenoidectomy History of hysteroscopy History of tubal ligation H/O dilation and curettage Family History Other Family history of hypertension Social History (Updated 06/19/24 @ 06:36 by Sherry Hoffmann RN) Smoking Status: Never smoker second hand exposure: Yes alcohol intake: never substance use type: denies use current occupational status: unemployed Travel in the last 8 weeks: None household members: family housing: house current occupational exposures/hazards: No caffeine: Yes [facility] Anesthesia Checklist Patient Identification Patient Identification: Arm Band Structural Data Admitted From: Home Planned Operative Procedure/s: LAVH. possible CARLOS and possible BSO. Consent for Planned Operative Procedure(s) Verified: Yes Verified Documents: Surgical Consent and History and Physical NPO Status Verified Time NPO: 00:00 Additional verifications Patient : No Anesthesia Reactions: No Hx Blood Transfusions: No Blood Transfusion Reaction: No Cephalosporin Allergy: No Previous Colonoscopy: No Airway Assessment Mallampati Score:: Class II C-Spine Mobility Assessed: Yes TMJ Mobility Assessed: Yes Dentition: Good Dentition Neurological Assessment Level of Consciousness: Awake, Alert, Appropriate and Follows Commands Hx Seizures: No Numbness or tingling in extremities: No Anesthesia Plan Anesthesia Risk discussed: Yes ASA Class: II Anesthesia Type: General Preoperative Comments Pre-Operative Comments: Pain with side to side head movement. Diabetic..Insulin prn..takes metforman and ozemptic. Vaginal bleeding.
--- NOTE | 2024-06-19 07:20 | HMH.PHAINT1 ---
Pharmacy Intervention Comments: MEDICATION RECONCILIATION COMPLETED ON PATIENT USING EXTERNAL FILL HISTORY FROM PHARMACY AND LIST FROM PCP OFFICE. -NATY MANCUSO, MACARIOD
--- NOTE | 2024-06-19 07:31 | P.HP_ITS ---
History of Present Illness *Admission Date: 06/19/24 *Reason for visit:: Laparoscopically assisted vaginal hysterectomy, dyspareunia, menorrhagia *History of present illness: She is a 33-year-old lady who has had a previous ablation. She began having severe pain with her periods after years of no periods. I suspected that she had adenomyosis. She also had painful intercourse. After having discussed the risks and benefits we elected to perform a laparoscopic-assisted vaginal hystere ctomy. She has had a previous salpingectomy. [facility] Disclaimer: The information contained in this section may have been updated after the patient was seen, as this information can be updated by other users. Medical History Hyperlipidemia Hypertension Type 2 diabetes mellitus Depression Anxiety B12 deficiency Migraine headache Gestational diabetes Surgical History History of tonsillectomy and adenoidectomy History of hysteroscopy History of tubal ligation H/O dilation and curettage Family History Other Family history of hypertension Social History Smoking Status: Never smoker second hand exposure: Yes alcohol intake: never substance use type: denies use current occupational status: unemployed Travel in the last 8 weeks: None household members: family housing: house current occupational exposures/hazards: No caffeine: Yes Review of Systems Review of Systems Review of systems:: pertinent systems reviewed and negative unless documented below Meds Home Medications and Allergies Home Medications ?Medication ?Instructions ?Recorded ?Confirmed ?Type aspirin 81 mg tablet,delayed 81 mg PO DAILY #90 tabs 11/21/23 06/19/24 Rx release (Adult Low Dose Aspirin) atorvastatin 10 mg tablet 10 mg PO DAILY #90 tabs 11/21/23 06/19/24 Rx blood sugar diagnostic (Advanced #200 ea 11/21/23 06/14/24 Rx Glucose Meter Test Strips) blood-glucose meter (Advanced #1 ea 11/21/23 06/14/24 Rx Glucose Meter) glipizide 5 mg tablet, extended 5 mg PO DAILY #90 tabs 11/21/23 06/19/24 Rx release 24 hr lancets (Accu-Chek Softclix #200 ea 11/21/23 06/14/24 Rx Lancets) lisinopril 2.5 mg tablet 2.5 mg PO DAILY #90 tabs 11/21/23 06/19/24 Rx metformin 500 mg tablet,extended 500 mg PO DAILY #90 tabs 11/21/23 06/19/24 Rx release 24 hr insulin aspart U-100 100 unit/mL 10 unit (0.1 mL) SQ BID #10 mL 11/24/23 06/19/24 Rx subcutaneous solution (Novolog U-100 Insulin aspart) pen needle, diabetic 32 gauge x #100 ea 11/24/23 06/14/24 Rx /32 (Comfort EZ Pen [place]) blood-glucose meter,continuous #1 ea 03/02/24 06/14/24 Rx (Dexcom G7 Eyelet Punch Operator) cholecalciferol (vitamin D3) 50 2,000 unit PO DAILY 04/03/24 06/19/24 History mcg (2,000 unit) tablet (Vitamin D3) semaglutide 0.25 mg or 0.5 mg (2 0.25 mg (0.368 mL) SQ WEEKLY #3 mL 04/03/24 06/19/24 Rx mg/3 mL) subcutaneous pen injector (Ozempic) blood-glucose sensor (Dexcom G7 #3 ea 04/18/24 06/14/24 Rx Sensor device) ergocalciferol (vitamin D2) 1,250 50,000 unit PO WEEKLY 06/11/24 06/19/24 History mcg (50,000 unit) capsule (Vitamin D2) pregabalin 75 mg capsule (Lyrica) 75 mg PO TID #90 caps 06/11/24 06/19/24 Rx lidocaine 5 % topical patch 2 patch topical DAILYP PRN Pain 06/14/24 06/19/24 History (Lidoderm) lpnihdflxa-yqseisiosrymv-pswkiyfo 1 tab PO Q6HP PRN headache 06/19/24 06/19/24 History 50 mg-325 mg-40 mg tablet tizanidine 4 mg tablet (Zanaflex) 4 mg PO BIDP PRN muscle spasticity 06/19/24 06/19/24 History tramadol 50 mg tablet 50 mg PO BIDP PRN Moderate Pain 06/19/24 06/19/24 History (Scale Score 5-6) New Prescriptions to Start Prescriptions: Allergies Allergy/AdvReac Type Severity Reaction Status Date / Time amoxicillin [From Augmentin] Allergy Mild reaction Verified 06/19/24 06:20 as a child (rash) clavulanic acid Allergy Mild reaction Verified 06/19/24 06:20 [From Augmentin] as a child (rash) sulfisoxazole Allergy Mild REACTION Verified 06/19/24 06:20 [From Pediazole] WHEN SHE WAS A CHILD (rash) azithromycin [From Zithromax] AdvReac Mild NA-NAUSEA/V Verified 06/19/24 06:20 OMITING erythromycin base AdvReac Mild NA-NAUSEA/V Verified 06/19/24 06:20 OMITING amitriptyline AdvReac Verified 06/19/24 06:20 Exam Data for Last 24 hours Vital signs and Labs for Last 24 Hours: Temp Pulse Resp BP Pulse Ox O2 Del Method 97.4 F L 87 18 122/72 99 Room Air 06/19/24 06:25 06/19/24 06:25 06/19/24 06:25 06/19/24 06:25 06/19/24 06:25 06/19/24 06:25 Constitutional Constitutional: no acute distress *Routine HEENT Exam Head: Present normocephalic Eye: Present EOMI and PERRL ENT: Present mucous membranes moist *Routine Neck Exam Neck: Present supple; Absent lymphadenopathy *Routine Respiratory Exam Respiratory: Present CTA bilaterally *Routine Cardiovascular Exam Cardiovascular: Present RRR *Routine Abdominal Exam Abdominal: Present soft and normoactive bowel sounds; Absent tenderness *Routine Rectal Exam Rectal:: deferred *Routine Genitalia Exam Genitalia:: deferred *Routine Extremities Exam Extremities: Absent cyanosis, clubbing or edema *Routine Skin Exam Skin: Present warm; Absent rash *Routine Neurological Exam Neurological: Present alert and oriented X3 Assessment and Plan *Assessment and plan (1) Dysmenorrhea: Status: Acute Category: Medical Code(s): N94.6 - Dysmenorrhea, unspecified (2) Dyspareunia in female: Status: Acute Category: Medical Code(s): N94.10 - Unspecified dyspareunia (3) Adenomyosis of uterus: Status: Acute Category: Medical Code(s): N80.03 - Adenomyosis of the uterus Plan She is admitted for laparoscopically assisted vaginal hysterectomy.
[2024-06-19] MEDS: CLINDAMYCIN PHOSPHATE/D5W 900 MG/50 ML PIGGYBACK 100 MG IV ×3 (07:32→23:51)
[2024-06-19] MEDS: LEVOFLOXACIN/D5W 500 MG/100 ML PIGGYBACK 100 MG IV (07:32)
[2024-06-19] MEDS: ROPIVACAINE 0.5% 30ML VIAL 300 MG (07:55)
[2024-06-19] MEDS: LIDOCAINE 1% W/EPI 1:100,000 20ML VIAL 20 ML (07:55)
--- NOTE | 2024-06-19 09:28 | P.PNANES_ITS ---
[facility] Anesthesia Record Part I Anesthesia Record I Intake, IV Amount: 850 Hydration: Adequate Estimated blood loss (mL): 100 Urine output (mL): 50 Blood Products used (#): none Blood Pressure: 124/74 SaO2: 96 Pulse Rate: 103 Airway Patency: Patent Respiratory Rate: 18 Temperature: 99.6 F Patient is:: Drowsy and Stable Stable to PACU at:: 09:20 Comments:: Bl00d sugar in [id number].
[2024-06-19] MEDS: MORPHINE 2MG/ML SYRINGE 1 MG IV ×2 (09:30→09:40)
[2024-06-19 09:34] LABS: POC Glucose,Bedside 202 (70-110)
[2024-06-19 09:37] LABS: Microscopic,Cath URINE MICROSCOPIC (MICROSCOPIC)
[2024-06-19] MEDS: KETOROLAC 30MG/ML VIAL 30 MG IV ×3 (09:50→22:44)
[2024-06-19 09:59] LABS: Bilirubin,Cath Negative (Negative); Blood, Urine/Cath TRACE-I (Negative); Color,Urine/Cath YELLOW (Yellow); Glucose,Urine/Cath (UA) Negative (Negative); Ketones,Urine/Cath Negative (Negative); Leukocyte Esterase,Cath Negative (Negative); Nitrate,Cath Negative (Negative); PH,Urine/Cath 5.5 (5.0-8.5); Protein,Urine/Cath 1+ (Negative); Specific Gravity, Urine/Cath >= 1.030 (1.005-1.030); Urobilinogen,Cath 0.2 EU/dl (0.2)
[2024-06-19 10:01] LABS: Appearance,Urine/Cath Slightly Cloudy (Clear)
[2024-06-19] MEDS: HYDROMORPHONE 2MG/ML SYRINGE 0.5 MG IV (10:01)
[2024-06-19] MEDS: ONDANSETRON 4MG/2ML VIAL 4 MG IV (10:05)
[2024-06-19 10:08] LABS: POC Glucose,Bedside 102 (70-110)
[2024-06-19 10:13] LABS: Bacteria,Urine/Cath 1+ /lpf
[2024-06-19 10:17] LABS: Mucus,Urine/Cath Trace /lpf
[2024-06-19 10:24] LABS: Amorphous Sediment,Ur/Cath Trace /lpf
[2024-06-19] MEDS: LACTATED RINGERS 1000ML 1,000 ML 125 ML IV (10:42)
[2024-06-19] MEDS: PROMETHAZINE HCL 25MG/ML 1ML VIAL 12.5 MG IV (10:42)
[2024-06-19] MEDS: SODIUM CHLORIDE 0.9% 25ML BAG 25 ML IV (10:43)
--- NOTE | 2024-06-19 11:24 | EXP.OP.NOTE ---
Date of procedure: 06/19/24 Pre-op Diagnosis:: Dysmenorrhea, dyspareunia, adenomyosis Post-op Diagnosis:: Dysmenorrhea, dyspareunia, adenomyosis, right ovarian cyst Procedure performed:: Laparoscopically assisted vaginal hysterectomy, drainage of ovarian cyst test Surgeon:: Randolph Mejia MD Show Design Supervisor(s):: Dr. Cowan HEALTH INFORMATION DIRECTOR:: Adryan Saldana Anesthesia: GETA Estimated blood loss (mL): 100 Clinical Note:: She is a 33-year-old lady who who complains of dyspareunia as well as severe dysmenorrhea. She had a previous ablation and I suspected that she may have had adenomyosis. She had a previous bilateral salpingectomy. After having discussed the risk and benefits she elected to have a laparoscopically assisted vaginal hysterectomy. Operative findings:: She had an anteverted small uterus. Both ovaries were seen. The right ovary had a 4 cm simple cyst filled with straw-colored fluid. There appeared to be bilateral pelvic congestion with prominent vascularity. The rest of the pelvis appeared normal. The upper abdomen appeared normal. Operative note:: She was taken to the operating room where general anesthesia was found be adequate. She was prepped and draped in normal sterile fashion in the semilithotomy position. A weighted speculum was placed in the vagina and the anterior lip of the cervix was grasped with a tenaculum. An acorn uterine manipulator was then placed within the cervical os. I then changed gloves. I injected 10 cc of 0.5% ropivacaine around the umbilicus and made a small incision within the umbilicus. I inserted a Veress needle into the abdominal cavity. The abdominal cavity was then insufflated with carbon dioxide gas to a pressure of 20 mmHg. I then inserted an 11 mm trocar under direct vision. I injected through and through the pubic hairline, made a small incision here and inserted a 5 mm trocar under direct vision. I identified the inferior epigastric arteries on the left side, went lateral to these and injected through and through. I then made a small incision and inserted an 11 mm trocar under direct vision. A similar 11 mm trocar was placed on the right side. The left round ligament was then grasped and cut through with harmonic scalpel. This was followed by opening up the peritoneum anteriorly to the midline. This is followed by cutting through the left utero-ovarian ligament. I used Harmonic scalpel on the coagulation mode. I then took down the posterior aspect of the broad ligament to the level of the uterosacral ligament. I then skeletonized the uterine arteries on the left side and placed hemoclips on these. Using the harmonic scalpel on coagulation mode adjacent to the cervix I then took down these uterine arteries. I then further freed up the bladder anteriorly and laterally on the left side. I then turned my attention to the right side where I grasped the right round ligament. I then cut through the right round ligament. I then took down the anterior peritoneum to the midline joining up with the other side. I further dissected the bladder off. The posterior aspect of the right broad ligament was then taken down with harmonic scalpel. I skeletonized the uterine arteries on the right side. I applied hemoclips to the uterine arteries and staying adjacent to the cervix on the right side I took down the uterine arteries with harmonic scalpel on coagulation mode. I further freed up the bladder. We then assured hemostasis. We then turned our attention to the vaginal portion of the surgery. The patient was placed in the lithotomy position and a weighted speculum was placed in the vagina. The anterior and posterior lip of the cervix were grasped with Ramirez tenacula. I then injected 20 cc of 1% Xylocaine with epinephrine circumferentially about the cervix. I then circumscribed the cervix. I opened up in the posterior cul-de-sac using Snyder scissors. I then placed a long weighted speculum through the defect. The left uterosacral ligament was then clamped cut and suture-ligated and tagged. This was followed by the left cardinal ligament which was clamped cut and suture-ligated. I then clamped cut and suture-ligated and tagged the right uterosacral ligament. This was followed by the right cardinal ligament which was clamped cut and suture-ligated. I then grasped the anterior vaginal mucosa and using both sharp and blunt dissection dissected off the bladder. I then opened sharply into the anterior cul-de-sac. A House retractor was placed through this defect. Both left and right uterine arteries were then clamped cut and suture-ligated. This freed up the uterus and it was removed through the vagina. Then inserted a short weighted speculum. Posterior cuff was then closed using running 2-0 Vicryl suture in a locked fashion. I then placed a Bautista suture using 0 PDS. I passed it through the vagina and the peritoneum and then through the left perirectal fascia. I then plicated across the posterior peritoneum and through the right perirectal fascia. This was then passed through the peritoneum and vagina and left to be tied at the end. I then grasped the anterior peritoneum and using 2-0 PDS suture in a pursestring fashion I closed the peritoneum. The vaginal cuff was then closed using running 0 Vicryl suture in a locked fashion from left to right from anterior to posterior. A Marrero cath was then placed in the bladder. Clear urine was seen to flow. I then changed gloves and once again insufflated the abdominal cavity with carbon dioxide gas. Hemostasis was once again assured and I rinsed the pelvis. I then sprayed Surgicel powder all around the pelvis. I injected approximately 20 cc of 0.5% ropivacaine into the pelvis. I let the gas out of the abdomen and once again hemostasis was assured. The secondary trochars were then removed under direct vision and the sites were hemostatic. The primary trocar and camera were removed together. No bowel was seen to follow. The 11 mm trocar sites were closed deeply with [id number] 2-0 Vicryl suture followed by running subcuticular 4-0 Monocryl suture. 5 mm trocar site was closed with subcuticular 4-0 Monocryl suture. Sterile dressings were applied. The patient tolerated procedure well and was taken to the recovery room in excellent condition. All sponge instrument and needle counts were correct. The estimated blood loss was approximately 100 cc. Condition: stable Disposition: PACU Specimens:: Uterus Complications:: None
[2024-06-19] MEDS: ACETAMINOPHEN 500MG TAB 1000 MG PO ×2 (12:38→18:45)
[2024-06-19] MEDS: PREGABALIN 25MG CAPSULE 75 MG PO ×2 (12:38→21:15)
[2024-06-19 12:52] LABS: POC Glucose,Bedside 148 (70-110)
[2024-06-19] MEDS: OXYCODONE 5MG IMMEDIATE RELEASE TABLET 10 MG PO ×2 (13:04→18:51)
[2024-06-19] MEDS: SIMETHICONE 80MG CHEWABLE TABLET 160 MG PO (17:10)
--- NOTE | 2024-06-19 18:22 | PC.NURSE ---
Pt assisted up to bathroom for first time since d/c of maharaj catheter. Reports slight dizziness upon first standing, this quickly resolved and pt ambulating to bathroom with standby assist x2. Urine specimen hat placed in toilet to measure first few voidings. Voided 100mls of blood tinged urine. Partial bed linen change performed and trash emptied. Pt tolerated regular diet for supper (chicken tenders and fries). Her remains at bs attentive to her needs and will be spending the night.
--- NOTE | 2024-06-19 20:10 | PC.NURSE ---
Patient went downstairs and patient mother now at bedside. Discussed with patient circumstances surrounding her bruise on her left eye. 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 Patient denies feeling unsafe at home.
[2024-06-19] MEDS: HYDROMORPHONE 2MG/ML SYRINGE 1 MG IV (21:08)
[2024-06-19] MEDS: humaLOG 100 UNITS/ML 10ML VIAL (SSI) 10 UNIT SQ (21:20)
[2024-06-19 21:28] LABS: POC Glucose,Bedside 182 (70-110)
[2024-06-20] MEDS: LACTATED RINGERS 1000ML 1,000 ML 125 ML IV ×2 (01:08→08:49)
[2024-06-20] MEDS: ACETAMINOPHEN 500MG TAB 1000 MG PO ×3 (01:08→12:26)
[2024-06-20] MEDS: HYDROMORPHONE 2MG/ML SYRINGE 1 MG IV (01:11)
[2024-06-20 04:15] VITALS: BP 107/54; PULSE 83; RESP 17; TEMP 36.7; O2SAT 96
--- NOTE | 2024-06-20 04:15 | PC.NURSE ---
Patient awake and oriented x4 and lying in bed watching TV. Regular heart rate and rhythm auscultated over left apical site. Lungs auscultated clear bilaterally and throughout with no signs of labored breathing. Bowel sounds active in all four quadrants and patient passing flatus. Reports feels bladder is emptying each time she voids. Reports scant amount of vaginal bleeding when she wipes. States current pain medication regimen of scheduled Toradol and PRN Dilaudid seems to be helping the most. Lap sites remain covered with dressing and tape. The most inferior site right above her pubic bone has a 1 cm sized spot of serosanguineous drainage. Skin remains clean, dry, and intact surrounding sites.
[2024-06-20] MEDS: KETOROLAC 30MG/ML VIAL 30 MG IV ×3 (04:18→16:52)
--- NOTE | 2024-06-20 06:30 | PC.NURSE ---
Patient assisted to bathroom to void. Reports pain increased to 6/10, as cramping/muscular soreness in lower abdomen. Patient declines use of ice pack. Discussed pain medication options and patient would like to try Oxycodone.
[2024-06-20] MEDS: OXYCODONE 5MG IMMEDIATE RELEASE TABLET 10 MG PO (06:36)
[2024-06-20 06:55] LABS: Eosinophils % 0.1 % (0.1-12.0); Hematocrit 33.4 % (37.0-47.0); Lymphocytes # 1.3 K/mm3 (0.7-4.5); Mean Corpuscular HGB Conc 32.8 g/dL (31.8-35.4); Mean Corpuscular Hemoglobin 30.9 pg (27.0-31.2); Mean Corpuscular Volume 94.1 fl (81-99); Mean Platelet Volume 8.2 fl (7.4-10.4); Monocytes # 0.4 K/mm3 (0.1-1.0); Monocytes % 4.7 % (1.7-9.3); Neutrophils # 6.7 K/mm3 (1.8-7.8); Neutrophils % 79.2 % (37.0-80.0); Platelet Count 201 K/mm3 (142-424); Red Blood Count 3.54 M/mm3 (4.20-5.40); Red Cell Distribution Width 13.9 % (11.5-17.5); White Blood Count 8.4 K/mm3 (4.8-10.8)
[2024-06-20 07:07] LABS: Chloride 108 mmol/L (98-107); Potassium 4.1 mmoL/L (3.5-5.1); Sodium 138 mmol/L (136-145)
[2024-06-20 07:10] LABS: Blood Urea Nitrogen 8 mg/dl (7-17); Creatinine Clearance Estimated 158 mL/min (50-200); Estimated Glomerular Filt Rate 116 ml/min (>60); GFR (African American) 140 ML/MIN (>60)
[2024-06-20 07:11] LABS: Anion Gap 8.1 mEq/L (5-15); Calcium 8.4 mg/dl (8.4-10.2); Carbon Dioxide 26 mmol/L (22.0-30.0); Glucose 172 mg/dl (74-100)
--- NOTE | 2024-06-20 08:22 | EXP.ANES.II ---
[facility] Anesthesia Record Part II Anesthesia Record Part II Discharge Time: 10:10 Destination: Obstetric PACU nurse assessment reviewed?: Yes Patient Condition:: Good Anesthesia Complications:: None Swallowing reflex intact?: Yes Airway Patency: Patent Cyanosis?: No Blood Pressure: 110/64 SaO2: 96 Respiratory Rate: 18 Pulse Rate: 86 Temperature: 97.5 F Mental Status: Alert & Oriented Pain level:: 4 Nausea and/or vomitting:: None Intake, IV Amount: 0 Hydration: Adequate
[2024-06-20 08:23] VITALS: BP 110/64; PULSE 86; RESP 18; TEMP 36.4; O2SAT 96
[2024-06-20 08:45] VITALS: BP 103/58; PULSE 71; RESP 18; TEMP 36.6; O2SAT 97
[2024-06-20] MEDS: GLIPIZIDE 5 MG PO (08:46)
[2024-06-20] MEDS: METFORMIN 500MG TABLET 500 MG PO (08:46)
[2024-06-20] MEDS: LISINOPRIL 2.5MG TABLET 2.5 MG PO (08:46)
[2024-06-20] MEDS: PREGABALIN 25MG CAPSULE 75 MG PO ×2 (08:46→13:04)
[2024-06-20] MEDS: HYDROMORPHONE HCL 2 MG TABLET PO ×3 (08:47→16:52)
[2024-06-20 16:44] VITALS: BP 102/62; PULSE 80; RESP 16; TEMP 36.9; O2SAT 97
--- NOTE | 2024-06-20 16:44 | PC.NURSE ---
Pt. being discharged, reassessment completed, No changes from AM assessment. Incision sites x4 T&T remains unchanged. Pt. rates pain at 7/10, medication offered pt. v/u and accepts. Pt. denies needs, reports I am just ready to go home. Nurse v/u and reports she is waiting for MD to place discharge order. Pt. v/u.
--- NOTE | 2024-06-20 16:48 | EXP.DC.SUM ---
General Admission date:: 06/19/24 Discharge date: 06/20/24 HPI HPI HPI: She is a 33-year-old lady who has had a previous ablation. She began having severe pain with her periods after years of no periods. I suspected that she had adenomyosis. She also had painful intercourse. After having discussed the risks and benefits we elected to perform a laparoscopic-assisted vaginal hysterectomy. She has had a previous salpingectomy. Hospital Course Hospital Course Hospital Course: On June 19, 2024 she underwent a laparoscopic-assisted vaginal hysterectomy. She has had a previous bilateral salpingectomy. Her ovaries were left in place. She has done well postoperatively and has remained afebrile without her hospitalization. We had some pain control issues and she required hydromorphone for pain. She was receiving Toradol, hydromorphone and Tylenol. She takes tramadol every night at bedtime. She is discharged home to follow-up with me in approximately 2 weeks time. She will continue with her home medications. She was given a prescription for Toradol 10 mg to take 4 times daily as needed for pain. She was given a prescription for hydromorphone 2 mg number 20 tablets to take every 6 hours as needed for pain. She was given the usual instructions with effect to limiting her activity, driving and sexual activity. Her condition on discharge was stable and improved. Exam Data for Last 24 hours Vital signs and Labs for Last 24 Hours: Temp Pulse Resp BP Pulse Ox O2 Del Method 97.9 F 71 18 103/58 L 97 Room Air 06/20/24 08:45 06/20/24 08:45 06/20/24 08:45 06/20/24 08:45 06/20/24 08:45 06/20/24 15:15 Laboratory Results - last 24 hr 06/19/24 21:17: POC Glucose 182 H 06/20/24 06:28: WBC 8.4, RBC 3.54 L, Hgb 11.0 L, Hct 33.4 L, MCV 94.1, MCH 30.9, MCHC 32.8, RDW 13.9, Plt Count 201, MPV 8.2, Neut % (Auto) 79.2, Lymph % (Auto) 16.0, [place] % (Auto) 4.7, Eos % (Auto) 0.1, Baso % (Auto) 0.0 L, Neut # (Auto) 6.7, Lymph # (Auto) 1.3, [place] # (Auto) 0.4, Eos # (Auto) 0.0, Baso # (Auto) 0.0, Sodium 138, Potassium 4.1, Chloride 108 H, Carbon Dioxide 26, Anion Gap 8.1, BUN 8, Creatinine 0.60, Estimated Creat Clear 158, Estimated GFR 116, Est GFR ( Amer) 140, Glucose 172 H, Calcium 8.4 I & O for Last 24 hours: Intake & Output 06/18/24 06/19/24 06/20/24 06/21/24 11:59 11:59 11:59 11:59 Intake Total 850 / 850 2343 / 2343 Output Total 450 / 450 2300 / 2300 Balance 400 / 400 43 / 43 Weight 164 lb Constitutional Constitutional: no acute distress *Routine HEENT Exam Head: Present normocephalic *Routine Respiratory Exam Respiratory: Present normal respiratory effort, able to speak in complete sentences and symmetric chest movement; Absent accessory muscle use *Routine Cardiovascular Exam Cardiovascular: Present RRR *Routine Abdominal Exam Abdominal: Present soft, normoactive bowel sounds and tenderness Comments: Her incisions are clean and dry and she has some tenderness but no peritoneal signs. Results Data Completed and Pending Labs on day of discharge: Labs from last 24 hours 06/20/24 06/19/24 06:28 21:17 WBC 8.4 RBC 3.54 L Hgb 11.0 L Hct 33.4 L MCV 94.1 MCH 30.9 MCHC 32.8 RDW 13.9 Plt Count 201 MPV 8.2 Neut % (Auto) 79.2 Lymph % (Auto) 16.0 [place] % (Auto) 4.7 Eos % (Auto) 0.1 Baso % (Auto) 0.0 L Neut # (Auto) 6.7 Lymph # (Auto) 1.3 [place] # (Auto) 0.4 Eos # (Auto) 0.0 Baso # (Auto) 0.0 Sodium 138 Potassium 4.1 Chloride 108 H Carbon Dioxide 26 Anion Gap 8.1 BUN 8 Creatinine 0.60 Estimated Creat Clear 158 Estimated GFR 116 Est GFR ( Amer) 140 Glucose 172 H POC Glucose 182 H Calcium 8.4 DS: Diagnosis Discharge Diagnosis (1) Dysmenorrhea: Status: Acute Code(s): N94.6 - Dysmenorrhea, unspecified (2) Dyspareunia in female: Status: Acute Code(s): N94.10 - Unspecified dyspareunia (3) Adenomyosis of uterus: Status: Acute Code(s): N80.03 - Adenomyosis of the uterus Meds Home Medications and Allergies Home Medications ?Medication ?Instructions ?Recorded ?Confirmed ?Type aspirin 81 mg tablet,delayed 81 mg PO DAILY #90 tabs 11/21/23 06/19/24 Rx release (Adult Low Dose Aspirin) atorvastatin 10 mg tablet 10 mg PO DAILY #90 tabs 11/21/23 06/19/24 Rx blood sugar diagnostic (Advanced #200 ea 11/21/23 06/14/24 Rx Glucose Meter Test Strips) blood-glucose meter (Advanced #1 ea 11/21/23 06/14/24 Rx Glucose Meter) glipizide 5 mg tablet, extended 5 mg PO DAILY #90 tabs 11/21/23 06/19/24 Rx release 24 hr lancets (Accu-Chek Softclix #200 ea 11/21/23 06/14/24 Rx Lancets) lisinopril 2.5 mg tablet 2.5 mg PO DAILY #90 tabs 11/21/23 06/19/24 Rx metformin 500 mg tablet,extended 500 mg PO DAILY #90 tabs 11/21/23 06/19/24 Rx release 24 hr insulin aspart U-100 100 unit/mL 10 unit (0.1 mL) SQ BID #10 mL 11/24/23 06/19/24 Rx subcutaneous solution (Novolog U-100 Insulin aspart) pen needle, diabetic 32 gauge x #100 ea 11/24/23 06/14/24 Rx 5/32 (Comfort EZ Pen Vanduser) blood-glucose meter,continuous #1 ea 03/02/24 06/14/24 Rx (Dexcom G7 Data Programmer) cholecalciferol (vitamin D3) 50 2,000 unit PO DAILY 04/03/24 06/19/24 History mcg (2,000 unit) tablet (Vitamin D3) semaglutide 0.25 mg or 0.5 mg (2 0.25 mg (0.368 mL) SQ WEEKLY #3 mL 04/03/24 06/19/24 Rx mg/3 mL) subcutaneous pen injector (Ozempic) blood-glucose sensor (Dexcom G7 #3 ea 04/18/24 06/14/24 Rx Sensor device) ergocalciferol (vitamin D2) 1,250 50,000 unit PO WEEKLY 06/11/24 06/19/24 History mcg (50,000 unit) capsule (Vitamin D2) pregabalin 75 mg capsule (Lyrica) 75 mg PO TID #90 caps 06/11/24 06/19/24 Rx lidocaine 5 % topical patch 2 patch topical DAILYP PRN Pain 06/14/24 06/19/24 History (Lidoderm) qidrtnezar-agklxyospdztz-qxuzslov 1 tab PO Q6HP PRN headache 06/19/24 06/19/24 History 50 mg-325 mg-40 mg tablet tizanidine 4 mg tablet (Zanaflex) 4 mg PO BIDP PRN muscle spasticity 06/19/24 06/19/24 History tramadol 50 mg tablet 50 mg PO BIDP PRN Moderate Pain 06/19/24 06/19/24 History (Scale Score 5-6) hydromorphone 2 mg tablet 2 mg PO Q6H PRN severe pain. #20 06/20/24 Rx tabs ketorolac 10 mg tablet 10 mg PO Q6H #20 tabs 06/20/24 Rx New Prescriptions to Start Prescriptions: hydromorphone Randolph Mejia ketorolac Randolph Mejia Allergies Allergy/AdvReac Type Severity Reaction Status Date / Time amoxicillin [From Augmentin] Allergy Mild reaction Verified 06/19/24 06:20 as a child (rash) clavulanic acid Allergy Mild reaction Verified 06/19/24 06:20 [From Augmentin] as a child (rash) sulfisoxazole Allergy Mild REACTION Verified 06/19/24 06:20 [From Pediazole] WHEN SHE WAS A CHILD (rash) azithromycin [From Zithromax] AdvReac Mild NA-NAUSEA/V Verified 06/19/24 06:20 OMITING erythromycin base AdvReac Mild NA-NAUSEA/V Verified 06/19/24 06:20 OMITING amitriptyline AdvReac Verified 06/19/24 06:20 Discharge Plan Disposition Patient Disposition: Home, Self-Care Follow up Plan Follow up with: Randolph Mejia MD [Staff Physician] - 08/20/24 3:00 pm Prescriptions/Medication Reconciliation: New hydromorphone 2 mg Tablet 2 mg PO Q6H PRN (Reason: severe pain.) Qty: 20 0RF ketorolac 10 mg Tablet 10 mg PO Q6H Qty: 20 0RF Continued cholecalciferol (vitamin D3) [Vitamin D3] 50 mcg (2,000 unit) tablet 2,000 unit PO DAILY Patient Comments: TAKE 1 TABLET 1 TIME EACH DAY Ozempic 0.25 mg or 0.5 mg (2 mg/3 mL) pen injector 0.25 mg SQ WEEKLY Qty: 3 2RF ergocalciferol (vitamin D2) [Vitamin D2] 1,250 mcg (50,000 unit) capsule 50,000 unit PO WEEKLY Patient Comments: TAKE 1 CAPSULE 1 TIME EACH WEEK pregabalin [Lyrica] 75 mg capsule 75 mg PO TID Qty: 90 2RF (DME) blood-glucose meter [Advanced Glucose Meter] Misc See Rx Instructions .ROUTE .MEDSUPPLY Qty: 1 0RF Rx Instructions: As directed (DME) Advanced Gluc Meter Test Strip Strip See Rx Instructions .ROUTE .MEDSUPPLY Qty: 200 3RF Rx Instructions: FS TID aspirin [Adult Low Dose Aspirin] 81 mg tablet,delayed release (DR/EC) 81 mg PO DAILY Qty: 90 3RF lisinopril 2.5 mg tablet 2.5 mg PO DAILY Qty: 90 3RF atorvastatin 10 mg tablet 10 mg PO DAILY Qty: 90 3RF glipizide 5 mg tablet extended release 24hr 5 mg PO DAILY Qty: 90 3RF metformin 500 mg tablet extended release 24 hr 500 mg PO DAILY Qty: 90 3RF (DME) lancets [Accu-Chek Softclix Lancets] Misc See Rx Instructions .Route Qty: 200 3RF Rx Instructions: FS TID insulin aspart U-100 [Novolog U-100 Insulin aspart] 100 unit/mL solution 10 unit SQ BID Qty: 10 2RF (DME) pen needle, diabetic [Comfort EZ Pen Vanduser] 32 gauge x 5/32 needle See Rx Instructions .Route Qty: 100 2RF Rx Instructions: As directed (DME) Dexcom G7 Data Programmer Misc See Rx Instructions .Route Qty: 1 0RF Rx Instructions: As directed (DME) Dexcom G7 Sensor Device See Rx Instructions .ROUTE .COMPLEX Qty: 3 5RF Dose Instruction: USE TO MONITOR BLOOD SUGAR DIRECTED. REPLACE EVERY 10 DAYS. Rx Instructions: USE TO MONITOR BLOOD SUGAR DIRECTED. REPLACE EVERY 10 DAYS. lidocaine [Lidoderm] 5 % adhesive patch,medicated 2 patch topical DAILYP PRN (Reason: Pain) Rx Instructions: leave on most painful area for up to 12 hrs tizanidine [Zanaflex] 4 mg tablet 4 mg PO BIDP PRN (Reason: muscle spasticity) tramadol 50 mg tablet 50 mg PO BIDP PRN (Reason: Moderate Pain (Scale Score 5-6)) ajzpvwbzvh-xgoffzermknqx-bzaa 50-325-40 mg tablet 1 tab PO Q6HP PRN (Reason: headache) Problem Reconciliation Problems Reviewed?: Yes Patient Discharge Instructions ACTIVITY: No heavy lifting DIET: continue same diet and diabetic diet Additional Instructions: *Nothing in the vagina for 6 weeks* *No heavy lifting* *No strenuous activity* *No tub baths until okay'd by MD. Patient Instructions: How to Care for a Surgical Wound, DI for Hysterectomy, Surgical Site Infection, DI for Postoperative Pain Print Language: Lithuanian Providers Primary Care Provider: Arianna Pierce Admit Provider: Randolph Mejia Attending Provider: Randolph Mejia
[2024-06-20] MEDS: SODIUM CHLORIDE 0.9% 10ML FLUSH SYRINGE 10 ML IV (16:52)
--- NOTE | 2024-06-20 17:15 | PC.NURSE ---
Discharge education provided to pt. and family as pt. has had narcotic pain medication. Questions encouraged and answered. Both family and pt. V/U. Spouse signed discharge paperwork.
--- NOTE | 2024-06-20 17:22 | PC.NURSE ---
Pt. left unit via wheelchair to private vehicle with spouse driving.
== END 2024-06-20 17:22 | disposition home or self-care (01) ==
LOC: OB 06:28
PROVIDERS: Admitting Provider Nurse Practitioner Obstetrics & Gynecology; PCP Physician Assistant; Visit Provider Nurse Practitioner Obstetrics & Gynecology
PROC: 0UT9FZZ Resection of Uterus, Via Natural or Artificial Opening With Percutaneous Endoscopic Assistance (ICD-10-PCS; CPT 58550; principal; 2024-06-19 07:30)
DX: N94.19 Other specified dyspareunia (principal); N94.6 Dysmenorrhea, unspecified; E11.9 Type 2 diabetes mellitus without complications; Z79.4 Long term (current) use of insulin; N73.6 Female pelvic peritoneal adhesions (postinfective)
CPT/HCPCS: 58550; 36415; 80048; 81001; 82962; 85025; 94761; 96374; J3490; G0283; G0378; J1100; J1170; J1885; J1956; J2250; J2270; J2405; J2550; J3010; J7120

== ENCOUNTER 2024-06-26 15:18 | Outpatient (CLI) | payer OTHER, SELFPAY ==
[2024-06-26 16:46] LABS: Basophils # 0.1 K/mm3 (0-0.2); Basophils % 0.5 % (0.1-2.0); Eosinophils # 0.4 K/mm3 (0.0-0.4); Eosinophils % 3.3 % (0.1-12.0); Hematocrit 42.4 % (37.0-47.0); Lymphocytes # 2.7 K/mm3 (0.7-4.5); Lymphocytes % 22.2 % (10-50); Mean Corpuscular Hemoglobin 31.3 pg (27.0-31.2); Mean Corpuscular Volume 94.9 fl (81-99); Mean Platelet Volume 8.2 fl (7.4-10.4); Monocytes # 0.5 K/mm3 (0.1-1.0); Neutrophils # 8.4 K/mm3 (1.8-7.8); Platelet Count 293 K/mm3 (142-424); Red Blood Count 4.46 M/mm3 (4.20-5.40); Red Cell Distribution Width 14.1 % (11.5-17.5); White Blood Count 11.9 K/mm3 (4.8-10.8)
[2024-06-26 17:06] LABS: Anion Gap 12.9 mEq/L (5-15); Blood Urea Nitrogen 21 mg/dl (7-17); Calcium 9.4 mg/dl (8.4-10.2); Carbon Dioxide 24 mmol/L (22.0-30.0); Chloride 104 mmol/L (98-107); Estimated Glomerular Filt Rate 97 ml/min (>60); GFR (African American) 117 ML/MIN (>60); Glucose 155 mg/dl (74-100); Potassium 4.9 mmoL/L (3.5-5.1); Sodium 136 mmol/L (136-145)
== END 2024-06-26 23:59 | disposition home or self-care (01) ==
LOC: LAB 15:18
PROVIDERS: PCP Physician Assistant; Visit Provider Nurse Practitioner Obstetrics & Gynecology
DX: R53.83 Other fatigue (principal)
CPT/HCPCS: 36415; 80048; 85025

== ENCOUNTER 2024-12-06 12:57 | Emergency (ER) | payer OTHER, SELFPAY ==
--- NOTE | 2024-12-06 12:59 | XR_ITS ---
PROCEDURE INFORMATION: Exam: XR Sacrum and Coccyx, 2 or More Views Exam date and time: 12/06/2024 1:03 PM Age: 34 years old Clinical indication: Pain in coccyx area; Additional info: Fall TECHNIQUE: Imaging protocol: XR of the sacrum and coccyx, 2 or more views. COMPARISON: CR HIPCMRT XR hip RT 2-3V w/pelvis 12/05/2018 12:12 PM FINDINGS: Bones/joints: There is no evidence of fracture. Soft tissues: Normal. Other findings: There are bilateral pelvic surgical clips since the comparison study. IMPRESSION: 1. There are bilateral pelvic surgical clips since the comparison study. 2. There is no evidence of fracture. RECOMMENDATION: Persistent symptoms may warrant CT or MRI.
[2024-12-06 13:15] VITALS: BP 128/74; PULSE 74; RESP 18; TEMP 36.5; O2SAT 99; BMI 30.3
--- NOTE | 2024-12-06 13:23 | ED_ITS ---
Discharge Plan Disposition Patient Disposition: Home, Self-Care Condition: Good Prescriptions Prescriptions: New cyclobenzaprine 10 mg Tablet 10 mg PO BID PRN (Reason: Muscle Spasm) Qty: 20 0RF ibuprofen [IBU] 800 mg tablet 800 mg PO Q8HP PRN (Reason: Moderate Pain) Qty: 30 0RF No Action cholecalciferol (vitamin D3) [Vitamin D3] 50 mcg (2,000 unit) tablet 2,000 unit PO DAILY Patient Comments: TAKE 1 TABLET 1 TIME EACH DAY Ozempic 0.25 mg or 0.5 mg (2 mg/3 mL) pen injector 0.25 mg SQ WEEKLY Qty: 3 2RF ergocalciferol (vitamin D2) [Vitamin D2] 1,250 mcg (50,000 unit) capsule 50,000 unit PO WEEKLY Patient Comments: TAKE 1 CAPSULE 1 TIME EACH WEEK pregabalin [Lyrica] 75 mg capsule 75 mg PO TID Qty: 90 2RF ondansetron 4 mg tablet,disintegrating 4 mg PO Q6H PRN (Reason: nausea and vomiting) Qty: 20 1RF oxycodone 5 mg tablet 5 mg PO Q8H PRN (Reason: pain) Qty: 14 0RF (DME) blood-glucose meter [Advanced Glucose Meter] Misc See Rx Instructions .ROUTE .MEDSUPPLY Qty: 1 0RF Rx Instructions: As directed (DME) Advanced Gluc Meter Test Strip Strip See Rx Instructions .ROUTE .MEDSUPPLY Qty: 200 3RF Rx Instructions: FS TID aspirin [Adult Low Dose Aspirin] 81 mg tablet,delayed release (DR/EC) 81 mg PO DAILY Qty: 90 3RF lisinopril 2.5 mg tablet 2.5 mg PO DAILY Qty: 90 3RF atorvastatin 10 mg tablet 10 mg PO DAILY Qty: 90 3RF glipizide 5 mg tablet extended release 24hr 5 mg PO DAILY Qty: 90 3RF metformin 500 mg tablet extended release 24 hr 500 mg PO DAILY Qty: 90 3RF (DME) lancets [Accu-Chek Softclix Lancets] Misc See Rx Instructions .Route Qty: 200 3RF Rx Instructions: FS TID insulin aspart U-100 [Novolog U-100 Insulin aspart] 100 unit/mL solution 10 unit SQ BID Qty: 10 2RF (DME) pen needle, diabetic [Comfort EZ Pen [place]] 32 gauge x 5/32 needle See Rx Instructions .Route Qty: 100 2RF Rx Instructions: As directed (DME) Dexcom G7 Cereal Popper Misc See Rx Instructions .Route Qty: 1 0RF Rx Instructions: As directed (DME) Dexcom G7 Sensor Device See Rx Instructions .ROUTE .COMPLEX Qty: 3 5RF Dose Instruction: USE TO MONITOR BLOOD SUGAR DIRECTED. REPLACE EVERY 10 DAYS. Rx Instructions: USE TO MONITOR BLOOD SUGAR DIRECTED. REPLACE EVERY 10 DAYS. lidocaine [Lidoderm] 5 % adhesive patch,medicated 2 patch topical DAILYP PRN (Reason: Pain) Rx Instructions: leave on most painful area for up to 12 hrs tizanidine [Zanaflex] 4 mg tablet 4 mg PO BIDP PRN (Reason: muscle spasticity) tramadol 50 mg tablet 50 mg PO BIDP PRN (Reason: Moderate Pain (Scale Score 5-6)) gqldjljdcx-rdfbplhytcizr-pkaf 50-325-40 mg tablet 1 tab PO Q6HP PRN (Reason: headache) hydromorphone 2 mg Tablet 2 mg PO Q6H PRN (Reason: severe pain.) Qty: 20 0RF ketorolac 10 mg Tablet 10 mg PO Q6H Qty: 20 0RF Referrals Follow up/Referrals: Arianna Pierce PA [Primary Care Provider] - See instructions Activity Restrictions/Add. Instructions Additional Instructions/Restrictions: Go home and rest. It would be best if you rested tomorrow too. No heavy lifting & No twisting for the next few days. Take the oral medications as directed. The muscle relaxer (cyclobenzaprine--Flexeril) will make you drowsy, so don't drive or operate heavy machinery after taking it. Follow up with your regular doctor. GO TO THE ER FOR ANY WORSENING SYMPTOMS OR CONCERN, ESPECIALLY BOWEL OR BLADDER ISSUES, SADDLE AREA NUMBNESS, FEVER, ETC Clinical Impressions Clinical Impression: Coccyx pain, Low back pain, Fall Instructions Patient Instructions: Ibuprofen, Cyclobenzaprine Print Language Print Language: Wallisian Discharge ED Provider: Adryan Carvajal [facility] HPI General Stated complaint: ao 12/05, pain in tail bone Time Seen by Provider: 12/06/24 13:23 History of Present Illness Provider Complaint: She states that she slipped and fell on ice yesterday. She came down on her bottom. She has had coccyx pain since then. She denies any other injury. Related Data Home Medications ?Medication ?Instructions ?Recorded ?Confirmed cholecalciferol (vitamin D3) 50 2,000 unit PO DAILY 04/03/24 06/26/24 mcg (2,000 unit) tablet (Vitamin D3) ergocalciferol (vitamin D2) 1,250 50,000 unit PO WEEKLY 06/11/24 06/26/24 mcg (50,000 unit) capsule (Vitamin D2) lidocaine 5 % topical patch 2 patch topical DAILYP PRN Pain 06/14/24 06/26/24 (Lidoderm) lhmufwokbe-rmfnotqxjjvge-qseeqazc 1 tab PO Q6HP PRN headache 06/19/24 06/26/24 50 mg-325 mg-40 mg tablet tizanidine 4 mg tablet (Zanaflex) 4 mg PO BIDP PRN muscle spasticity 06/19/24 06/26/24 tramadol 50 mg tablet 50 mg PO BIDP PRN Moderate Pain 06/19/24 06/26/24 (Scale Score 5-6) Previous Rx's ?Medication ?Instructions ?Recorded aspirin 81 mg tablet,delayed 81 mg PO DAILY #90 tabs 11/21/23 release (Adult Low Dose Aspirin) atorvastatin 10 mg tablet 10 mg PO DAILY #90 tabs 11/21/23 blood sugar diagnostic (Advanced #200 ea 11/21/23 Glucose Meter Test Strips) blood-glucose meter (Advanced #1 ea 11/21/23 Glucose Meter) glipizide 5 mg tablet, extended 5 mg PO DAILY #90 tabs 11/21/23 release 24 hr lancets (Accu-Chek Softclix #200 ea 11/21/23 Lancets) lisinopril 2.5 mg tablet 2.5 mg PO DAILY #90 tabs 11/21/23 metformin 500 mg tablet,extended 500 mg PO DAILY #90 tabs 11/21/23 release 24 hr insulin aspart U-100 100 unit/mL 10 unit (0.1 mL) SQ BID #10 mL 11/24/23 subcutaneous solution (Novolog U-100 Insulin aspart) pen needle, diabetic 32 gauge x #100 ea 11/24/23 (Comfort EZ Pen [place]) blood-glucose meter,continuous #1 ea 03/02/24 (Dexcom G7 Cereal Popper) semaglutide 0.25 mg or 0.5 mg (2 0.25 mg (0.368 mL) SQ WEEKLY #3 mL 04/03/24 mg/3 mL) subcutaneous pen injector (Ozempic) blood-glucose sensor (Dexcom G7 #3 ea 04/18/24 Sensor device) pregabalin 75 mg capsule (Lyrica) 75 mg PO TID #90 caps 06/11/24 hydromorphone 2 mg tablet 2 mg PO Q6H PRN severe pain. #20 06/20/24 tabs ketorolac 10 mg tablet 10 mg PO Q6H #20 tabs 06/20/24 ondansetron 4 mg disintegrating 4 mg PO Q6H PRN nausea and 06/26/24 tablet vomiting #20 tabs oxycodone 5 mg tablet 5 mg PO Q8H PRN pain #14 tabs 06/26/24 cyclobenzaprine 10 mg tablet 10 mg PO BID PRN Muscle Spasm #20 12/06/24 tabs ibuprofen 800 mg tablet (IBU) 800 mg PO Q8HP PRN Moderate Pain 12/06/24 #30 tabs Allergies Allergy/AdvReac Type Severity Reaction Status Date / Time amoxicillin (From Augmentin) Allergy Mild reaction Verified 06/26/24 15:39 as a child (rash) clavulanic acid (From Allergy Mild reaction Verified 06/26/24 15:39 Augmentin) as a child (rash) sulfisoxazole (From Allergy Mild REACTION Verified 06/26/24 15:39 Pediazole) WHEN SHE WAS A CHILD (rash) azithromycin (From Zithromax) AdvReac Mild NA-NAUSEA/V Verified 06/26/24 15:39 OMITING erythromycin base AdvReac Mild NA-NAUSEA/V Verified 06/26/24 15:39 OMITING amitriptyline AdvReac Verified 06/26/24 15:39 PFSH PFSH Disclaimer: The information contained in this section may have been updated after the patient was seen, as this information can be updated by other users. Medical History (Updated 12/06/24 @ 14:00 by Adryan Carvajal APRN) Vitamin D deficiency Headache Hyperlipidemia Hypertension Type 2 diabetes mellitus Depression Anxiety B12 deficiency Migraine headache Gestational diabetes Surgical History (Updated 06/26/24 @ 15:40 by LIN Cassidy) History of LAVH History of tonsillectomy and adenoidectomy History of hysteroscopy History of tubal ligation H/O dilation and curettage Family History Other Family history of hypertension Social History Smoking Status: Never smoker second hand exposure: Yes alcohol intake: never substance use type: denies use current occupational status: unemployed Travel in the last 8 weeks: None household members: family housing: house current occupational exposures/hazards: No caffeine: Yes Have you lived/traveled outside US in past 30 days?: No Contact w/someone who lives/traveled outside US past 30 days?: No Exposure to someone with infectious disease in past 14 days?: No Do you have a fever (greater than 100.4 F or 38 C)?: No Have you tested positive for COVID-19: No Exposed to someone with COVID-19 in past 14 days?: No Do you have a sore throat?: No Do you have a cough?: No Do you have any weakness?: No Do you have any diarrhea?: No Are you experiencing any unusual bleeding?: No Do you have any muscle aches/pain?: No Do you have any abdominal pain?: Yes Are you experiencing loss of taste or smell?: No ROS Obtained: Yes All systems reviewed & no additional complaints except as documented Constitutional Constitutional: Denies chills and Denies fever(s) Eyes Eyes: Denies eye discharge ENT Ears, Nose, Mouth, and Throat: Denies dizziness, Denies otalgia, Denies neck pain and Denies sore throat Cardiovascular Cardiovascular: Denies chest pain Respiratory Respiratory: Denies shortness of breath, Denies chest congestion, Denies cough, Denies stridor and Denies wheezing Gastrointestinal Gastrointestingal: Denies nausea or vomiting Musculoskeletal Musculoskeletal: Reports as per HPI, Reports back pain and Denies neck pain Integumentary/Breasts Skin/Breast: Denies dry skin, Denies rash and Denies wounds Neurologic Neurologic: Denies dizziness and Denies paresthesias Allergic/Immunologic Allergic/Immunologic: Denies wheezing Physical Exam General General appearance: alert and in no apparent distress Head Head exam: atraumatic, normocephalic and normal inspection Eye Eye exam: Present normal appearance, PERRL and EOMI ENT ENT exam: Present normal exam, normal oropharynx, mucous membranes moist, TM's normal bilaterally and normal external ear exam Neck Neck exam: Present normal inspection, full ROM and trachea midline; Absent meningismus or lymphadenopathy Chest Chest inspection: Present normal inspection and symmetric chest wall rise; Absent tenderness Respiratory Respiratory exam: Present normal lung sounds bilaterally; Absent respiratory distress Cardiovascular Cardiovascular exam: Present regular rate and normal rhythm; Absent JVD Abdominal Exam Abdominal exam: Present soft and normal bowel sounds; Absent distention, tenderness or guarding Extremities Exam Extremities exam: Present normal inspection, full ROM and normal capillary refill; Absent calf tenderness Back Exam Back exam: Present normal inspection and full ROM; Absent tenderness Neurological Exam Neurological exam: Present alert, oriented X3, CN II-XII intact, normal gait and reflexes normal; Absent motor sensory deficit Expanded Neurological Exam Speech: Present fluid speech Cranial nerves: Normal: EOM function (II, III, IV, ), facial sensation (V), facial palsy (VII), gag reflex (IX), spinal accessory function (XI) and tongue deviation (XII) Cerebellar function: Normal: heel to parsons Cerebellar function: normal gait Motor strength - LUE: 5/5 Motor strength - RUE: 5/5 Motor strength - LLE: 5/5 Motor strength - RLE: 5/5 Sensory exam upper extremity: Normal: light touch and 2 point discrimination Sensory exam lower extremity: Normal: light touch and 2 point discrimination DTR: 2+: biceps (L), biceps (R), patellar (L), patellar (R), Achilles tendon (L) and Achilles tendon (R) Spinal cord function: Absent saddle anesthesia Psychiatric Psychiatric exam: Present normal affect and normal mood Skin Skin exam: Present warm, dry, intact and normal color Lymphatic Lymphatic Findings: no adenopathy Medical Decision Making Medical Records Medical records reviewed: No I reviewed the patient's medical records. Screening: Per USPSTF and CDC recommendations, given the prevalence of disease in our region, it is our hospital?s policy to screen for HIV and viral Hepatitis for all patients aged 18 and over and those with ongoing risk factors. Christiano Inquiry Pt receiving controlled substance: No Orders (Tests/Meds): ORDERS Category Date Time Status Coccyx XR 2 view [XR coccyx 2V] Stat Exams 12/06/24 12:59 Taken Radiology Data #1: Image(s): Other (coccyx) Image Reviewed: Yes I reviewed the patient's radiology image and Yes I have reviewed radiologist's interpretation Preliminary Findings: No Fracture Seen Accession No. : [id number] Patient Name / ID : ALFRED Pollard / [id number] Exam Date : 12/06/2024 13:03:04 ( Final ) Study Comment : Sex / Age : F / 34Y Creator : GAVINO CADET MD Dictator : Iron Setter : Pharmacy Technician Inpatient : GAVINO CADET MD Approver2 : Report Date : 12/06/2024 13:41:10 My Comment : PROCEDURE INFORMATION: Exam: XR Sacrum and Coccyx, 2 or More Views Exam date and time: 12/06/2024 1:03 PM Age: 34 years old Clinical indication: Pain in coccyx area; Additional info: Fall TECHNIQUE: Imaging protocol: XR of the sacrum and coccyx, 2 or more views. COMPARISON: CR HIPCMRT XR hip RT 2-3V w/pelvis 12/05/2018 12:12 PM FINDINGS: Bones/joints: There is no evidence of fracture. Soft tissues: Normal. Other findings: There are bilateral pelvic surgical clips since the comparison study. IMPRESSION: 1. There are bilateral pelvic surgical clips since the comparison study. 2. There is no evidence of fracture. RECOMMENDATION: Persistent symptoms may warrant CT or MRI.
[2024-12-06 13:59] VITALS: BP 128/74; PULSE 74; RESP 18; TEMP 36.5; O2SAT 99
== END 2024-12-06 14:03 | disposition home or self-care (01) ==
PROVIDERS: Emergency Provider Nurse Practitioner Family; PCP Physician Assistant
DX: M54.50 Low back pain, unspecified (principal)
CPT/HCPCS: 72220; 99213; G0381

== ENCOUNTER 2025-04-30 15:04 | Outpatient (CLI) | payer OTHER, SELFPAY ==
--- OUTSIDE RECORDS SUMMARY | 2025-04-30 15:06 | XMS_ITS | Encounter Summary ---
Author Organization Healthcare Address [address] [place] [address] Care Team Providers Care Lard Maker Name Role Phone Arianna Pierce Primary Care Provider [phone] Gema Matamoros BEAD FLIPPER Unavailable [phone] Encounter Details Date Type Department Care Team (Late st Contact Info) Description 04/28/2022 Orders Only External Location [address] [place] [address] Provider, External Social History Tobacco Use Types Packs/Day Years Used Date Smoking Tobacco: Never Assessed Comments Unknown Sex and Gender Information Value Date Recorded Sex Assigned at Not on file Legal Sex Female 8:28 PM EDT Gender Identity Not on file Sexual Orientation Not on file documented as of this encounter Plan of Treatment Not on file documented as of this encounter Procedures Procedure Name Priority Date/Time Associated Diagnosis Comments MR OUTSIDE IMAGES 04/28/2022 1:56 PM EDT documented in this encounter Results * MR transfer of outside films (04/28/2022 1:56 PM EDT) Anatomical Region Laterality Modality Magnetic Resonan ce 04/28/2022 1:56 PM EDT us External Provider IMG MRI PROCEDURES Final Resul t documented in this encounter Visit Diagnoses Not on filedocumented in this encounter Care Teams Lard Maker Relationship Specialty Start Date End Date Arianna Pierce PA [address] [place] [address] PCP - General 09/02/22 Gema Matamoros, BEAD FLIPPER [address] [facility] [place] [address] [place] [id number] Nurse Practitioner Neurosurgery 09/02/22 documented as of this encounter
--- OUTSIDE RECORDS SUMMARY | 2025-04-30 15:06 | XMS_ITS | Clinical Summary ---
Author Organization [facility] Address [address] [place] [address] Care Team Providers Care School Psychologist Name Role Phone Arianna Pierce Primary Care Provider [phone] Gema Matamoros CONVERTER SUPERVISOR Unavailable Allergies Active Allergy Reactions Criticality Noted Date Comments Amoxicillin-Pot Clavulanate Unknown - Patient states they do not know rxn details Low 11/01/2019 Unknown childhood reaction Azithromycin Other - please document in the comment field Low 11/01/2019 Erythromycin Unknown - Patient states they do not know rxn details Low 11/01/2019 Medications butalbital-acet aminophen-caffe ine (Fioricet) 50-300-40 MG capsule TAKE 1 CAPSULE EVERY 8 HOURS NEEDED FOR MIGRAINE HEADACHE 2 Active divalproex (Depakote ER) 250 MG 24 hr tablet TAKE 1 TABLET 1 TIME EACH DAY AT BEDTIME 2 Active gabapentin (Neurontin) 600 MG tablet TAKE 1 TABLET 2 TIMES EACH DAY 2 Active phentermine (Adipex-P) 37.5 MG tablet TAKE 1 TABLET 1 TIME EACH DAY, 30 MINUTES BEFORE BREAKFAST OR 1 TO 2 HOUR AFTER BREAKFAST. 2 Active Ubrelvy 100 MG tablet TAKE 1 TABLET 1 TIME EACH DAY NEEDED FOR HEADACHE 2 Active Active Problems No known active problems Family History Medical History Relation Name Comments Heart Problem Mother Relation Name Status Comments Mother Social History Tobacco Use Types Packs/Day Years Used Date Smoking Tobacco: Never Smokeless Tobacco: Never Alcohol Use Standard Drinks/Week Comments Never 0 (1 standard drink = 0.6 oz pur e alcohol) Comments Unknown Sex and Gender Information Value Date Recorded Sex Assigned at Not on file Legal Sex Female 8:28 PM EDT Gender Identity Not on file Sexual Orientation Not on file Last Filed Vital Signs Vital Sign Reading Time Taken Comments Blood Pressure 130/88 02/03/2023 1:51 PM EDT Pulse 108 02/03/2023 1:51 PM EDT Temperature - - Respiratory Rate - - Oxygen Saturation 98% 02/03/2023 1:51 PM EDT Inhaled Oxygen Concentration - - Weight 80.3 kg (177 lb) 02/03/2023 1:51 PM EDT Height 157.5 cm (5' 2 ) 02/03/2023 1:51 PM EDT Body Mass Index 32.37 02/03/2023 1:51 PM EDT Plan of Treatment Health Maintenance Due Date Last Done Comments [facility]-Depression Screening 1991 [facility]-HIV Screening 1991 [facility]-Hepatitis C Screening 1991 [facility]-Infant/Child/Adol SDOH Screenings 1991 [facility]-Varicella Vaccines (1 of 2 - 13+ 2-dose series) 2004 HPV Vaccines (1 - 3-dose series) 2006 [facility]- SDOH Screenings 2009 [facility]-Adult SDOH Screenings 2009 [facility]-DTaP,Tdap,and Td Vaccine s (1 - Tdap) 2010 [facility]-Hepatitis B Vaccines (1 of 3 - 19+ 3-dose series) 2010 [facility]-Pap Smear 2012 [facility]-Cervical Cancer Screening 2021 [facility]-HPV/Cotest 2021 [id number] Vaccine (1 - 2023- season) 2024 [facility]-Influenza Vaccine ([place] n Ended) 2025 [facility]-Zoster Vaccines (1 of 2) 2041 [facility]-Obesity Intervention Completed 023, 09/02/2022 [facility]-HIB Vaccines Aged Out No longer e ligible based on patient's age to complete this topic [facility]-Hepatitis A Vaccines Aged Out No longer eligible based on patient's age to complete this topic [facility]-IPV Vaccines Aged Out No longer e ligible based on patient's age to complete this topic [facility]-Pneumococcal Vaccine: Pediatrics (0 to 5 Years) and At-Risk Patients (6 to 49 Years) Aged Out No longer eligible b ased on patient's age to complete this topic [facility]-Rotavirus Vaccines Aged Out No lo nger eligible based on patient's age to complete this topic Insurance [employer]ICA[employer] Care Teams School Psychologist Relationship Specialty Start Date End Date Arianna Pierce PA [address] [place] [address] PCP - General 09/02/22 Gema Matamoros APRN [address] [facility] [address] [place] [address] Nurse Practitioner Neurosurgery 09/02/22
--- OUTSIDE RECORDS SUMMARY | 2025-04-30 15:06 | XMS_ITS | Encounter Summary ---
Author Organization [facility] Address [address] [place] [address] Care Team Providers Care Chip Separator Name Role Phone Arianna Pierce Primary Care Provider [phone] Gema Matamoros TORCH OPERATOR Unavailable [phone] Reason for Referral * Consultation (Routine) - Closed Specialty Diagnoses / Procedures Referred By Contac t Referred To Contact Neurosurgery Diagnoses Protrusion of cervical intervertebral disc Arianna Pierce PA [address] [place] [address] Phone: tel: fax: Referral ID Status Reason Start Date Expiration Date V isits Requested Visits Authorized [id number] Closed Specialty Services Required 05/04/2022 11/03/2023 1 1 Encounter Details Date Type Department Care Team (Latest Contact Info) Description 05/04/2022 [facility] [address] [place] [address] Arianna Pierce PA [address] [place] [address] Protrusion of cervical intervertebral disc (Primary Dx) Social History Tobacco Use Types Packs/Day Years Used Date Smoking Tobacco: Never Assessed Comments Unknown Sex and Gender Information Value Date Recorded Sex Assigned at Not on file Legal Sex Female 8:28 PM EDT Gender Identity Not on file Sexual Orientation Not on file documented as of this encounter Plan of Treatment Scheduled Referrals Name Type Priority Associated Diagnoses Orde r Schedule Ambulatory Referral to Neurosurgery Outpatient Referral Routine Protrusion of cervical intervertebral disc Expected: 05/04/2022 (Approximate), Expires: 08/04/2022 documented as of this encounter Visit Diagnoses Diagnosis Protrusion of cervical intervertebral disc- Primary documented in this encounter Care Teams Chip Separator Relationship Specialty Start Date End Date Arianna Pierce PA [address] [place] [address] PCP - General 09/02/22 Gema Matamoros, MARYSOL [address] [facility] [address] [place] [address] Nurse Practitioner Neurosurgery 09/02/22 documented as of this encounter
--- OUTSIDE RECORDS SUMMARY | 2025-04-30 15:07 | XMS_ITS | Continuity of Care Document ---
Author Organization [place] - mAPPn., [employer] [facility] Address [address] [place] [address] Assessment No assessment recorded. Plan of Treatment Reminders Order Date Submit Date Provider Last Modified By Organization Details Last Modified Time Details Appointments None recorded. Lab None recorded. Referral None recorded. Procedures None recorded. Surgeries None recorded. Imaging MRI, cervical spine, w/o contrast 2024 025 [email or web address] [facility] ([facility]), [address], [place], [address], 10:21:58 Medication Orders ondansetron 8 mg disintegrat ing tablet 2024 025 [facility], [address] [place] [address], [id number], 5 17:56:42 Lyrica 100 mg capsule 2024 025 [facility], [address] [place] [address], [id number], 5 10:01:40 tizanidine 4 mg tablet 2024 025 [facility], [address] [place] [address], [id number], 5 17:56:41 Patient TargetsNo targets recorded. Patient Instructions Encounter Date Encounter Id Patient Instructions Last Modified By Organization Details Last Modified Time 04/15/2025 [id number] nausea and vomiting: care instructions Not available 04/15/2025 17:09:22 Reason for Referral None Reported. Problems Name Problem SNOMED Code Status Onset Date Resolution Date Notes Provider Name and Address Organization Details Recorded Time Diabetes mellitus [id number] Active 2023 JAMIL Weeks [address] [place] [address], [address] [place] [address] , [employer] 4 11:36:00 Cervical disc disorder with radiculo uriel 722500203 Active 2023 JAMIL Weeks [address] [place] [address], [address] [place] [address] , [employer] 4 11:36:16 Migraine 95918894 Active 2023 JAMIL Weeks [address] [place] [address], [address] [place] [address] , [employer] 4 11:36:13 Hyperlip idemia 00220696 Active 2023 JAMIL Weeks [address] [place] [address], [address] [place] [address] , [employer] 4 11:36:09 Deficien cy of vitamin D2 398314913 Active 2023 JAMIL Weeks [address] [place] [address], [address] [place] [address] , [employer] 4 11:36:03 Vitamin D deficien cy 89558523 Active 2023 JAMIL Weeks [address] [place] [address], [address] [place] [address] , [employer] 4 11:36:20 Cough 92105334 Active 2023 Problem Code: R05; Problem Code Type: ICD-10; JAMIL Weeks [address] [place] [address], [address] [place] [address] , [employer] 4 17:04:19 Low back pain 421252953 Active 2024 Problem Code: M54.5; Problem Code Type: ICD-10; JAMIL Weeks [address] [place], [address] , [employer] 5 15:16:16 Acute sinusiti s 42100258 Active 2024 Problem Code: J01.90; Problem Code Type: ICD-10; JAMIL Weeks [address] [place] [address], [address] , [employer] 5 14:48:01 Nausea and vomiting 02432254 Active 2024 JAMIL Weeks [address] [place], [address] , [employer] 5 17:09:02 Plane wart 154168043 Completed 201601/27/2018 Problem Code: B07.8; Problem Code Type: ICD-10; Not Available [facility] 2 21:03:37 Mild major depressi on, single episode 82742421 Completed 201703/28/2018 Problem Code: F32.0; Problem Code Type: ICD-10; Not Available [facility] 2 21:03:37 Anxiety disorder 573490803 Active 2021 Not Available [facility] 2 21:03:37 Restless legs 99602437 Completed 201606/30/2017 Problem Code: G25.81; Problem Code Type: ICD-10; Not Available [facility] 2 21:03:37 Insomnia 346138268 Completed 202109/14/2022 RADHA MAYA null, [employer] 2 10:42:53 Nerve root disorder 63177355 Completed 201708/21/2018 Problem Code: G54.2; Problem Code Type: ICD-10; Not Available [facility] 2 21:03:38 Acute non-supp urative serous otitis media 196031226 Completed 202009/14/2022 Problem Code: H65.0; Problem Code Type: ICD-10; RADHA ALFAROR null, [employer] 2 10:42:53 Acute non-supp urative serous otitis media 359978963 Completed 202011/19/2021 Problem Code: H65.01; Problem Code Type: ICD-10; RADHA preston, [employer] 2 10:42:53 Acute suppurat lul otitis media 494883947 Completed 201904/16/2021 Not Available [facility] 2 21:03:38 Otalgia of left ear Completed 201809/14/2022 RADHA MAYA null, [employer] 2 10:42:53 Acute maxillar y sinusiti s 34405922 Completed 201909/14/2022 Problem Code: J01.01; Problem Code Type: ICD-10; RADHA MAYA null, [employer] 2 10:42:54 Acute frontal sinusiti s 68463273 Completed 202009/14/2022 Problem Code: J01.10; Problem Code Type: ICD-10; RADHA MAYA null, [employer] 2 10:42:54 Acute sinusiti s 77703648 Completed 201909/14/2022 Problem Code: J01.90; Problem Code Type: ICD-10; JAMIL Weeks [address] [place] [address], [address] , [employer] 5 14:48:01 Acute sinusiti s 57294907 Completed 201604/14/2017 Problem Code: J01.90; Problem Code Type: ICD-10; JAMIL Weeks [address] [place], [address] , [employer] 5 14:48:01 Acute sinusiti s 68472000 Completed 202005/11/2021 Problem Code: J01.90; Problem Code Type: ICD-10; JAMIL Weeks [address] [place], [address] , [employer] 5 14:48:01 Acute sinusiti s 87513465 Completed 202009/08/2021 Problem Code: J01.90; Problem Code Type: ICD-10; JAMIL Weeks [address] [facility], [place], [address] , [employer] 5 14:48:01 Acute sinusiti s 36096501 Completed 201707/06/2018 Problem Code: J01.90; Problem Code Type: ICD-10; JAMIL Weeks [address] [facility], [place], [address] , [employer] 5 14:48:01 Acute sinusiti s 66288277 Completed 202011/19/2021 Problem Code: J01.90; Problem Code Type: ICD-10; JAMIL Weeks [address] [place], [address] , [employer] 5 14:48:01 Acute pharyngi tis 529776832 Completed 201605/30/2017 Problem Code: J02.8; Problem Code Type: ICD-10; RADHA MYNEAR null, [employer] 2 10:42:54 Acute pharyngi tis 712540399 Completed 201809/14/2022 RADHA MYNEAR null, [employer] 2 10:42:54 Acute pharyngi tis 838146485 Completed 202011/19/2021 RADHA MYNEAR null, [employer] 2 10:42:54 Disorder of upper respirat ory system 186060121 Completed 201711/30/2017 Problem Code: J06.9; Problem Code Type: ICD-10; RADHA MYNEAR null, [employer] 2 10:42:53 Disorder of upper respirat ory system 908861386 Completed 201708/08/2018 Problem Code: J06.9; Problem Code Type: ICD-10; RADHA ANDERSONNEAR null, [employer] 2 10:42:53 Disorder of upper respirat ory system 062072752 Completed 201809/14/2022 Problem Code: J06.9; Problem Code Type: ICD-10; RADHA ANDERSONNEAR null, [employer] 2 10:42:53 Disorder of upper respirat ory system 853121129 Completed 201904/16/2021 Problem Code: J06.9; Problem Code Type: ICD-10; RADHA ANDERSONNEAR null, [employer] 2 10:42:53 Influenz a with gastroin testinal tract involvem ent 998360158 Completed 201904/16/2021 Problem Code: J10.2; Problem Code Type: ICD-10; RADHA ANDERSONNEAR null, [employer] 2 10:42:53 Influenz a with gastroin testinal tract involvem ent 056368672 Completed 202009/14/2022 Problem Code: J10.2; Problem Code Type: ICD-10; RADHA ANDERSONNEAR null, [employer] 2 10:42:53 Major depressi on, single episode 70321094 Active 2021 Problem Code: F32.9; Problem Code Type: ICD-10; Not Available [facility] 2 21:03:41 Acute bronchit is 58242330 Completed 201904/16/2021 Problem Code: J20.9; Problem Code Type: ICD-10; Not Available [facility] 2 21:03:41 Noninfec tious gastroen teritis 26106941 Completed 201904/16/2021 Not Available [facility] 2 21:03:41 Hypertro phic conditio n of skin 98309667 Completed 201703/28/2018 Problem Code: L91.8; Problem Code Type: ICD-10; Not Available [facility] 2 21:03:41 Pain of right hip joint 00995279434 9102 Completed 201808/18/2020 Problem Code: M25.551; Problem Code Type: ICD-10; Not Available [facility] 2 21:03:42 Pain of joint of hand 744820914 Completed 201809/14/2022 Problem Code: M25.54; Problem Code Type: ICD-10; RADHA MYNEAR null, [employer] 2 10:42:53 Neck pain 79226446 Completed 201708/21/2018 RADHA MYNEAR null, [employer] 2 10:42:54 Neck pain 03043045 Completed 201809/14/2022 RADHA MYNEAR null, [employer] 2 10:42:54 Low back pain 253653429 Completed 201809/14/2022 Problem Code: M54.5; Problem Code Type: ICD-10; JAMIL Weeks [address] [place] [address], [address] [facility] [employer] 5 15:16:16 Pain in right arm 648203556 Completed 201808/18/2020 Problem Code: M79.601; Problem Code Type: ICD-10; Not Available [facility] 2 21:03:43 Urinary tract infectio us disease 21160152 Completed 201809/14/2022 Problem Code: N39.0; Problem Code Type: ICD-10; RADHA JUSTINNEAR null, [employer] 2 10:42:54 Breast lump 44893064 Completed 201601/27/2018 Problem Code: N63; Problem Code Type: ICD-10; Not Available [facility] 2 21:03:43 Complica tion occurrin g during pregnanc y 930046392 Completed 201809/14/2022 RADHA preston, [employer] 2 10:42:54 Cough 09227355 Completed 201909/14/2022 Problem Code: R05; Problem Code Type: ICD-10; JAMIL Weeks [address] [place] [address], [address] , [employer] 4 17:04:19 Diarrhea 01192434 Completed 201601/12/2017 Problem Code: R19.7; Problem Code Type: ICD-10; Not Available [facility] 2 21:03:44 Diarrhea 95268614 Completed 202005/11/2021 Problem Code: R19.7; Problem Code Type: ICD-10; Not Available [facility] 2 21:03:44 Nausea and vomiting 33801805 Completed 201601/12/2017 Problem Code: R11.2; Problem Code Type: ICD-10; JAMIL Weeks [address] [place] [address], [address] , [employer] 5 17:09:02 Dizzines s and giddines s 808051297 Completed 202009/14/2022 Problem Code: R42; Problem Code Type: ICD-10; RADHA preston, [employer] 2 10:42:54 Headache 84272162 Completed 201809/14/2022 Problem Code: R51; Problem Code Type: ICD-10; RADHA preston, [employer] 2 10:42:53 Otalgia of left ear Completed 201808/18/2020 RADHA preston, [employer] 2 10:42:53 General examinat ion of patient Completed 201804/16/2021 Not Available [facility] 2 21:03:46 Viral screenin g Completed 201904/16/2021 Problem Code: Z11.59; Problem Code Type: ICD-10; Not Available [facility] 21:03:47 Normal pregnanc y in multigra nilesh [id number] 4106 Completed 201809/14/2022 Problem Code: Z34.81; Problem Code Type: ICD-10; RADHA preston, [employer] 10:42:54 Body mass index 30+ - obesity 020136117 Active 2019 Problem Code: Z68.34; Problem Code Type: ICD-10; Not Available [facility] 21:03:48 Body mass index 30+ - obesity 730262330 Completed 201808/18/2020 Problem Code: Z68.32; Problem Code Type: ICD-10; Not Available [facility] 21:03:49 Body mass index 30+ - obesity 357761691 Completed 201708/18/2020 Problem Code: Z68.33; Problem Code Type: ICD-10; Not Available [facility] 21:03:49 Single major depressi ve episode, mild Completed 201703/28/2018 Problem Code: 296.21; Problem Code Type: ICD-9; Not Available [facility] 21:03:49 Verruca vulgaris 95668163 Completed 201606/30/2017 Problem Code: 078.10; Problem Code Type: ICD-9; Not Available [facility] 21:03:50 Myositis 67717724 Completed 202109/14/2022 Problem Code: M60.9; Problem Code Type: ICD-10; RADHA preston, [employer] 10:42:54 Cough 42248372 Completed 201711/30/2017 Problem Code: R05; Problem Code Type: ICD-10; JAMIL Weeks [address] [place] [address], [address] , [employer] 4 17:04:19 Brachial plexus disorder 1282093 Completed 201708/21/2018 Problem Code: 353.0; Problem Code Type: ICD-9; Not Available [facility] 2 21:03:51 Cough 74403403 Completed 202011/19/2021 Problem Code: R05; Problem Code Type: ICD-10; JAMIL Weeks [address] [place] [address], [address] , [employer] 4 17:04:19 Acute upper respirat ory infectio n of multiple sites Completed 201708/08/2018 Problem Code: 465.8; Problem Code Type: ICD-9; Not Available [facility] 2 21:03:52 Vomiting 810543969 Completed 202109/14/2022 RADHA MAYA null, [employer] 2 10:42:54 Nausea and vomiting 00145958 Completed 201710/09/2018 Problem Code: R11.2; Problem Code Type: ICD-10; JAMIL Weeks [address] [place] [address], [address] , [employer] 5 17:09:02 Diarrhea 69234254 Completed 201708/24/2018 Problem Code: R19.7; Problem Code Type: ICD-10; Not Available [facility] 2 21:03:53 Eruption 726624137 Completed 201707/06/2018 Problem Code: R21; Problem Code Type: ICD-10; Not Available [facility] 2 21:03:53 Dysuria 52994679 Completed 201809/14/2022 Problem Code: R30.0; Problem Code Type: ICD-10; RADHA MAYA null, [employer] 2 10:42:54 Headache 55971735 Completed 202101/11/2022 RADHA ALFAROR null, [employer]. 10:42:53 Examinat ion for suspecte d tubercul osis Completed 201809/03/2019 Problem Code: V71.2; Problem Code Type: ICD-9; Not Available [facility] 21:03:55 Body mass index 30+ - obesity 685554831 Completed 202101/11/2022 Problem Code: Z68.31; Problem Code Type: ICD-10; Not Available [facility] 21:03:56 Body mass index 30+ - obesity 134670876 Completed 202005/11/2021 Problem Code: Z68.31; Problem Code Type: ICD-10; Not Available [facility] 21:03:56 Problem Notes None recorded. Procedures Surgical History Date Name Laterality Status Provider Name and Address Organization Details Recorded Time 02/20/20 25 Diabetic Foot Screen completed JAMIL Weeks [address] [place] [address], [address], [employer]. 02/21/2025 13:03:03 12/11/19 25 Diabetic Foot Screen completed JAMIL Weeks [address] [place] [address], [address], [employer]. 12/11/2024 15:57:25 06/19/20 24 Date of Last Pap Smear completed [email or web address] 12/11/2024 12:29:40 09/27/20 20 ligation of bilateral fallopian tubes completed Not Available [facility] 07/20/2022 22:56:05 09/27/20 20 tonsillectomy and adenoidectomy completed Not Available [facility] 07/20/2022 22:56:05 Hysterectomy completed [email or web address] 09/24/2024 13:11:25 Tubal Ligation completed [email or web address] 09/24/2024 13:11:25 Endometrial Ablation completed [email or web address] 09/24/2024 13:11:25 Imaging Results None recorded. Procedure Notes None recorded. Medical Equipment None Reported. Allergies Allergen ID Allergen Name Allergen Category Reaction Reaction Severity Criticality Documentation Date Start Date Code Code System Note Provider Name and Address Organization Details Recorded Time 92796 amoxicill in trihydrat e medicatio n vomiting Not available Not available 07/20/2022 76806 8 RxNorm Cherelle Vice [place], [place] - [employer] 4 13:13:35 00295 Augmentin medicatio n vomiting Not available Not available 07/20/2022 54311 2 RxNorm Not Available [facility] 2 22:56:45 60239 azithromy valerie medicatio n nausea vomiting Not available Not available Not available 07/20/2022 83989 RxNorm Not Available [facility] 2 22:56:45 25652 Pediazole medicatio n other Not available Not available 07/20/2022 50483 RxNorm Not Available [facility] 2 22:56:46 Medications Name Sig Start Date Stop Date Status Note LastModified by Organization Details LastModified Time celecoxib 200 mg capsule TAKE 1 CAPSULE 1 TIME EACH DAY 09/24 completed Not Available Not Available Not Available cyclobenzap rine 10 mg tablet TAKE 1 TABLET 2 TIMES EACH DAY NEEDED FOR MUSCLE SPASMS active Not Available Not Available No t Available amoxicillin 500 mg capsule take 1 capsule (500 mg) by oral route 3 times per day 07/11 completed Not Available Not Available Not Available fluconazole 100 mg tablet TAKE 1 TABLET 1 TIME EACH DAY FOR 3 DAYS 09/14 completed Not Available Not Available Not Available methocarbam ol 500 mg tablet Take one tab every 8 hours as needed. 05/18 completed Not Available Not Available Not Available metformin 500 mg tablet take 1 tablet (500 mg) by oral route once daily for gestation al diabetes 09/27 completed Not Available Not Available Not Available promethazin e-DM 6.25 mg-15 mg/5 mL oral syrup TAKE 5 ML (1 TEASPOONF UL) EVERY 6 HOURS NEEDED FOR COUGH 09/14 completed Not Available Not Available Not Available gabapentin 600 mg tablet TAKE 1 TABLET 2 TIMES EACH DAY FOR PAIN 09/24 completed Not Available Not Available Not Available ropinirole 1 mg tablet 1/2 tablet po q hs for 3 days then go to 1 whole tablet. 10/28 completed Not Available Not Available Not Available clindamycin HCl 300 mg capsule take 1 capsule (300 mg) by oral route 2 times per day for 7 days 10/16 completed Not Available Not Available Not Available triazolam 0.25 mg tablet TAKE 1 TABLET 30 MINUTES BEFORE MRI. MAY TAKE ANOTHER IF NEEDED. 09/24 completed Not Available Not Available Not Available loperamide 2 mg capsule take 2 capsules (4 mg) by oral route after 1st loose stool, followed by 1 capsule after each subsequen t loose stool not to exceed 16 mg/day 05/11 completed Not Available Not Available Not Available trazodone 50 mg tablet take 1 tablet (50 mg) by oral route once daily at bedtime 11/24 completed Not Available Not Available Not Available atorvastati n 10 mg tablet TAKE 1 TABLET 1 TIME EACH DAY AT BEDTIME active Not Available Not Available No t Available ibuprofen 800 mg tablet TAKE 1 TABLET EVERY 8 HOURS NEEDED FOR MODERATE PAIN 02/19 completed Not Available Not Available Not Available tizanidine 4 mg tablet TAKE 1 TABLET 2 TIMES EACH DAY NEEDED FOR MUSCLE SPASMS active Not Available Not Available No t Available fluconazole 150 mg tablet TAKE 1 TABLET EVERY OTHER DAY FOR 6 DAYS 09/24 completed Not Available Not Available Not Available benzonatate 200 mg capsule TAKE 1 CAPSULE 2 TIMES EACH DAY FOR COUGH 09/14 completed Not Available Not Available Not Available meloxicam 15 mg tablet once daily 03/31 completed Not Available Not Available Not Available promethazin e 12.5 mg tablet take 1 tablet (12.5 mg) by oral route every 6 hours as needed prn N/V 10/30 completed Not Available Not Available Not Available Medrol (Mac) 4 mg tablets in a dose pack take by oral route as directed per package instructi ons 11/19 completed Not Available Not Available Not Available prednisone 20 mg tablet TAKE 1 TABLET 2 TIMES EACH DAY FOR 5 DAYS 02/19 completed Not Available Not Available Not Available prednisone 5 mg tablet 10 pills po today and decrease by one pill each day 07/25 completed Not Available Not Available Not Available methylpredn isolone 4 mg tablet as directed 10/16 completed Not Available Not Available Not Available glipizide ER 5 mg tablet, extended release 24 hr TAKE 1 TABLET 1 TIME EACH DAY active Not Available Not Available No t Available permethrin 5 % topical cream apply from the face to the toes and in between the toes and fingers. Leave on for 8-12 hours and then shower off. 08/10 completed Not Available Not Available Not Available pseudoephed rine ER 120 mg tablet,exte nded release TAKE 1 TABLET EVERY 12 HOURS FOR 10 DAYS 02/19 completed Not Available Not Available Not Available phentermine 37.5 mg tablet TAKE 1 TABLET 1 TIME EACH DAY, 30 MINUTES BEFORE BREAKFAST OR 1 TO 2 HOUR AFTER BREAKFAST . 09/24 completed Not Available Not Available Not Available dextrometho rphan-guaif enesin 10 mg-100 mg/5 mL oral syrup Take 1 teaspoon by mouth q4h prn for cough 08/10 completed Not Available Not Available Not Available Tamiflu 75 mg capsule take 1 capsule (75 mg) by oral route 2 times per day 04/16 completed Not Available Not Available Not Available aspirin 81 mg tablet,olivia yed release Take 1 tablet every day by oral route as directed for 90 days, for heart health. active Not Available Not Available No t Available tramadol 50 mg tablet TAKE 1 TABLET 2 TIMES EACH DAY FOR NECK PAIN active Not Available Not Available No t Available butalbital- acetaminoph en-caffeine 50 mg-325 mg-40 mg tablet Take 1 tablet every 4 hours by oral route as needed for 30 days, for migraine headache. 2024 active Not Available Not Available Not Avai lable ondansetron 8 mg disintegrat ing tablet PLACE 1 TABLET UNDER THE TONGUE AND ALLOW TO DISSOLVE 2 TIMES EACH DAY NEEDED active Not Available Not Available No t Available Depo-Medrol 80 mg/mL suspension for injection Take 1 mL by injection route. 02/19 completed Not Available Not Available Not Available ketorolac 10 mg tablet TAKE 1 TABLET EVERY 6 HOURS 09/24 completed Not Available Not Available Not Available Macrobid 100 mg capsule take 1 capsule (100 mg) by oral route 2 times per day with food 07/11 completed Not Available Not Available Not Available Zofran 4 mg tablet Give 1 tablet every 6 hrs as needed for nausea and/or vomiting 09/19 completed Not Available Not Available Not Available hydromorpho ne 2 mg tablet TAKE ONE TABLET BY MOUTH EVERY 6 HOURS NEEDED FOR SEVERE PAIN 09/24 completed Not Available Not Available Not Available amitriptyli ne 25 mg tablet TAKE 1 TABLET 1 TIME EACH DAY AT BEDTIME 09/24 completed Not Available Not Available Not Available OneTouch Ultra Test strips USE TO CHECK BLOOD SUGAR 3 TIMES EACH DAY active Not Available Not Available No t Available meclizine 25 mg tablet TAKE 1 TABLET 3 TIMES EACH DAY NEEDED FOR GIDDINESS active Not Available Not Available No t Available doxycycline monohydrate 100 mg capsule take 1 capsule (100 mg) by oral route 2 times per day for 10 days 10/20 completed Not Available Not Available Not Available nystatin 100,000 unit/gram topical cream APPLY A THIN FILM TO THE AFFECTED AREA OF SKIN 2 TIMES EACH DAY FOR 14 DAYS 09/14 completed Not Available Not Available Not Available promethazin e 25 mg tablet TAKE 1 TABLET 3 TIMES EACH DAY NEEDED FOR NAUSEA AND VOMITING 09/14 completed Not Available Not Available Not Available gabapentin 300 mg capsule TAKE 1 CAPSULE 1 TIME EACH DAY AT BEDTIME 09/24 completed Not Available Not Available Not Available diclofenac sodium 75 mg tablet,olivia yed release Take 1 tablet(s) by mouth bid 01/30 completed Not Available Not Available Not Available alcohol swabs USE 3 TIMES EACH DAY NEEDED FOR CHECKING BLOOD SUGAR active Not Available Not Available No t Available Vitamin D2 1,250 mcg (50,000 unit) capsule Take 1 capsule every week by oral route as directed for 90 days, for Vitamin D deficienc y. 04/15 completed Not Available Not Available Not Available ketorolac 60 mg/2 mL intramuscul ar solution Inject 2 mL by intramusc ular route. 02/19 completed Not Available Not Available Not Available Naprosyn 500 mg tablet Take 1 tablet(s) by mouth bid 05/18 completed Not Available Not Available Not Available bromphenira mine-pseudo ephedrine-D M 2 mg-30 mg-10 mg/5 mL oral syrup take 10 millilite rs by oral route every 4-6 hours PRN cough 10/16 completed Not Available Not Available Not Available ondansetron 4 mg disintegrat ing tablet PLACE 1 TABLET UNDER THE TONGUE AND ALLOW TO DISSOLVE EVERY 6 HOURS NEEDED FOR NAUSEA AND VOMITING 09/24 completed Not Available Not Available Not Available cefdinir 300 mg capsule TAKE 1 CAPSULE EVERY 12 HOURS FOR 10 DAYS 02/19 completed Not Available Not Available Not Available fluoxetine 20 mg capsule TAKE 1 CAPSULE 1 TIME EACH DAY 09/24 completed Not Available Not Available Not Available fluticasone propionate 50 mcg/actuati on nasal spray,suspe nsion SPRAY 1 TIME IN EACH NOSTRIL 2 TIMES EACH DAY 09/14 completed Not Available Not Available Not Available metformin ER 500 mg tablet,exte nded release 24 hr TAKE 1 TABLET 1 TIME EACH DAY 04/15 completed Not Available Not Available Not Available lisinopril 2.5 mg tablet Take 1 tablet every day by oral route as directed for 90 days, for kidney protectio n. 04/15 completed Not Available Not Available Not Available oxycodone 5 mg tablet TAKE 1 TABLET EVERY 8 HOURS NEEDED FOR PAIN 09/24 completed Not Available Not Available Not Available divalproex ER 250 mg tablet,exte nded release 24 hr TAKE 1 TABLET 1 TIME EACH DAY AT BEDTIME 09/24 completed Not Available Not Available Not Available Novolog FlexPen U-100 Insulin aspart 100 unit/mL (3 mL) subcutaneou s Inject 10 units twice a day by subcutane ous route as directed for 30 days, for DIABETES. 2023 active Not Available Not Available Not Avai lable bupropion HCl XL 150 mg 24 hr tablet, extended release TAKE 1 TABLET 1 TIME EACH DAY 09/24 completed Not Available Not Available Not Available pregabalin 75 mg capsule TAKE 1 CAPSULE 3 TIMES EACH DAY DIRECTED FOR NERVE PAIN active Not Available Not Available No t Available pregabalin 100 mg capsule TAKE 1 CAPSULE 3 TIMES EACH DAY active Not Available Not Available No t Available ProAir HFA 90 mcg/actuati on aerosol inhaler inhale 1 - 2 puffs (90 - 180 mcg) by inhalatio n route every 4 hours as needed 09/27 completed Not Available Not Available Not Available levocetiriz ine 5 mg tablet TAKE 1 TABLET 1 TIME EACH DAY DIRECTED 04/15 completed Not Available Not Available Not Available Mucinex DM 60 mg-1,200 mg tablet,exte nded release 12 hr Take one tablet every 12 hours 10/30 completed Not Available Not Available Not Available Vitamin D3 50 mcg (2,000 unit) tablet TAKE 1 TABLET 1 TIME EACH DAY DIRECTED 04/15 completed Not Available Not Available Not Available BD Ultra-Fine Janel Pen Needle 32 gauge x USE TO INJECT INSULIN 2 TIMES EACH DAY active Not Available Not Available No t Available butalbital- acetaminoph en-caffeine 50 mg-300 mg-40 mg capsule TAKE 1 CAPSULE EVERY 8 HOURS NEEDED FOR MIGRAINE HEADACHES 09/24 completed Not Available Not Available Not Available Vitamin B-12 5,[address] 1 TABLET UNDER THE TONGUE AND ALLOW TO DISSOLVE 1 TIME EACH DAY 09/24 completed Not Available Not Available Not Available Ozempic 0.25 mg or 0.5 mg (2 mg/1.5 mL) subcutaneou s pen injector Inject 0.5 mg every week by subcutane ous route as directed for 28 days, for diabetes. 02/19 completed Not Available Not Available Not Available OneTouch Ultra2 Meter USE TO CHECK BLOOD SUGAR DIRECTED active Not Available Not Available No t Available OneTouch Delica Plus Lancet 33 gauge USE TO CHECK BLOOD SUGAR 3 TIMES EACH DAY active Not Available Not Available No t Available Ubrelvy 100 mg tablet TAKE 1 TABLET 1 TIME EACH DAY NEEDED FOR HEADACHE 09/24 completed Not Available Not Available Not Available Ozempic 1 mg/dose (4 mg/3 mL) subcutaneou s pen injector INJECT 1 MG 1 TIME EACH WEEK DIRECTED active Not Available Not Available No t Available Dexcom G7 Winder Contort Operator use to monitor blood sugar; replace every 10 days 2024 active Not Available Not Available Not Avai lable Dexcom G7 Sensor device USE TO MONITOR BLOOD SUGAR DIRECTED. REPLACE EVERY 10 DAYS. active Not Available Not Available No t Available Ozempic 0.25 mg or 0.5 mg (2 mg/3 mL) subcutaneou s pen injector INJECT 0.5 MG 1 TIME EACH WEEK DIRECTED FOR DIABETES 04/15 completed Not Available Not Available Not Available Vitals Date Recorded Body height Body mass index (BMI) Body weight Oxygen saturation Oxygen saturation in Arterial blood by Pulse oximetry Heart rate Body temperature Systolic blood pressure Diastolic blood pressure Provider Name and Address Organization Details Last Updated DateTime 5 157.48 cm 29.3 kg/m2 68940.5 g 99 % 99 % 96 /min 98.2 [degF] 132 mm[Hg] 84 mm[Hg] [facility] mLED. 5 15:15:24 Social History Question Answer Notes LastModified by Organizat ion Details LastModified Time Tobacco Smoking Status Never Smoker Nm Mery forbes: 'Tobacco /Alcohol /Supplem ents'; Nm Memo rivero: 'Never Smoker'; Not Available [facility]:59:21 Do You Have An Advance Directive? No Information not available 09/14/2022 Is Your Home Air Conditioned? Yes Information not available 09/14/2022 If You Are , What Was Your Level Of Alcohol Consumption Prior To ? None Information not available 09/24/2024 Do You Wear A Helmet When Biking? Yes Information not available 09/24/2024 Are You Blind Or Do You Have Difficulty Seeing? No Information not available 09/24/2024 What Is Your Level Of Caffeine Consumption? Moderate Information not available 09/24/2024 Are You A Caregiver? Yes Information not available 09/14/2022 What Type Of Machine Records Units Supervisor Do You Use? None Information not available 09/24/2024 In The 14 Days Before Symptom Onset, Have You Had Close Contact With A Laboratory-confi rmed COVID-19 While That Case Was Ill? No Information not available 09/14/2022 In The 14 Days Before Symptom Onset, Have You Had Close Contact With A Person Who Is Under Investigation For COVID-19 While That Person Was Ill? No Information not available 09/14/2022 Have You Been To An Area Known To Be High Risk For COVID-19? No Information not available 09/14/2022 Are You Deaf Or Do You Have Serious Difficulty Hearing? No Information not available 09/24/2024 What Type Of Diet Are You Following? DIABETIC Information not available 09/24/2024 What Is The Highest Grade Or Level Of School You Have Completed Or The Highest Degree You Have Received? [id number] Information not available 09/24/2024 Who Is Your Employer? [employer] Information not available 09/14/2022 How Many Days Of Moderate To Strenuous Exercise, Like A Brisk Walk, Did You Do In The Last 7 Days? 3 Information not available 09/24/2024 Have There Been Any Changes To Your Family Or Social Situation? No Information not available 09/14/2022 Are There Any Guns Present In Your Home? No Information not available 09/14/2022 Which Of Your Hands Is Dominant? Right Information not available 09/24/2024 Do You Have A Medical Power Of Animal Care Assistant? No Information not available 09/14/2022 What Was The Date Of Your Most Recent Tobacco Screening? 04/15/2025 Information not available 04/15/2025 Do You Have Any Pets? Yes Information not available 09/24/2024 Do You Use Protection During Sex? No Information not available 09/24/2024 What Is Your Relationship Status? Single Information not available 09/14/2022 Have You Repeated Any Grades? No Information not available 09/24/2024 Do You Use Your Seat Belt Or Car Seat Routinely? Yes Information not available 09/14/2022 Are You Sexually Active? Yes Information not available 09/24/2024 Do You Have Any Siblings? Yes Information not available 09/24/2024 Do You Have Smoke And Carbon Monoxide Detectors In Your Home? Yes Information not available 09/14/2022 Are You Passively Exposed To Smoke? No Information not available 09/14/2022 Are There Any Smokers In Your House? No Information not available 09/14/2022 Do You Participate In Social Media? 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 No Information not available 09/14/2022 Has Tobacco Cessation Counseling Been Provided? No Information not available 09/14/2022 Have You Recently Traveled Abroad? No Information not available 09/14/2022 Do You Have Difficulty Walking Or Climbing Stairs? No Information not available 09/24/2024 Are You Currently In School? No Information not available 09/14/2022 What Contraceptive Method Was Reported At Start Of This Visit? Female Sterilization Information not available 12/11/2024 Do You Have Any Dietary Restrictions? No Information not available 09/14/2022 Sex: Female Functional Status Question Answer Note LastModified by [employer] ion Details LastModified Time Do you use any illicit or recreational drugs? No Information not available 09/14/2022 Do you or have you ever used any other forms of tobacco or nicotine? No Information not available 09/14/2022 What is your level of alcohol consumption? None Information not available 09/14/2022 Are you currently employed? No Information not available 09/24/2024 Do you have transportation difficulties? No Information not available 09/24/2024 Are you able to walk? YESWOREST Information not available 09/24/2024 Do you have difficulty doing errands alone? No Information not available 09/24/2024 Are you able to care for yourself? Yes Information n ot available 09/14/2022 Do you have difficulty dressing or bathing? No Information not available 09/24/2024 What is your exercise level? Occasional Information not available 09/24/2024 Mental Status Question Answer Note LastModified by Organizat ion Details LastModified Time Do you feel stressed (tense, restless, nervous, or anxious, or unable to sleep at night)? [id number] Information not available 09/24/2024 Do you have difficulty concentrating, remembering or making decisions? No Information no t available 09/24/2024 Are you or have you been involved with bullying? No Information not available 09/24/2024 Family History Relationship Description Onset Age of this Age Resolved Age Notes LastModified by Organization Details LastModified Time Unspecified Relation Family history of drug abuse Relati ve: ''; Not available 09/24/2024 13:11:23 Unspecified Relation Family history of diabetes mellitus type 2 Relati ve: ''; Not available 09/24/2024 13:11:24 Unspecified Relation Family history of Hypertension Relati ve: ''; Not available 09/24/2024 13:11:24 Unspecified Relation Family history of Respiratory disease Relati ve: ''; Not available 09/24/2024 13:11:24 Mother Hypertensive disorder Not available 2023 13:11:24 Father Hypercholest erolemia Not available 2023 13:11:24 Father Hypertensive disorder Not available 2023 13:11:24 Notes:*Procedure Description : Documented family medical history in mother*Relative: Mother *Procedure Description: Documented family medical history in father*Relative: Father *Procedure Description: Documented family medical history in brother*Relative: Brother Medical History Condition Response Coronary Artery Disease N Other N Gout N Blood Diseases N Kidney Stones N Hyperthyroidism N Blood Transfusion N Breast Cancer N Emergency room visit since last appointm ent. N Lung Disease N COPD N Depression N Dermatologic Disorders N Hypothyroidism N Defects or Inherited Disease N Developmental or Behavioral Disorders N Breast Problem N Difficulty Swallowing N Anesthesia Complications N History of STI N Meniere's disease N Anxiety Disorder N Muscle, Joint, or Bone Problems N Autoimmune disease N Vision or Eye Problems N Arthritis N Polyps N Infertility N Mental Disorder N Congenital Anomalies N Acid Reflux (GERD) N Cancer N Stroke N Neurologic/Epilepsy N Endometriosis N Bladder or Kidney Problems N High Cholesterol Y Liver Disease N Psychiatric/Mental Health Condition N Organ Transplant N Dialysis N Schizophrenia N Fibromyalgia N Headaches Y Kidney Disease N Allergies/Hayfever N Heart Problems N Ear or Hearing Problems N Hospitalizations N Learning Disorder N Artificial Joints N Thyroid Problems N GI Problems N Acne N ADD/ADHD N Eating Disorder N Anemia N Constipation N Mental Illness N Diabetes Y Ovarian Cancer N Bedwetting N Hepatitis/Liver Disease N Tuberculosis N Eczema N Abuse/Domestic Violence N Diverticulitis N Asthma N Trauma/Violence N Substance Abuse N Reflux/GERD N Depression/ depression N Hepatitis N Heart Disease N Pulmonary Embolism N Tourette Syndrome N Chronic Ear Infections N Pre-Eclampsia N Hypertension N Chicken Pox N Autism Spectrum Disorder (ASD) N Osteoporosis N Thrombophilias N Gynecological History Statement/Question Response Abnormal Pap N Sexually Active? Y Menses Monthly N HPV Vaccine N Date of Last Pap Smear 06/19/2024 Current Control Method Hysterectom y Most Recent Mammogram Age at First Child 23 Obstetrics History GPAL:G 3 P 3 0 0 3 Type Value Multiple Births 0 Full Term 3 Induced 0 Spontaneous 0 Premature 0 Living 3 Ectopics 0 Total 3 Past Encounters Encounter ID Performer Location Encounter Start Date Encounter Closed Date Diagnosis/Indication Diagnosis SNOMED-CT Code Diagnosis ICD10 Code Diagnosis Note [id number] JAMIL Weeks [facility] [address] [place] [address] 04/15/2025 14:57:19 04/15/2025 16:11:08 Cervical disc disorder with radiculopathy 140683570 M50.10 New MRI cervical spine (last MRI April 2022) and likely referral back to neurosurge ryLionelase LyricaRF Zanaflex Nausea and vomiting 1693 [id number] R11.2 Health Concerns Section Related Observation LastModified by Organization Detai ls LastModified Time None Recorded Concern Status LastModified by Organization Details LastModified Time None Recorded Payers Encounter Date Sequence Insurance Name Policy Number Policy Rios Covered Member ID Rios Member ID Guarantor Name 04/15/2025 1 [employer] [facility] (MEDICAID HMO) Trinidad Iyer [id number] Trinidad Iyer Notes Date Note Type Note Provider Name and Address Organization Details Recorded Time 04/15/2025 text/html Patient states that neck pain is getting worse. Has restricted ROM, both hands are numb. SHe is dropping things. Has herniated disc but was previously not considered a surgical candidate. Has had PT, injections, chiropractor. Seems to have only gotten worse. JAMIL Weeks [address] [place] [address], [id number], [facility] 04/15/2025 17:49:50 OBGyn Episode No OBEpisode recorded.
--- OUTSIDE RECORDS SUMMARY | 2025-04-30 15:07 | XMS_ITS | Data Portability ---
Author Organization [facility] [place] [facility] Address [address] [place] [address] Assessment No assessment recorded. Plan of Treatment Reminders Order Date Submit Date Provider Last Modified By Organization Details Last Modified Time Details Appointments None recorded. Lab HbA1c (hemoglobin A1c), blood [address], [facility] [place], [address], 5 10:45:24 microalbumi n/creatinin e, mass ratio, urine 2024 025 [facility], [address] [place], [address], 5 10:50:41 rapid SARS CoV 2 Ag, QL, IA, upper respiratory specimen 2024 025 [facility], [address] [place], [address], 5 17:04:01 rapid flu (A+B) 2024 025 [facility], [address] [place], [address], 5 17:03:46 Referral None recorded. Procedures None recorded. Surgeries None recorded. Imaging MRI, cervical spine, w/o contrast 2024 025 [email or web address] [facility] ([facility]), [address], [place], [address], 5 10:21:58 Medication Orders ondansetron 8 mg disintegrat ing tablet 2024 025 [employer], [address] [place] [address], [id number], 17:56:42 Lyrica 100 mg capsule 2024 025 [employer], [address] [place] [address], [id number], 5 10:01:40 tizanidine 4 mg tablet 2024 025 [employer], [address] [place] [address], [id number], 17:56:41 tramadol 50 mg tablet 2024 025 [employer], [address] [place] [address], [id number], 5 14:18:40 pregabalin 75 mg capsule 2024 025 [employer], [address] [place] [address], [id number], 5 11:54:06 butalbital- acetaminoph en-caffeine 50 mg-325 mg-40 mg tablet 2024 025 [employer], [address] [place] [address], [id number], 5 11:54:04 Ozempic 1 mg/dose (4 mg/3 mL) subcutaneou s pen injector 2024 025 [employer], [address] [place] [address], [id number], 5 14:05:04 pregabalin 75 mg capsule 2024 025 [employer] [facility], [address] [place] [address], [id number], 5 15:15:54 cefdinir 300 mg capsule 2024 025 [place] [employer] [facility], [address] [place] [address], [id number], 5 10:41:32 prednisone 20 mg tablet 2024 025 [place] [employer] [facility], [address] [place] [address], [id number], 5 10:41:33 Sudafed 12 Hour 120 mg tablet,exte nded release 2024 025 [place] [employer] [facility], [address] [place] [address], [id number], 5 10:41:34 ketorolac 60 mg/2 mL intramuscul ar solution 2024 025 [facility] [employer] [facility], [address] [place] [address], [id number], 5 10:29:05 pregabalin 75 mg capsule 2024 025 [employer] [facility], [address] [place] [address], [id number], 5 14:18:41 tramadol 50 mg tablet 2024 025 [employer] [facility], [address] [place] [address], [id number], 5 16:36:30 Depo-Medrol 80 mg/mL suspension for injection 2024 025 [facility] [employer], [address] [place] [address], [id number], 10:28:52 ketorolac 60 mg/2 mL intramuscul ar solution 2024 025 [employer] [facility], [address] [place] [address], [id number], 10:29:05 Patient TargetsNo targets recorded. Patient Instructions Encounter Date Encounter Id Patient Instructions Last Modified By Organization Details Last Modified Time 12/11/2024 [id number] back care and preventing injuries: care instructions [email or web address] Not available 12/11/2024 12:58:58 getting back to normal after low back pain: care instructions [email or web address] Not available 12/11/2024 12:58:58 learning about relief for back pain [email or web address] Not available 12/11/2024 12:58:58 type 2 diabetes: care instructions [email or web address] Not available 12/11/2024 15:58:47 high cholesterol : care instructions [email or web address] Not available 12/11/2024 15:58:47 body mass index: care instructions [email or web address] Not available 12/11/2024 15:58:47 learning about healthy weight Not available 12/11/2024 15:58:47 01/17/2025 [id number] headache: care instructions [email or web address] Not available 01/17/2025 14:41:24 Acute Sinusitis: Care Instructions Not available 01/17/2025 14:48:57 04/15/2025 [id number] nausea and vomiting: care instructions [email or web address] Not available 04/15/2025 17:09:22 Reason for Referral None Reported. Results Created Date Observation Date Name Description Value Unit Range Abnormal Flag Note LastModifiedBy Organization Detail LastModifiedTime 01/18/2001/17/2025 rapid SARS CoV 2 Ag, QL, IA, upper respi rator y speci men SARS CoV Ag negati ve Not Available [facility] 4 [facility], [place], [address], 01/17/2025 14:23:11 01/18/20 25 01/17/2025 rapid flu (A+B) Flu A negati ve Not Available [address], [address], 01/17/2025 14:23:29 01/18/20 25 01/17/2025 rapid flu (A+B) Flu B negati ve Not Available [address], [address], 01/17/2025 14:23:29 02/20/20 25 02/19/2025 micro album in/cr eatin ine, mass ratio , urine Microalbumin 30 mg/L Not Available [address], [address], 02/19/2025 10:31:45 02/20/20 25 02/19/2025 micro album in/cr eatin ine, mass ratio , urine Creatinine 300 mg/dL Not Available [address], [address], 02/19/2025 10:31:45 02/20/20 25 02/19/2025 micro album in/cr eatin ine, mass ratio , urine Ratio <30 mg/g Not Available [address], [address], 02/19/2025 10:31:45 02/20/20 25 02/19/2025 HbA1c (hemo globi n A1c), blood HbA1c 5.7 % Not Available [address], [address], 02/19/2025 10:31:13 Result Notes None recorded. Problems Name Problem SNOMED Code Status Onset Date Resolution Date Notes Provider Name and Address Organization Details Recorded Time Diabetes mellitus 61121439 Active [address] [place] [address], [address] [place] [address] , [employer] 4 11:36:00 Cervical disc disorder with radiculo uriel 607944938 Active 2023 JAMIL Weeks [address] [place] [address], [address] [place] [address] , [employer] 4 11:36:16 Migraine 80677244 Active 2023 JAMIL Weeks [address] [place] [address], [address] [place] [address] , [employer] 4 11:36:13 Hyperlip idemia 85019673 Active 2023 JAMIL Weeks [address] [place] [address], [address] [place] [address] , [employer] 4 11:36:09 Deficien cy of vitamin D2 852736969 Active 2023 JAMIL Weeks [address] [place] [address], [address] [place] [address] , [employer] 4 11:36:03 Vitamin D deficien cy 93278068 Active 2023 JAMIL Weeks [address] [place] [address], [address] [place] [address] , [employer] 4 11:36:20 Cough 87231113 Active 2023 Problem Code: R05; Problem Code Type: ICD-10; JAMIL Weeks [address] [place] [address], [address] [place] [address] , [employer] 4 17:04:19 Low back pain 477074334 Active 2024 Problem Code: M54.5; Problem Code Type: ICD-10; JAMIL Weeks [address] [place] [address], [address] [place] [address] , [employer] 5 15:16:16 Acute sinusiti s 31288276 Active 2024 Problem Code: J01.90; Problem Code Type: ICD-10; JAMIL Weeks [address] [place], [address] , [employer] 5 14:48:01 Nausea and vomiting 16384575 Active 2024 JAMIL Weeks [address] [place], [address] , [employer] 5 17:09:02 Plane wart 138431884 Completed 201601/27/2018 Problem Code: B07.8; Problem Code Type: ICD-10; Not Available [facility] 2 21:03:37 Mild major depressi on, single episode 63937348 Completed 201703/28/2018 Problem Code: F32.0; Problem Code Type: ICD-10; Not Available [facility] 2 21:03:37 Anxiety disorder 904058867 Active 2021 Not Available [facility] 21:03:37 Restless legs 15384116 Completed 201606/30/2017 Problem Code: G25.81; Problem Code Type: ICD-10; Not Available [facility] 21:03:37 Insomnia 413882718 Completed 202109/14/2022 RADHA preston, [employer] 10:42:53 Nerve root disorder 58306287 Completed 201708/21/2018 Problem Code: G54.2; Problem Code Type: ICD-10; Not Available [facility] 2 21:03:38 Acute non-supp urative serous otitis media 650012981 Completed 202009/14/2022 Problem Code: H65.0; Problem Code Type: ICD-10; RADHA ANDERSONNEAR null, [employer] 2 10:42:53 Acute non-supp urative serous otitis media 356213996 Completed 202011/19/2021 Problem Code: H65.01; Problem Code Type: ICD-10; RADHA ANDERSONNEAR null, [employer] 2 10:42:53 Acute suppurat lul otitis media 377720597 Completed 201904/16/2021 Not Available [facility] 2 21:03:38 Otalgia of left ear Completed 201809/14/2022 RADHA MAYA null, [employer] 2 10:42:53 Acute maxillar y sinusiti s 06579897 Completed 201909/14/2022 Problem Code: J01.01; Problem Code Type: ICD-10; RADHA MAYA null, [employer] 2 10:42:54 Acute frontal sinusiti s 13385547 Completed 202009/14/2022 Problem Code: J01.10; Problem Code Type: ICD-10; RADHA MAYA null, [employer] 2 10:42:54 Acute sinusiti s 65625499 Completed 201909/14/2022 Problem Code: J01.90; Problem Code Type: ICD-10; JAMIL Weeks [address] [place] [address], [address] , [employer] 5 14:48:01 Acute sinusiti s 76907577 Completed 201604/14/2017 Problem Code: J01.90; Problem Code Type: ICD-10; JAMIL Weeks [address] [place] [address], [address] , [employer] 5 14:48:01 Acute sinusiti s 04682819 Completed 202005/11/2021 Problem Code: J01.90; Problem Code Type: ICD-10; JAMIL Weeks [address] [place] [address], [address] , [employer] 5 14:48:01 Acute sinusiti s 08355702 Completed 202009/08/2021 Problem Code: J01.90; Problem Code Type: ICD-10; JAMIL Weeks [address] [place], [address] , [employer] 5 14:48:01 Acute sinusiti s 59878670 Completed 201707/06/2018 Problem Code: J01.90; Problem Code Type: ICD-10; JAMIL Weeks [address] [place], [address] , [employer] 5 14:48:01 Acute sinusiti s 23153320 Completed 202011/19/2021 Problem Code: J01.90; Problem Code Type: ICD-10; JAMIL Weeks [address] [place], [address] , [employer] 5 14:48:01 Acute pharyngi tis 284303719 Completed 201605/30/2017 Problem Code: J02.8; Problem Code Type: ICD-10; RADHA MYNEAR null, [employer] 2 10:42:54 Acute pharyngi tis 031962127 Completed 201809/14/2022 RADHA MYNEAR null, [employer] 2 10:42:54 Acute pharyngi tis 166060562 Completed 202011/19/2021 RADHA MYNEAR null, [employer] 2 10:42:54 Disorder of upper respirat ory system 186741660 Completed 201711/30/2017 Problem Code: J06.9; Problem Code Type: ICD-10; RADHA MYNEAR null, [employer] 2 10:42:53 Disorder of upper respirat ory system 298766045 Completed 201708/08/2018 Problem Code: J06.9; Problem Code Type: ICD-10; RADHA MYNEAR null, [employer] 2 10:42:53 Disorder of upper respirat ory system 548925598 Completed 201809/14/2022 Problem Code: J06.9; Problem Code Type: ICD-10; RADHA ANDERSONNEAR null, [employer] 2 10:42:53 Disorder of upper respirat ory system 274213502 Completed 201904/16/2021 Problem Code: J06.9; Problem Code Type: ICD-10; RADHA ANDERSONNEAR null, [employer] 10:42:53 Influenz a with gastroin testinal tract involvem ent 929117138 Completed 201904/16/2021 Problem Code: J10.2; Problem Code Type: ICD-10; RADHA ANDERSONNEAR null, [employer] 2 10:42:53 Influenz a with gastroin testinal tract involvem ent 308637665 Completed 202009/14/2022 Problem Code: J10.2; Problem Code Type: ICD-10; RADHA ANDERSONNEAR null, [employer] 2 10:42:53 Major depressi on, single episode 00100148 Active 2021 Problem Code: F32.9; Problem Code Type: ICD-10; Not Available [facility] 2 21:03:41 Acute bronchit is 52295410 Completed 201904/16/2021 Problem Code: J20.9; Problem Code Type: ICD-10; Not Available [facility] 2 21:03:41 Noninfec tious gastroen teritis 78727459 Completed 201904/16/2021 Not Available [facility] 2 21:03:41 Hypertro phic conditio n of skin 88031100 Completed 201703/28/2018 Problem Code: L91.8; Problem Code Type: ICD-10; Not Available [facility] 21:03:41 Pain of right hip joint 92779133107 9102 Completed 201808/18/2020 Problem Code: M25.551; Problem Code Type: ICD-10; Not Available [facility] 2 21:03:42 Pain of joint of hand 022955522 Completed 201809/14/2022 Problem Code: M25.54; Problem Code Type: ICD-10; RADHA MAYA null, [employer] 2 10:42:53 Neck pain 44469155 Completed 201708/21/2018 RADHA JUSTINNEAR null, [employer] 2 10:42:54 Neck pain 84104253 Completed 201809/14/2022 RADHA JUSTINNEAR null, [employer] 2 10:42:54 Low back pain 277138630 Completed 201809/14/2022 Problem Code: M54.5; Problem Code Type: ICD-10; JAMIL Weeks [address] [place] [address], [address] [facility] [employer] 5 15:16:16 Pain in right arm 303220968 Completed 201808/18/2020 Problem Code: M79.601; Problem Code Type: ICD-10; Not Available [facility] 2 21:03:43 Urinary tract infectio us disease 83760553 Completed 201809/14/2022 Problem Code: N39.0; Problem Code Type: ICD-10; RADHA ALFAROR null, [employer] 2 10:42:54 Breast lump 32767790 Completed 201601/27/2018 Problem Code: N63; Problem Code Type: ICD-10; Not Available [facility] 2 21:03:43 Complica tion occurrin g during pregnanc y 780414385 Completed 201809/14/2022 RADHA ALFAROR null, [employer] 2 10:42:54 Cough 17660263 Completed 201909/14/2022 Problem Code: R05; Problem Code Type: ICD-10; JAMIL Weeks [address] [place], [address] , [employer] 4 17:04:19 Diarrhea 02342549 Completed 201601/12/2017 Problem Code: R19.7; Problem Code Type: ICD-10; Not Available [facility] 2 21:03:44 Diarrhea 17451553 Completed 202005/11/2021 Problem Code: R19.7; Problem Code Type: ICD-10; Not Available [facility] 2 21:03:44 Nausea and vomiting 71508458 Completed 201601/12/2017 Problem Code: R11.2; Problem Code Type: ICD-10; JAMIL Weeks [address] [place], [address] , [employer] 5 17:09:02 Dizzines s and giddines s 575537389 Completed 202009/14/2022 Problem Code: R42; Problem Code Type: ICD-10; RADHA ALFAROR null, [employer] 2 10:42:54 Headache 78273041 Completed 201809/14/2022 Problem Code: R51; Problem Code Type: ICD-10; RADHA ANDERSONNEAR null, [employer] 2 10:42:53 Otalgia of left ear Completed 201808/18/2020 RADHA ANDERSONNEAR null, [employer] 2 10:42:53 General examinat ion of patient Completed 201804/16/2021 Not Available [facility] 21:03:46 Viral screenin g Completed 201904/16/2021 Problem Code: Z11.59; Problem Code Type: ICD-10; Not Available [facility] 21:03:47 Normal pregnanc y in multigra nilesh 81687647001 4106 Completed 201809/14/2022 Problem Code: Z34.81; Problem Code Type: ICD-10; RADHA preston, [employer] 10:42:54 Body mass index 30+ - obesity 974356607 Active 2019 Problem Code: Z68.34; Problem Code Type: ICD-10; Not Available [facility] 2 21:03:48 Body mass index 30+ - obesity 762998375 Completed 201808/18/2020 Problem Code: Z68.32; Problem Code Type: ICD-10; Not Available [facility] 21:03:49 Body mass index 30+ - obesity 272047186 Completed 201708/18/2020 Problem Code: Z68.33; Problem Code Type: ICD-10; Not Available [facility] 2 21:03:49 Single major depressi ve episode, mild Completed 201703/28/2018 Problem Code: 296.21; Problem Code Type: ICD-9; Not Available [facility] 2 21:03:49 Verruca vulgaris 85458355 Completed 201606/30/2017 Problem Code: 078.10; Problem Code Type: ICD-9; Not Available [facility] 21:03:50 Myositis 02964713 Completed 202109/14/2022 Problem Code: M60.9; Problem Code Type: ICD-10; RADHA preston, [employer] 2 10:42:54 Cough 64131214 Completed 201711/30/2017 Problem Code: R05; Problem Code Type: ICD-10; JAMIL Weeks [address] [place] [address], [address] , [employer] 4 17:04:19 Brachial plexus disorder 0439138 Completed 201708/21/2018 Problem Code: 353.0; Problem Code Type: ICD-9; Not Available [facility] 2 21:03:51 Cough 80014066 Completed 202011/19/2021 Problem Code: R05; Problem Code Type: ICD-10; JAMIL Weeks [address] [place] [address], [address] , [employer] 4 17:04:19 Acute upper respirat ory infectio n of multiple sites Completed 201708/08/2018 Problem Code: 465.8; Problem Code Type: ICD-9; Not Available [facility] 2 21:03:52 Vomiting 940816461 Completed 202109/14/2022 RADHA JUSTINNEAR null, [employer] 2 10:42:54 Nausea and vomiting 71993423 Completed 201710/09/2018 Problem Code: R11.2; Problem Code Type: ICD-10; JAMIL Weeks [address] [place] [address], [address] , [employer] 5 17:09:02 Diarrhea 21759932 Completed 201708/24/2018 Problem Code: R19.7; Problem Code Type: ICD-10; Not Available [facility] 2 21:03:53 Eruption 710254620 Completed 201707/06/2018 Problem Code: R21; Problem Code Type: ICD-10; Not Available [facility] 2 21:03:53 Dysuria 77012201 Completed 201809/14/2022 Problem Code: R30.0; Problem Code Type: ICD-10; RADHA ANDERSONNEAR null, [employer] 2 10:42:54 Headache 01842251 Completed 202101/11/2022 RADHA ANDERSONNEAR null, [employer] 2 10:42:53 Examinat ion for suspecte d tubercul osis Completed 201809/03/2019 Problem Code: V71.2; Problem Code Type: ICD-9; Not Available [facility] 2 21:03:55 Body mass index 30+ - obesity 226204039 Completed 202101/11/2022 Problem Code: Z68.31; Problem Code Type: ICD-10; Not Available [facility] 21:03:56 Body mass index 30+ - obesity 653896921 Completed 202005/11/2021 Problem Code: Z68.31; Problem Code Type: ICD-10; Not Available [facility] 21:03:56 Problem Notes None recorded. Procedures Surgical History Date Name Laterality Status Provider Name and Address Organization Details Recorded Time 02/20/20 25 Diabetic Foot Screen completed JAMIL Weeks [address] [place] [address], [address], [employer] 02/21/2025 13:03:03 12/11/19 25 Diabetic Foot Screen completed JAMIL Weeks [address] [place] [address], [address], [employer]. 12/11/2024 15:57:25 06/19/20 24 Date of Last Pap Smear completed [employer] 12/11/2024 12:29:40 09/27/20 20 ligation of bilateral fallopian tubes completed Not Available [facility] 07/20/2022 22:56:05 09/27/20 20 tonsillectomy and adenoidectomy completed Not Available [facility] 07/20/2022 22:56:05 Hysterectomy completed [employer] 09/24/2024 13:11:25 Tubal Ligation completed [employer] 09/24/2024 13:11:25 Endometrial Ablation completed [employer] 09/24/2024 13:11:25 Imaging Results None recorded. Procedure Notes None recorded. Medical Equipment None Reported. Allergies Allergen ID Allergen Name Allergen Category Reaction Reaction Severity Criticality Documentation Date Start Date Code Code System Note Provider Name and Address Organization Details Recorded Time 41521 amoxicill in trihydrat e medicatio n vomiting Not available Not available 07/20/2022 05595 8 [employer] 4 13:13:35 61185 Augmentin medicatio n vomiting Not available Not available 07/20/2022 56958 2 RxNorm Not Available [facility] 2 22:56:45 89813 azithromy valerie medicatio n nausea vomiting Not available Not available Not available 07/20/2022 39201 RxNorm Not Available [facility] 2 22:56:45 28416 Pediazole medicatio n other Not available Not available 07/20/2022 10212 RxNorm Not Available [facility] 2 22:56:46 Medications Name Sig Start Date [...] Ultra-Fine Janel Pen Needle 32 gauge x 5/32 USE TO INJECT INSULIN 2 TIMES EACH [...] Not Available No t Available Dexcom G7 Wellness Coordinator use to monitor blood sugar; replace every [...] height Body mass index (BMI) Body weight Heart rate Oxygen saturation Oxygen saturation in Arterial blood by Pulse oximetry Body temperature Systolic blood pressure Diastolic blood pressure Provider Name and Address Organization Details Last Updated DateTime 5 157.48 cm 30.5 kg/m2 25168.4 9 g 84 /min 99 % 99 % 97.8 [degF] 128 mm[Hg] 84 mm[Hg] [employer] 5 10:35:37 Date Recorded Body height Body mass index (BMI) Body weight Body temperature Heart rate Oxygen saturation Oxygen saturation in Arterial blood by Pulse oximetry Systolic blood pressure Diastolic blood pressure Provider Name and Address Organization Details Last Updated DateTime 5 157.48 cm 30.6 kg/m2 92949.6 3 g 98 [degF] 75 /min 97 % 97 % 127 mm[Hg] 85 mm[Hg] [facility] 5 14:22:19 Date Recorded Body height Body mass index (BMI) Body weight Oxygen saturation Oxygen saturation in Arterial blood by Pulse oximetry Heart rate Body temperature Systolic blood pressure Diastolic blood pressure Provider Name and Address Organization Details Last Updated DateTime 5 157.48 cm 30.7 kg/m2 40402.0 8 g 98 % 98 % 80 /min 97.8 [degF] 114 mm[Hg] 80 mm[Hg] [employer] 5 10:28:12 Date Recorded Body height Body mass index (BMI) Body weight Oxygen saturation Oxygen saturation in Arterial blood by Pulse oximetry Heart rate Body temperature Systolic blood pressure Diastolic blood pressure Provider Name and Address Organization Details Last Updated DateTime 5 157.48 cm 29.3 kg/m2 15390.5 g 99 % 99 % 96 /min 98.2 [degF] 132 mm[Hg] 84 mm[Hg] [employer] 5 15:15:24 Social History Question Answer Notes LastModified by Organizat ion Details LastModified Time Tobacco Smoking Status Never Smoker SocialHi storyQue stion: 'Tobacco /Alcohol /Supplem ents'; SocialHi storyFrances ponse: 'Never Smoker'; Not Available [facility] 07/20/2022 22:59:21 Do You Have An Advance [...] Information not available 09/14/2022 What Type Of Vehicle Insurance Agent Do You Use? None Information not available [...] Or The Highest Degree You Have Received? [id number] Information not available 09/24/2024 Who Is Your [...] Do You Have A Medical Power Of Auricular Acupuncturist? No Information not available 09/14/2022 What Was [...] Functional Status Question Answer Note LastModified by Organizat ion Details LastModified Time Do you use [...] Mental Status Question Answer Note LastModified by [employer] Details LastModified Time Do you feel stressed (tense, restless, nervous, or anxious, or unable to sleep at night)? [id number] Information not available 09/24/2024 Do you have [...] SNOMED-CT Code Diagnosis ICD10 Code Diagnosis Note [id number] Emelina Al APRN [address] [address] 09/14/2022 10:15:29 09/14/2022 11:04:58 Viral gastroenteritis 300736025 A08.4 Patient is a 31 year old female who presents today with diarrhea. Associated symptoms are as noted in the HPI. Differenti al diagnosis includes: viral gastroente ritis Patient instructed to continue with fluids and advance to a regular diet as is able to tolerate it. May give yogurt with probiotic to aid in slowing diarrhea. Return to the office for diarrhea lasting more than 1 week or blood in stool. [id number] JAMIL Weeks [address] [address] 09/24/2024 13:05:06 09/24/2024 15:04:26 Diabetes mellitus 86194451 E11.9 Cervical d isc disorder with radiculopathy 376171570 M50.10 Body mass index 30+ - obesity 075793286 Z68.30 Migraine 90821452 G43.90 9 Hyperlipidemia 90380466 E78.5 Adult heal th examination 165810715 Z00.00 Long-term current use of drug therapy 945019947 Z79.899 Vitamin D deficiency 347 27092 E55.9 Cough 92552180 R05.9 [id number] JAMIL Weeks [address] [address] 12/11/2024 10:26:09 12/11/2024 11:12:24 Low back pain 767677363 M54.50 Body mass index 30+ - obesity 293183269 Z68.30 Cervical d isc disorder with radiculopathy 188115655 M50.10 Hyperlipidemia 09159843 E78.5 Type 2 abdullahi betes mellitus without complication 267078237 E11.9 [id number] JAMIL Weeks [address] [address] 12/17/2024 13:52:04 12/17/2024 14:42:08 Low back pain 151726895 M54.50 Patient seen by me last week for LBPHere today with and requested repeat injection [id number] JAMIL Weeks [address] [place] [address] 01/17/2025 14:09:19 01/17/2025 17:18:27 Headache [id number] R51.9 Acute sinusitis [id number] J01.90 Cervical d isc disorder with radiculopathy [id number] M50.10 [id number] JAMIL Weeks [facility] [address] [place] [id number] 02/19/2025 10:17:59 02/19/2025 11:02:39 Diabetes mellitus [id number] E11.9 Cervical d isc disorder with radiculopathy [id number] M50.10 Migraine [id number] G43.90 [id number] JAMIL Weeks [facility] [address] [place] [address] 04/15/2025 14:57:19 04/15/2025 16:11:08 Cervical disc disorder with radiculopathy [id number] M50.10 New MRI cervical spine (last MRI April 2022) and likely referral back to neurosurge ryChaitanya SilverricAnthony Zanaflex Nausea and vomiting [id number] R11.2 Health Concerns Section Related Observation LastModified by Organization Detai ls LastModified Time None Recorded Concern Status LastModified by Organization Details LastModified Time None Recorded Advance Directives Directive N: Payers Insurance Date Sequence Insurance Name Policy Number Policy Rios Covered Member ID Rios Member ID Guarantor Name 04/14/2025 1 [facility] (MEDICAID HMO) Trinidad Iyer [id number] Trinidad Iyer Notes Date Note Type Note Provider Name and Address Organization Details Recorded Time 12/11/2024 text/html Patient presents for followup. History of neck pain and cervical radiculopathy. Fell last week and injured her low back/tailbone. Seen at [facility] and Xrays were negative. Still very painful. Hurts to move. JAMIL Weeks [address] [place] [address], [phone], [place] [facility] [employer] 12/11/2024 16:01:00 01/17/2025 text/html headache, fever, body aches, chills. Face hurts, teeth hurt. Ears feel like they will explode. Has felt poorly for 3-4 days. No vomiting or diarhhea. JAMIL Weeks [address] [place], [address], [employer] 01/17/2025 15:15:58 02/19/2025 text/html Patient presents for followup.History of diabetes. States she is doing ok, but feels like Ozempic isn't helping as much as it once did.History of migraines.History of cervical disc disorder with radiculopathy. Needs refills. JAMIL Weeks [address] [place], [phone], [employer], [employer]. 02/21/2025 13:05:00 04/15/2025 text/html Patient states that neck pain is getting worse. Has restricted ROM, both hands are numb. SHe is dropping things. Has herniated disc but was previously not considered a surgical candidate. Has had PT, injections, chiropractor. Seems to have only gotten worse. JAMIL Weeks [address] [place], [phone], [employer] 04/15/2025 17:49:50 OBGyn Episode No OBEpisode recorded.
--- NOTE | 2025-04-30 15:08 | MR_ITS ---
FINAL REPORT CLINICAL HISTORY: CERVICAL DISC DISORDER NECK PAIN WITH BURNING DOWN TO SHOULDER BLADES , NUMBNESS DOWN BOTH ARMS INTO HANDS COMPARISON: 09/29/2023 FINDINGS: Multi planar MR imaging was obtained of the cervical spine. There is abnormal decreased signal throughout the cervical discs. The vertebrae are of normal height. There is no malalignment. The cervical cord demonstrates normal signal and configuration. C2-C3: There is no evidence of significant disc bulge or protrusion. There is no significant facet hypertrophy. C3-C4: There is no evidence of significant disc bulge or protrusion. There is no significant facet hypertrophy. C4-C5: Mild diffuse disc bulges present with mild spinal and mild left neuroforaminal narrowing. Finding is slightly worse than previous. C5-C6: There is no evidence of significant disc bulge or protrusion. There is no significant facet hypertrophy. C6-C7: There is no evidence of significant disc bulge or protrusion. There is no significant facet hypertrophy. C7-T1: There is no evidence of significant disc bulge or protrusion. There is no significant facet hypertrophy. IMPRESSION: Diffuse disc bulge at C4-5 with mild spinal and left neuroforaminal narrowing, slightly worse than previous. Reviewed, Interpreted and Dictated by Nitin Hills MD Transcribed by Iris Donnelly Authenticated and [facility]
== END 2025-04-30 23:59 | disposition home or self-care (01) ==
LOC: RAD 15:04
PROVIDERS: PCP Physician Assistant; Visit Provider Physician Assistant
DX: M50.10 Cervical disc disorder with radiculopathy, unspecified cervical region (principal); M50.221 Other cervical disc displacement at C4-C5 level; M48.02 Spinal stenosis, cervical region; M99.71 Connective tissue and disc stenosis of intervertebral foramina of cervical region
CPT/HCPCS: 72141